=== PATIENT | male | born 1985 | race African-American/Black ===

== ENCOUNTER 2022-09-15 06:14 | Emergency (ER) | payer OTHER ==
--- NOTE | 2022-09-15 06:41 | EDPHYS ---
Physician Documentation [facility] Name: Clayton Shetty JR. Age: 37 yrs Sex: Male : 1985 Arrival Date: 09/15/2022 Time: 06:16 Bed 15 Private MD: ED Physician Joe Angulo HPI: 09/15 06:33 This 37 yrs old Black Male presents to ER via Ambulatory with complaints of Congestion. rn 06:33 The patient or guardian reports nasal congestion. Onset: The symptoms/episode rn began/occurred 2 week(s) ago. Severity of symptoms: At their worst the symptoms were mild, in the emergency department the symptoms are unchanged. Modifying factors: The symptoms are alleviated by nothing, the symptoms are aggravated by nothing. Associated signs and symptoms: Pertinent positives: rhinorrhea, Pertinent negatives: fever, sore throat, vomiting. The patient has experienced similar episodes in the past. The patient has been recently seen by a physician:. Pt reports nasal congestion, for 2 weeks, seen here for this and given abx, slightly improved but not gone. Has also been using multiple over the counter meds in addition to sinus rinses and humidifiers. . Historical: - Allergies: 06:24 No Known Allergies; kl - Home Meds: 06:24 losartan 100 mg Oral tab 1 tab once daily [Active]; kl - PMHx: 06:24 Hypertensive disorder; kl - PSHx: 06:24 Testicle removed; kl - Immunization history:: Adult Immunizations up to date. - Social history:: Smoking status: Patient denies any tobacco usage or history of. - Family history:: not pertinent. - Hospitalizations: : No recent hospitalization is reported. ROS: 06:33 Constitutional: Negative for fever, chills, and weight loss, Eyes: Negative for injury, rn pain, redness, and discharge, ENT: + nasal congestion Cardiovascular: Negative for chest pain, palpitations, and edema, Respiratory: Negative for shortness of breath, cough, wheezing, and pleuritic chest pain. Exam: 06:33 Constitutional: This is a well developed, well nourished patient who is awake, alert, rn and in no acute distress. Head/Face: Normocephalic, atraumatic. Eyes: Periorbital areas with no swelling, redness, or edema. ENT: Inflamed nasal turbinates, no stridor, MMM Vital Signs: 06:23 BP 160 / 92; Pulse 98; Resp 16; Pulse Ox 99% ; Pain 0/10; kl 06:34 Temp 97.9(O); Weight 86.18 kg (R); Height 5 ft. 9 in. (175.26 cm) (R); aa9 06:35 BP 147 / 96; Pulse 86; Resp 17 S; Pulse Ox 99% on R/A; aa9 06:45 BP 147 / 96; Pulse 78; Resp 18 S; Pulse Ox 98% on R/A; aa9 06:34 Body Mass Index 28.06 (86.18 kg, 175.26 cm) aa9 MDM: 06:17 Patient medically screened. rn 06:33 Differential Diagnosis: Upper Respiratory Infection Allergic Rhinitis Other viral rn syndrome. Data reviewed: vital signs, nurses notes, and as a result, I will discharge patient. Counseling: I had a detailed discussion with the patient and/or guardian regarding: the historical points, exam findings, and any diagnostic results supporting the discharge/admit diagnosis, the need for outpatient follow up, to return to the emergency department if symptoms worsen or persist or if there are any questions or concerns that arise at home. Special discussion: I discussed with the patient/guardian in detail that at this point there is no indication for admission to the hospital. It is understood, however, that if the symptoms persist or worsen the patient needs to return immediately for re-evaluation. Based on the history and exam findings, there is no indication for further emergent testing or inpatient evaluation. I discussed with the patient/guardian the need to see the primary care provider for further evaluation of the symptoms. ED course: Pt has pcp appt tomorrow, do not recommend another round of abx. Afebrile, no oxygen requirement. Recommend time and pcp f/u. . Administered Medications: No medications were administered Disposition Summary: 09/15/22 06:41 Discharge Ordered Location: Home rn Problem: an ongoing problem rn Symptoms: have improved rn Condition: Stable rn Diagnosis - Nasal congestion rn Followup: rn - With: Private Physician - When: As needed - Reason: Recheck today's complaints, Re-evaluation by your physician Discharge Instructions: - Discharge Summary Sheet rn - Upper Respiratory Infection, Adult rn Forms: - Medication Reconciliation Form rn - Thank You Letter rn - Antibiotic fashion intern - Prescription Opioid Use rn Signatures: Alma Fernandez RN RN Joe Brownlee MD MD rn
--- NOTE | 2022-09-15 06:41 | ER ---
Nurse's Notes [facility] Name: Clayton Shetty JR. Age: 37 yrs Sex: Male : 1985 Arrival Date: 09/15/2022 Time: 06:16 Bed 15 Private MD: Diagnosis: Nasal congestion Presentation: 09/15 06:23 Chief complaint: Patient states: persistent congestion after 4 days of antibiotics seen here recently for similar complaints. Coronavirus screen: Vaccine status: Patient reports receiving the 2nd dose of the covid vaccine. Ebola Screen: Patient negative for fever greater than or equal to 101.5 degrees Fahrenheit, and additional compatible Ebola Virus Disease symptoms. Initial Sepsis Screen: Does the patient meet any 2 criteria? No. Patient's initial sepsis screen is negative. Does the patient have a suspected source of infection? No. Patient's initial sepsis screen is negative. Risk Assessment: Do you want to hurt yourself or someone else? Patient reports no desire to harm self or others. 06:23 Method Of Arrival: Ambulatory 06:23 Acuity: CEM 4 06:35 Onset of symptoms was September 15, 2022. aa9 Triage Assessment: 06:25 General: Appears in no apparent distress. comfortable, Behavior is calm, cooperative. Pain: Denies pain. Respiratory: No deficits noted. Airway is patent Trachea midline Respiratory effort is even, unlabored, Respiratory pattern is regular, symmetrical. GI: Reports change in bowel habits/size of stool. : No deficits noted. Historical: - Allergies: 06:24 No Known Allergies; - Home Meds: 06:24 losartan 100 mg Oral tab 1 tab once daily [Active]; - PMHx: 06:24 Hypertensive disorder; - PSHx: 06:24 Testicle removed; - Immunization history:: Adult Immunizations up to date. - Social history:: Smoking status: Patient denies any tobacco usage or history of. - Family history:: not pertinent. - Hospitalizations: : No recent hospitalization is reported. Screenin:34 Abuse screen: Denies threats or abuse. Denies injuries from another. Nutritional aa9 screening: No deficits noted. Tuberculosis screening: No symptoms or risk factors identified. Fall Risk None identified. Assessment: 06:36 General: Appears comfortable, well groomed, Behavior is calm, cooperative. Neuro: Level aa9 of Consciousness is awake, alert, obeys commands, Oriented to person, place, time, situation. Cardiovascular: Patient's skin is warm and dry. Respiratory: Airway is patent Respiratory effort is even, labored. Vital Signs: 06:23 BP 160 / 92; Pulse 98; Resp 16; Pulse Ox 99% ; Pain 0/10; kl 06:34 Temp 97.9(O); Weight 86.18 kg (R); Height 5 ft. 9 in. (175.26 cm) (R); aa9 06:35 BP 147 / 96; Pulse 86; Resp 17 S; Pulse Ox 99% on R/A; aa9 06:45 BP 147 / 96; Pulse 78; Resp 18 S; Pulse Ox 98% on R/A; aa9 06:34 Body Mass Index 28.06 (86.18 kg, 175.26 cm) aa9 ED Course: 06:16 Patient arrived in ED. bp1 06:16 Joe Angulo MD is Attending Physician. rn 06:18 Sarah Devlin RN is Primary Nurse. aa9 06:24 Triage completed. kl 06:34 Arm band placed on right wrist. aa9 06:35 Patient has correct armband on for positive identification. Bed in low position. Call aa9 light in reach. 06:35 Door closed. Lights dimmed. aa9 06:45 No provider procedures requiring assistance completed. Patient did not have IV access aa9 during this emergency room visit. Administered Medications: No medications were administered Medication: 06:34 VIS not applicable for this client. aa9 Outcome: 06:41 Discharge ordered by . rn 06:46 Discharged to home ambulatory. aa9 06:46 Condition: stable 06:46 Discharge instructions given to patient, Instructed on discharge instructions, follow up and referral plans. Demonstrated understanding of instructions, follow-up care. 06:46 Patient left the ED. aa9 Signatures: Alma Fernandez RN RN kl Nieto, Roman, MD MD rn Paniauga, Brittany bp1 Avalos, Aylin, RN RN aa9
[2022-09-15 06:51] VITALS: TEMP 97.9
[2022-09-15 06:53] VITALS: BP 147/96
[2022-09-15 06:54] VITALS: O2SAT 98
== END 2022-09-15 06:46 | disposition home or self-care (01) ==
LOC: ER 06:14
DX: R09.81 Nasal congestion (principal); I10 Essential (primary) hypertension
CPT/HCPCS: 99281

== ENCOUNTER 2022-09-18 17:02 | Emergency (ER) | payer OTHER ==
--- OUTSIDE RECORDS SUMMARY | 2022-09-18 17:05 | XMS REPORT | Continuity of Care Document ---
:1985 Author Organization [facility] t Address [address] [place] [address] Care Team Providers Name Role Phone SHIVA BROOKS Primary Care Physician Unavailable MARLYN MAHER Attending Clinician Unavailable Nika ARTIFICIAL LIMB FITTERMarlyn Blanton Attending Clinician MARLYN MAHER Admitting Clinician Unavailable Problems This patient has no known problems. Allergies, Adverse Reactions, Alerts Allergy Allergy Status Severity Reaction(s) Onset Inactive Treating Comm ents Source Name Type Date Date Clinician NO KNOWN Drug Active [facility] ALLERGIE Class ity of [facility] Social History Social Habit Start Date Stop Date Quantity Comments Source Exposure to 2022-04-02 2022-04-12 Not sure [facility] SARS-CoV-2 (event) 00:00:00 19:31:00 Medica l Branch Sex Assigned At [birth year] [facility] 00:00:00 00:00:00 [facility] Smoking Status Start Date Stop Date Source Unknown if ever smoked [facility] Medications Ordered Filled Start Stop Current Ordering Indication Dosage Frequency Signature Comments Components Source Medication Medication Date Date Medication? Clinician (SIG) Name Name ketorolac 2021- No 30mg 30 mg, Unive rs (TORADOL) 04-13 Slow IV ity of injection 02:45: 01:43 Push, [place] 30 mg 00 :00 ONCE, 1 Medical dose, On Branch 04/12/22 at 2145, SEGUNDO ibuprofen Yes [id number] 800mg Take 1 [facility] 800 mg 5-16 tablet by ity of tablet 00:00: mouth [place] 00 every 8 Medical (eight) Branch hours as needed for Pain (scale 4-6). methocarbam Yes [id number] 750mg Take 1 Univers oL 750 mg 5-16 tablet by ity o f tablet 00:00: mouth 4 [place] 00 (four) Medical times Branch daily as needed for Pain (scale 7-10). Vital Signs Vital Name Observation Time Observation Value Comments Source Systolic blood 2022-04-13 02:08:00 147 [facility]Hg[facility] Diastolic blood 2022-04-13 02:08:00 96 mm[Hg] [facility] Heart rate 2022-04-13 02:08:00 62 /min [facility] Respiratory rate 2022-04-13 02:08:00 16 /min [facility] Oxygen saturation in 2022-04-13 02:08:00 100 /min [facility] Arterial blood by [facility] Pulse oximetry [place] Body temperature 2022-04-13 00:35:00 36.78 Jessica [facility] Body height 2022-04-13 00:35:00 172.7 cm [facility] Body weight 2022-04-13 00:35:00 83.915 kg [facility] BMI 2022-04-13 00:35:00 28.13 kg/m2 [facility] Procedures Procedure Date / Time Performing Clinician Source Performed XR CHEST 1 VW 2022-04-13 01:02:00 Marlyn Maher [facility] TROPONIN I 2022-04-13 00:53:00 [facility] COMP. METABOLIC PANEL 2022-04-13 00:53:00 Marlyn Maher [facility] ([id number]) [facility] CBC WITH DIFF 2022-04-13 00:53:00 Marlyn Maher [facility] PROTHROMBIN TIME / INR 2022-04-13 00:53:00 Marlyn Maher [facility] URINALYSIS 2022-04-13 00:53:00 Marlyn Maher [facility] N-TERMINAL PRO-BNP 2022-04-13 00:53:00 [facility] En[facility] Start End Encounter Admission Attending Care Care Encounter Source Date/Time Date/Time Type Type Clinicians Facility Department ID 2022-04-12 2022-04-12 Emergency X NIKA [email or web address] ERT [id number] [facility] 19:25:00 21:10:00 MARLYN prietojeff [facility] 2022-04-12 2022-04-12 [facility] [id number] [facility] 19:25:00 21:10:00 Marlyn HANSON [id number] i ty [facility] [id number] [facility] [id number] [place] [id number] [place] Results Test Description Test Time Test Comments Results Result Comments Source TROPONIN I 2022-04-13 01:26:29 Test Item Value Reference Range Interpretation Comme nts TROPONIN I (test code = 0.008 ng/mL See_Comment [Au tomated message] The [id number]) system which ge nerated this result tra nsmitted reference range : <=0.034. The reference r jordi was not used to int erpret this result as normal/abnormal . OZZY (test code = OZZY) Reference (Normal) Range (defined by the 99th percentile reference limit): <= 0.034 ng/mL Note: Cardiac troponin begins to rise 3-4 hours after the onset of ischemia. Repeat in 4-6 hours if the sample was drawn within 3-4 hours of the onset of the symptom and found normal. Diagnosis of myocardial injury is made with acute changes in cTn concentrations with at least one serial sample above the 99th percentile upper reference limit (URL), taken together with the patient's clinical presentation. Biotin has been reported to cause a negative bias, interpret results relative to patient's use of biotin. Lab Interpretation Normal (test code = 43754-5) [facility] [id number] 01:23:27 Test Item Value Reference Range Interpretation Comments NT-proBNP (test code 64 pg/mL See_Comment [Autom ated = [id number]) message] The system which generated this result transmitted reference range : <=125. The reference range was not used to interpret this result as normal/abnormal . OZZY (test code = OZZY) Biotin has been reported to cause a negative bias, interpret results relative to patient's use of biotin. Lab Interpretation Normal (test code = 00855-3) [facility] [place] [facility]. METABOLIC PANEL ([id number])2022-04-13 01:14:46 Test Item Value Reference Range Interpretation Comments NA (test code = 136 mmol/L 135-145 6737164951) K (test code = 4.1 mmol/L 3.5-5.0 8410755474) CL (test code = 105 mmol/L 98-108 7731936780) CO2 TOTAL (test code 23 mmol/L 23-31 = 3075356216) AGAP (test code = 2-16 7752590800) BUN (test code = 18 mg/dL 7-23 4049439951) GLUCOSE (test code = 98 mg/dL 70-110 5450953602) CREATININE (test code 1.20 mg/dL 0.60-1.25 = 2624421739) TOTAL BILI (test code 0.6 mg/dL 0.1-1.1 = 1202541211) CALCIUM (test code = 9.3 mg/dL 8.6-10.6 3693822222) T PROTEIN (test code 7.3 g/dL 6.3-8.2 = 3313781294) ALBUMIN (test code = 4.7 g/dL 3.5-5.0 6650782060) ALK PHOS (test code = 46 U/L 34-122 9577542978) ALTv (test code = 19 U/L 5-50 1742-6) AST(SGOT) (test code 26 U/L 13-40 = 0695185190) eGFR (test code = mL/min/1.73m2 9342607809) OZZY (test code = OZZY) Association of Glomerular Filtration Rate (GFR) and Staging of Kidney Disease* + + +- +| GFR (mL/min/1.73 m2) ?| With Kidney Damage ?| ?Without Kidney Damage+ ------+ ----+ ------+| ?>90 ?| ?Stage one ?| ? Normal ?+ -+ + -+| ?60-89 ?| ?Stage two ?| ? Decreased GFR ? + + +- +| ?30-59 ?| ?Stage three ?| ? Stage three ? + + +- +| ?15-29 ?| ?Stage four ? | ? Stage four ?+ -+ + -+| ?<15 (or dialysis) ? ?| ?Stage five ? | ? Stage five ?+ -+ + -+ *Each stage assumes the associated GFR level has been in effect for at least three months. ?Stages 1 to 5, with or without kidney disease, indicate chronic kidney disease. Notes: Determination of stages one and two (with eGFR >59mL/min/1.73 m2) requires estimation of kidney damage for at least three months as defined by structural or functional abnormalities of the kidney, manifested by either:Pathological abnormalities or Markers of kidney damage (including abnormalities in the composition of the blood or urine or abnormalities in imaging tests). [facility] / [id number] 01:13:46 Test Item Value Reference Range Interpretation Comments PROTIME PATIENT (test See_Comment [Auto mated message] code = 5964-2) The system wh ich generated this result transmitted ref erence range: 12.0 - 1 4.7 Seconds. The re ference range was not u sed to interpret this result as normal/abnor mal. INR (test code = 6301-6) Nor mal INR <1.1; Warfarin Therap eutic range 2.0 to 3. 0 or 2.5 to 3.5, dep ending upon the indica tions. Lab Interpretation (test Normal code = 67327-3) [facility] WITH [id number] 01:02:25 Test Item Value Reference Range Interpretation Comments WBC (test code = See_Comment L [Automated 4490-2) message] The sy stem which generated this result transmitted reference range : 4.20 - 10.70 10*3/?L. The reference range was not used to interpret this result as normal/abnormal . RBC (test code = See_Comment [Automated 369-8) message] The sy stem which generated this result transmitted reference range : 4.26 - 5.52 10*6/?L. The reference range was not used to interpret this result as normal/abnormal . HGB (test code = 13.9 g/dL 12.2-16.4 718-7) HCT (test code = 41.5 % 38.4-49.3 4544-3) MCV (test code = 86.5 fL 81.7-95.6 787-2) MCH (test code = 29.0 pg 26.1-32.7 785-6) MCHC (test code = 33.5 g/dL 31.2-35.0 786-4) RDW-SD (test code = 41.2 fL 38.5-51.6 46716-6) RDW-CV (test code = 13.1 % 12.1-15.4 788-0) PLT (test code = See_Comment [Automated 777-3) message] The sy stem which generated this result transmitted reference range : 150 - 328 10*3/ ?L. The reference r jordi was not used to interpret this result as normal/abnormal . MPV (test code = 10.2 fL 9.8-13.0 26089-0) NRBC/100 WBC (test See_Comment [Automat ed code = 8602612553) message] The system which generated this result transmitted reference range : 0.0 - 10.0 /100 WBCs. The refer ence range was not u sed to interpret th is result as normal/abnormal . NRBC x10^3 (test code <0.01 See_Comment [Auto mated = 2685871870) message] The s ystem which generated this result transmitted reference range : 10*3/?L. The reference range was not used to interpret this result as normal/abnormal . GRAN MAT (NEUT) % 53.9 % (test code = 770-8) IMM GRAN % (test code 0.30 % = 9107752555) LYMPH % (test code = 29.5 % 736-9) MONO % (test code = 13.4 % 5905-5) EOS % (test code = 2.4 % 713-8) BASO % (test code = 0.5 % 706-2) GRAN MAT x10^3(ANC) 2.01 10*3/uL 1.99-6.95 (test code = 2145077316) IMM GRAN x10^3 (test <0.03 0.00-0.06 code = 2558239549) LYMPH x10^3 (test code 1.10 10*3/uL 1.09-3.23 = 731-0) MONO x10^3 (test code 0.50 10*3/uL 0.36-1.02 = 742-7) EOS x10^3 (test code = 0.09 10*3/uL 0.06-0.53 711-2) BASO x10^3 (test code <0.03 0.01-0.09 = 704-7) Lab Interpretation Abnormal (test code = 46142-5) [facility]"
[2022-09-18] MEDS ORDERED: KETOROLAC 30 MG/ML INJ ONE (18:07)
[2022-09-18 18:08] LABS: Absolute Lymphocytes (CBC) 0.6 K/uL (0.7-4.9); Hematocrit 40.5 % (39.6-49.0); Lymphocytes % 11.3 % (15.3-44.8); MCV 85.4 fL (80-100); MPV 8.4 fL (7.6-11.3); RBC Red Blood Cell Count 4.74 M/uL (4.33-5.43)
[2022-09-18 18:23] LABS: Protime INR 1.19
[2022-09-18 18:27] LABS: Magnesium 2.2 mg/dL (1.8-2.4); Potassium 3.9 mmol/L (3.5-5.1); Troponin High Sensitivity 8.1 pg/mL (<58.9)
[2022-09-18 18:40] LABS: Urine Blood Negative (Negative); Urine Glucose Negative (Negative); Urine Protein Negative (Negative); Urine Specific Gravity 1.015 (1.005-1.030); Urine pH 8.5 (5.0-7.0)
--- NOTE | 2022-09-18 18:45 | RAD REPORT ---
EXAM DESCRIPTION: Jane Single View09/18/2022 6:05 pm CLINICAL HISTORY: Chest pain COMPARISON: none FINDINGS: The lungs appear clear of acute infiltrate. The heart is normal size IMPRESSION: No acute abnormalities displayed
[2022-09-18 19:10] LABS: Urine RBC <5 /HPF (None Seen)
[2022-09-18 19:13] LABS: Barbiturates NEGATIVE (NEGATIVE); Benzodiazepines NEGATIVE (NEGATIVE); Cocaine NEGATIVE (NEGATIVE); METHAMPHETAM NEGATIVE (NEGATIVE); Methadone NEGATIVE (NEGATIVE); Opiates NEGATIVE (NEGATIVE); Phencyclidine NEGATIVE (NEGATIVE); THC Cannibis NEGATIVE (NEGATIVE)
--- NOTE | 2022-09-18 20:20 | EDPHYS ---
Physician Documentation [facility] Name: Clayton Shetty Jr Age: 37 yrs Sex: Male : 1985 Arrival Date: 09/18/2022 Time: 17:04 Bed 5 Private MD: Elvis Mendez R ED Physician Joe Angulo HPI: 09/18 17:27 This 37 yrs old Black Male presents to ER via Ambulatory with complaints of Chest cp Tightness. 17:27 The patient or guardian reports chest pain that is located primarily in the anterior cp chest wall, left. 17:27 The pain does not radiate. Associated signs and symptoms: Pertinent positives: cough cp and nasal congestion times 2 weeks. The chest pain is described as tightness. Duration: The patient or guardian reports a single episode, that is still ongoing, and unchanged, started today. 17:27 Severity of pain: in the emergency department the pain is unchanged despite home cp interventions. Historical: - Allergies: 17:12 No Known Allergies; hb - Home Meds: 17:12 losartan 100 mg Oral tab 1 tab once daily [Active]; hb - PMHx: 17:12 Hypertensive disorder; hb - PSHx: 17:12 Testicle removed; hb - Immunization history:: Adult Immunizations unknown. - Social history:: Smoking status: unknown. ROS: 17:30 Constitutional: Negative for fever. cp 17:30 Cardiovascular: Positive for chest pain, Negative for edema, palpitations. cp 17:30 Eyes: Negative for injury, pain, redness, and discharge. cp 17:30 ENT: Negative for drainage from ear(s), ear pain, sore throat, difficulty swallowing, difficulty handling secretions. 17:30 Respiratory: Negative for cough, shortness of breath, wheezing. 17:30 Abdomen/GI: Negative for abdominal pain, nausea, vomiting, and diarrhea. 17:30 Back: Negative for pain at rest, pain with movement. 17:30 : Negative for urinary symptoms. Exam: 17:35 Constitutional: The patient appears in no acute distress, alert, awake, cp non-diaphoretic, non-toxic, well developed, well nourished. 17:35 Head/Face: Normocephalic, atraumatic. cp 17:35 Eyes: Periorbital structures: appear normal, Conjunctiva: normal, no exudate, no injection, Sclera: no appreciated abnormality, Lids and lashes: appear normal, bilaterally. 17:35 ENT: External ear(s): are unremarkable, Ear canal(s): are normal, clear, TM's: dullness, bilaterally, Nose: is normal, Mouth: Lips: moist, Oral mucosa: pink and intact, moist, Posterior pharynx: Airway: no evidence of obstruction, patent, Tonsils: are normal in appearance, erythema, is not appreciated, exudate, is not appreciated. 17:35 Neck: ROM/movement: is normal, is supple, without pain, no range of motions limitations. 17:35 Chest/axilla: Inspection: normal, Palpation: is normal, no crepitus, no tenderness. 17:35 Cardiovascular: Rate: tachycardic, Rhythm: regular, Heart sounds: murmur, not appreciated, Edema: is not appreciated, JVD: is not appreciated. 17:35 Respiratory: the patient does not display signs of respiratory distress, Respirations: normal, no use of accessory muscles, no retractions, labored breathing, is not present, Breath sounds: are clear throughout, no decreased breath sounds, no stridor, no wheezing. 17:35 Abdomen/GI: Inspection: abdomen appears normal, Palpation: abdomen is soft and non-tender, in all quadrants. 17:35 Back: pain, is absent, ROM is normal. 17:35 Skin: cellulitis, is not appreciated, no rash present. 17:35 Neuro: Orientation: to person, place \T\ time. Mentation: is normal, Motor: moves all fours, strength is normal, Sensation: is normal. 17:37 ECG was reviewed by the Attending Physician. cp Vital Signs: 17:11 BP 176 / 108; Pulse 110; Resp 18; Temp 97.4; Pulse Ox 98% on R/A; Weight 83.01 kg; hb Height 5 ft. 9 in. (175.26 cm); Pain 5/10; 18:19 BP 152 / 96; Pulse 86; Resp 16; Pulse Ox 100% on R/A; jd3 19:52 BP 162 / 102; Pulse 107; Resp 16; Pulse Ox 100% on R/A; jb4 17:11 Body Mass Index 27.02 (83.01 kg, 175.26 cm) hb MDM: 17:14 Patient medically screened. cp 18:00 Differential diagnosis: abnormal EKG, acute myocardial infarction, acute pericarditis, cp chest wall pain, pericarditis, pleurisy, pneumonia, pneumothorax, pulmonary embolus. 20:19 Data reviewed: vital signs, nurses notes, lab test result(s), EKG, radiologic studies, cp plain films. 20:19 Test interpretation: by ED physician or midlevel provider: ECG, plain radiologic cp studies. Counseling: I had a detailed discussion with the patient and/or guardian regarding: the historical points, exam findings, and any diagnostic results supporting the discharge/admit diagnosis, lab results, radiology results, the need for outpatient follow up, a family practitioner, to return to the emergency department if symptoms worsen or persist or if there are any questions or concerns that arise at home. Response to treatment: the patient's symptoms have markedly improved after treatment. Special discussion: Based on the patient's history, exam, and Dx evaluation, there is no indication for emergent intervention or inpatient Tx. It is understood by the patient/guardian that if the Sx's persist or worsen they need to return immediately for re-evaluation. 20:19 ED course: VS noted. EKG and troponin normal. Low suspicion for cardiac cause of pain. cp Pain markedly improved with Toradol. Will discharge to home for continued monitoring. 09/18 17: Order name: Basic Metabolic Panel; Complete Time: 18:35 cp 09/18 18:35 Interpretation: Normal except: GFR 80. cp 09/18 17: Order name: CBC with Diff; Complete Time: 18:35 cp 09/18 18:35 Interpretation: Normal except: HGB 13.4; DANIA% 79.9; LYM% 11.3; LYMA 0.6. cp 09/18 17: Order name: D-Dimer; Complete Time: 18:35 cp 09/18 18:35 Interpretation: D-DIMER 329; Reviewed. cp 09/18 17: Order name: Magnesium; Complete Time: 18:35 cp 09/18 17: Order name: NT PRO-BNP; Complete Time: 18:35 cp 09/18 17: Order name: PT-INR; Complete Time: 18:35 cp 09/18 17: Order name: Troponin HS; Complete Time: 18:35 cp 09/18 20:21 Interpretation: Reviewed. cp 09/18 17:27 Order name: XRAY Chest (1 view); Complete Time: 18:56 cp 09/18 17:27 Order name: EKG; Complete Time: 17:28 cp 09/18 17:27 Order name: Cardiac monitoring; Complete Time: 17:44 cp 09/18 17:27 Order name: Urine Microscopic Only; Complete Time: 19:19 cp 09/18 17:27 Order name: Urine Drug Screen; Complete Time: 19:19 cp 09/18 19:19 Interpretation: Reviewed. cp 09/18 18:40 Order name: Urine Dipstick-Ancillary; Complete Time: 18:56 EDMS 09/18 18:57 Interpretation: Normal except: UPH 8.5. cp 09/18 17:27 Order name: EKG - Nurse/Tech; Complete Time: 17:44 cp 09/18 17:27 Order name: IV Saline Lock; Complete Time: 17:57 cp 09/18 17:27 Order name: Labs collected and sent; Complete Time: 17:57 cp 09/18 17:27 Order name: O2 Per Protocol; Complete Time: 17:44 cp 09/18 17:27 Order name: O2 Sat Monitoring; Complete Time: 17:44 cp 09/18 17:27 Order name: Urine Dipstick-Ancillary (obtain specimen); Complete Time: 18:41 cp EC:37 Rate is 107 beats/min. Rhythm is regular. DE interval is normal. QRS interval is cp normal. QT interval is normal. T waves are Inverted in lead aVR. Interpreted by me. Reviewed by me. Administered Medications: 18:10 Drug: Ketorolac 15 mg Route: IVP; Site: right antecubital; jd3 18:41 Follow up: Response: No adverse reaction iw Disposition: 09/19 07:16 Co-signature as Attending Physician, Joe Angulo MD. rn Disposition Summary: 09/18/22 20:19 Discharge Ordered Location: Home cp Problem: new cp Symptoms: have improved cp Condition: Stable cp Diagnosis - Chest pain, unspecified cp - Nasal congestion cp Followup: cp - With: Private Physician - When: 2 - 3 days - Reason: Recheck today's complaints Discharge Instructions: - Discharge Summary Sheet cp - Nonspecific Chest Pain, Adult cp - Aspirin and Your Heart cp Forms: - Medication Reconciliation Form cp - Thank You Letter cp - Antibiotic Education cp - Prescription Opioid Use cp Prescriptions: - Flonase Allergy Relief 50 mcg/actuation Nasal spray,suspension - inhale 1 spray by INTRANASAL route once daily; 1 Device; Refills: 0, Product cp Selection Permitted - Diclofenac Sodium 75 mg Oral Tablet Sustained Release - take 1 tablet by ORAL route 2 times per day; 30 tablet; Refills: 0, Product cp Selection Permitted Signatures: Dispatcher [employer] EDJoe Bahena MD MD rn Page, Corey, PA PA cp Baxter, Heather, RN RN hb Davies, Jonathon, RN RN jd3 Williams, Irene RN iw Corrections: (The following items were deleted from the chart) 17:56 10 17:27 Associated signs and symptoms: Pertinent positives: cough times 2 weeks, cp cp
--- NOTE | 2022-09-18 20:20 | ER ---
Nurse's Notes [facility] Name: Clayton Shetty Jr Age: 37 yrs Sex: Male : 1985 Arrival Date: 09/18/2022 Time: 17:04 Bed 5 Private MD: Elvis Mendez R Diagnosis: Chest pain, unspecified;Nasal congestion Presentation: 09/18 17:11 Chief complaint: Sudden onset left sided chest pain that started while out shopping hb just prior to arrival. Pt also c/o cough and congestion x 2 weeks, received cortisone injection yesterday from Dr. Mendez. Coronavirus screen: Client presents with at least one sign or symptom that may indicate coronavirus-19. Standard/surgical mask placed on the client. Provider contacted for isolation considerations. Ebola Screen: No symptoms or risks identified at this time. Risk Assessment: Do you want to hurt yourself or someone else? Patient reports no desire to harm self or others. Onset of symptoms was September 18, 2022. 17:11 Method Of Arrival: Ambulatory hb 17:11 Acuity: CEM 3 hb 18:01 Initial Sepsis Screen: Does the patient meet any 2 criteria? No. Patient's initial jd3 sepsis screen is negative. Does the patient have a suspected source of infection? No. Patient's initial sepsis screen is negative. Historical: - Allergies: 17:12 No Known Allergies; hb - Home Meds: 17:12 losartan 100 mg Oral tab 1 tab once daily [Active]; hb - PMHx: 17:12 Hypertensive disorder; hb - PSHx: 17:12 Testicle removed; hb - Immunization history:: Adult Immunizations unknown. - Social history:: Smoking status: unknown. Screenin:00 Abuse screen: Denies threats or abuse. Nutritional screening: No deficits noted. jd3 Tuberculosis screening: No symptoms or risk factors identified. Fall Risk IV access (20 points). Ambulatory Aid- None/Bed Rest/Nurse Assist (0 pts). Gait- Normal/Bed Rest/Wheelchair (0 pts) Mental Status- Oriented to own ability (0 pts). Total Jones Fall Scale indicates No Risk (0-24 pts). Assessment: 17:58 General: Appears in no apparent distress. comfortable, Behavior is calm, cooperative, jd3 appropriate for age, anxious. Pain: Complains of pain in chest Pain does not radiate. Pain began suddenly, Is continuous. Neuro: Ortiz Agitation-Sedation Scale (RASS): 0 - Alert and Calm Level of Consciousness is awake, alert, obeys commands, Oriented to person, place, time, situation. Cardiovascular: Denies chest pain, Heart tones S1 S2 present Capillary refill < 3 seconds Patient's skin is warm and dry. Rhythm is regular. Respiratory: Airway is patent Respiratory effort is even, unlabored, Respiratory pattern is regular, symmetrical, Breath sounds are clear bilaterally. GI: Abdomen is non-distended, Abd is soft and non tender X 4 quads. Reports cramping. : No signs and/or symptoms were reported regarding the genitourinary system. EENT: No signs and/or symptoms were reported regarding the EENT system. Derm: Skin is intact, Skin is dry, Skin is normal, Skin temperature is warm. Musculoskeletal: Circulation, motion, and sensation intact. Range of motion: intact in all extremities. 18:19 Reassessment: Patient appears in no apparent distress at this time. Patient and/or jd3 family updated on plan of care and expected duration. Pain level reassessed. Patient is alert, oriented x 3, equal unlabored respirations, skin warm/dry/pink. 19:00 Reassessment: Patient appears in no apparent distress at this time. Patient and/or jb4 family updated on plan of care and expected duration. Pain level reassessed. Patient is alert, oriented x 3, equal unlabored respirations, skin warm/dry/pink. 20:00 Reassessment: Patient appears in no apparent distress at this time. Patient and/or jb4 family updated on plan of care and expected duration. Pain level reassessed. Patient is alert, oriented x 3, equal unlabored respirations, skin warm/dry/pink. Vital Signs: 17:11 BP 176 / 108; Pulse 110; Resp 18; Temp 97.4; Pulse Ox 98% on R/A; Weight 83.01 kg; hb Height 5 ft. 9 in. (175.26 cm); Pain 5/10; 18:19 BP 152 / 96; Pulse 86; Resp 16; Pulse Ox 100% on R/A; jd3 19:52 BP 162 / 102; Pulse 107; Resp 16; Pulse Ox 100% on R/A; jb4 17:11 Body Mass Index 27.02 (83.01 kg, 175.26 cm) ED Course: 17:04 Patient arrived in ED. mr 17:05 Elvis Mendez MD is Private Physician. mr 17:06 Noe Chavez PA is PHCP. cp 17:06 Joe Angulo MD is Attending Physician. cp 17:12 Triage completed. 17:18 Giovani Goel, RN is Primary Nurse. jd3 17:58 Arm band placed on. jd3 18:01 Patient has correct armband on for positive identification. Placed in gown. Bed in low jd3 position. Call light in reach. Side rails up X2. Client placed on continuous cardiac and pulse oximetry monitoring. NIBP monitoring applied. global position system technician on. Pulse ox on. NIBP on. Warm blanket given. PO fluids given. 18:01 Inserted saline lock: 20 gauge in right antecubital area, using aseptic technique. jd3 Blood collected. Patient maintains SpO2 saturation greater than 95% on room air. 18:14 XRAY Chest (1 view) In Process Unspecified. EDMS 20:26 No provider procedures requiring assistance completed. IV discontinued, intact, jb4 bleeding controlled, No redness/swelling at site. Pressure dressing applied. Administered Medications: 18:10 Drug: Ketorolac 15 mg Route: IVP; Site: right antecubital; jd3 18:41 Follow up: Response: No adverse reaction iw Medication: 18:01 VIS not applicable for this client. jd3 Outcome: 20:19 Discharge ordered by MD. cp 20:26 Discharged to home ambulatory. jb4 20:26 Condition: stable 20:26 Discharge instructions given to patient, Instructed on discharge instructions, follow up and referral plans. medication usage, Demonstrated understanding of instructions, follow-up care, medications. 20:27 Patient left the ED. jb4 Signatures: Dispatcher [employer] EDNE Ashley Harden Sofie Ramírez, RN RN Noe Chavez PA PA Katiana Andres, AN NOLAN Mark Hackett RN RN jb4 Giovani Goel RN RN jd3
[2022-09-18 20:34] VITALS: TEMP 97.4
[2022-09-18 20:35] VITALS: O2SAT 100
[2022-09-18 20:36] VITALS: BP 162/102
--- NOTE | 2022-09-20 18:42 | EKG ---
Test Date: 2022-09-18 Test Time: 17:33:49 Sugar Grinder: EZIO MEASUREMENT RESULTS: Intervals: Rate: 107 IA: 134 QRSD: 84 QT: 334 QTc: 445 [place]: P: 68 IA: 134 QRS: 61 T: 32 INTERPRETIVE STATEMENTS: Sinus tachycardia Otherwise normal ECG No previous ECG available for comparison Electronically Signed On 09-20-22 18:38:40 CDT by Patrick Gage
== END 2022-09-18 20:27 | disposition home or self-care (01) ==
LOC: ER 17:02
DX: R07.89 Other chest pain (principal); R09.81 Nasal congestion; I10 Essential (primary) hypertension
CPT/HCPCS: 36415; 71045; 80048; 80307; 81003; 81015; 83735; 83880; 84484; 85025; 85379; 85610; 93005; 96374; 99285

== ENCOUNTER 2022-10-02 00:19 | Emergency (ER) | payer OTHER ==
--- OUTSIDE RECORDS SUMMARY | 2022-10-02 00:24 | XMS REPORT | Continuity of Care Document ---
:1985 Author Organization [facility] t Address [address] [place] [address] Care Team Providers Name Role Phone SHIVA BROOKS Primary Care Physician Unavailable MARLYN MAHER Attending Clinician Unavailable Nika [employer] INSPECTORMarlyn Blanton Attending Clinician MARLYN MAHER Admitting Clinician Unavailable Problems This patient has no known problems. Allergies, Adverse Reactions, Alerts Allergy Allergy Status Severity Reaction(s) Onset Inactive Treating Comm ents Source Name Type Date Date Clinician NO KNOWN Drug Active [facility] Social History Social Habit Start Date Stop Date Quantity Comments Source Exposure to 2022-04-02 2022-04-[address] [facility] SARS-CoV-2 (event) 00:00:00 19:31:00 Medica l Branch Sex Assigned At [birth year] [facility] 00:00:00 00:00:00 [facility] Smoking Status Start Date Stop Date Source Unknown if ever smoked [facility] Medications Ordered Filled Start Stop Current Ordering Indication Dosage Frequency Signature Comments Components Source Medication Medication Date Date Medication? Clinician (SIG) Name Name ketorolac No 30mg 30 mg, Unive rs (TORADOL) 04-13 Slow IV ity of injection 02:45: 01:43 [place], [place] 30 mg 00 :00 ONCE, 1 Medical dose, On Branch 04/12/22 at 2145, SEGUNDO ibuprofen Yes [id number] 800mg Take 1 [facility] 800 mg 5-16 tablet by ity of tablet 00:00: mouth [place] 00 every 8 Medical (eight) Branch hours as needed for Pain (scale 4-6). methocarbam Yes [id number] 750mg Take 1 Univers oL 750 mg 5-16 tablet by ity o f tablet 00:00: mouth 4 [place] 00 (four) Medical times Branch daily as needed for Pain (scale 7-10). Vital Signs Vital Name Observation Time Observation Value Comments Source Systolic blood 2022-04-13 02:08:00 147 mm[Hg] [facility] Diastolic blood 2022-04-13 02:08:00 96 mm[Hg] [facility] Heart rate 2022-04-13 02:08:00 62 /min [facility] Respiratory rate 2022-04-13 02:08:00 16 /min [facility] Oxygen saturation in 2022-04-13 02:08:00 100 /min [facility] Arterial blood by [facility] Pulse oximetry [place] Body temperature 2022-04-13 00:35:00 36.78 Jessica [facility] Body height 2022-04-13 00:35:00 172.7 cm [facility] Body weight 2022-04-13 00:35:00 83.915 kg [facility] BMI 2022-04-13 00:35:00 28.13 kg/m2 [facility] Procedures Procedure Date / Time Performing Clinician Source Performed XR CHEST 1 VW 2022-04-13 01:02:00 Marlyn Maher [facility] TROPONIN I 2022-04-13 00:53:[address]. METABOLIC PANEL 2022-04-13 00:53:00 Marlyn Maher [facility] ([id number]) [facility] CBC WITH DIFF 2022-04-13 00:53:00 Marlyn Maher [facility] PROTHROMBIN TIME / INR 2022-04-13 00:53:00 Marlyn Maher [facility] URINALYSIS 2022-04-13 00:53:00 Marlyn Maher [facility] N-TERMINAL PRO-BNP 2022-04-13 00:53:00 [facility] En[facility] Start End Encounter Admission Attending Care Care Encounter Source Date/Time Date/Time Type Type Clinicians Facility Department ID 2022-04-12 2022-04-12 Emergency X [facility] ERT [id number] [facility] 19:25:00 21:10:00 MARLYN prietojeff [facility] 2022-04-12 2022-04-12 [id number] [facility] 19:25:00 21:10:00 Marlyn OKEANA [id number] i ty [facility] [id number] [facility] [id number] [place] [id number] [place] Results Test Description Test Time Test Comments Results Result Comments Source TROPONIN I 2022-04-13 01:26:29 Test Item Value Reference Range Interpretation Comme nts TROPONIN I (test code = 0.008 ng/mL See_Comment [Au tomated message] The [id number]) system which ge nerated this result tra [...] biotin. Lab Interpretation Normal (test code = 91955-2) [facility] [id number] 01:23:27 Test Item Value Reference Range Interpretation Comments NT-proBNP (test code 64 pg/mL See_Comment [Autom ated = 6260214473) message] The system which generated this result transmitted reference range : <=125. The reference range was not used to interpret this result as normal/abnormal . OZZY (test code = OZZY) Biotin has been reported to cause a negative bias, interpret results relative to patient's use of biotin. Lab Interpretation Normal (test code = 18922-1) [facility]. METABOLIC PANEL ([id number])2022-04-13 01:14:46 Test Item Value Reference Range Interpretation Comments NA (test code = 136 mmol/L 135-145 1902729572) K (test code = 4.1 mmol/L 3.5-5.0 6016199813) CL (test code = 105 mmol/L 98-108 2432005773) CO2 TOTAL (test code 23 mmol/L 23-31 = 5260521128) AGAP (test code = 2-16 9719213870) BUN (test code = 18 mg/dL 7-23 8441354080) GLUCOSE (test code = 98 mg/dL 70-110 4411410758) CREATININE (test code 1.20 mg/dL 0.60-1.25 = 4764628287) TOTAL BILI (test code 0.6 mg/dL 0.1-1.1 = 9547773419) CALCIUM (test code = 9.3 mg/dL 8.6-10.6 5970883810) T PROTEIN (test code 7.3 g/dL 6.3-8.2 = 7711419452) ALBUMIN (test code = 4.7 g/dL 3.5-5.0 7698957390) ALK PHOS (test code = 46 U/L 34-122 1761519735) ALTv (test code = 19 U/L 5-50 1742-6) AST(SGOT) (test code 26 U/L 13-40 = 0324847241) eGFR (test code = mL/min/1.73m2 8629495841) OZZY (test code = OZZY) Association of [...] or urine or abnormalities in imaging tests). [facility] / [id number] 01:13:46 Test Item Value Reference Range Interpretation [...] tions. Lab Interpretation (test Normal code = 60394-0) [facility] WITH [id number] 01:02:25 Test Item Value Reference Range Interpretation Comments WBC (test code = See_Comment L [Automated 6890-2) message] The sy stem which generated this result transmitted reference range : 4.20 - 10.70 10*3/?L. The reference range was not used to interpret this result as normal/abnormal . RBC (test code = See_Comment [Automated 659-8) message] The sy stem which generated this [...] RDW-SD (test code = 41.2 fL 38.5-51.6 11206-2) RDW-CV (test code = 13.1 % 12.1-15.4 788-0) PLT (test code = See_Comment [Automated 777-3) message] The sy stem which generated this result transmitted reference range : 150 - 328 10*3/ ?L. The reference r jordi was not used to interpret this result as normal/abnormal . MPV (test code = 10.2 fL 9.8-13.0 06313-3) NRBC/100 WBC (test See_Comment [Automat ed code = 5244885853) message] The system which generated this result transmitted reference range : 0.0 - 10.0 /100 WBCs. The refer ence range was not u sed to interpret th is result as normal/abnormal . NRBC x10^3 (test code <0.01 See_Comment [Auto mated = 7238931734) message] The s ystem which generated this result transmitted reference range : 10*3/?L. The reference range was not used to interpret this result as normal/abnormal . GRAN MAT (NEUT) % 53.9 % (test code = 770-8) IMM GRAN % (test code 0.30 % = 3512998623) LYMPH % (test code = 29.5 % 736-9) MONO % (test code = 13.4 % 5905-5) EOS % (test code = 2.4 % 713-8) BASO % (test code = 0.5 % 706-2) GRAN MAT x10^3(ANC) 2.01 10*3/uL 1.99-6.95 (test code = 5960360237) IMM GRAN x10^3 (test <0.03 0.00-0.06 code = 7910240921) LYMPH x10^3 (test code 1.10 10*3/uL 1.09-3.23 = 731-0) MONO x10^3 (test code 0.50 10*3/uL 0.36-1.02 = 742-7) EOS x10^3 (test code = 0.09 10*3/uL 0.06-0.53 711-2) BASO x10^3 (test code <0.03 0.01-0.09 = 704-7) Lab Interpretation Abnormal (test code = 27092-8) [facility]"
--- NOTE | 2022-10-02 01:39 | ER ---
Nurse's Notes [facility] Name: Clayton Shetty Jr Age: 37 yrs Sex: Male : 1985 Arrival Date: 10/02/2022 Time: 00:24 Bed 5 Private MD: Diagnosis: Acute bronchitis, unspecified Presentation: 10/02 00:34 Chief complaint: Patient states: he started feeling some "chest tightness" at work bb tonight with congestion and he has had Covid twice the last time the end of July and "my stools are not firming up like I'd like". Coronavirus screen: At this time, the client does not indicate any symptoms associated with coronavirus-19. Ebola Screen: No symptoms or risks identified at this time. Initial Sepsis Screen: Does the patient meet any 2 criteria? No. Patient's initial sepsis screen is negative. Does the patient have a suspected source of infection? No. Patient's initial sepsis screen is negative. Risk Assessment: Do you want to hurt yourself or someone else? Patient reports no desire to harm self or others. Onset of symptoms was October 02, 2022. 00:34 Method Of Arrival: Ambulatory bb 00:34 Acuity: CEM 3 bb Historical: - Allergies: 00:36 No Known Allergies; bb - Home Meds: 00:36 none [Active]; bb - PMHx: 00:36 seasonal allergies; bb - PSHx: 00:36 Testicle removed; bb - Immunization history:: Pfizer x 4. - Social history:: Smoking status: Patient denies any tobacco usage or history of. Patient uses street drugs, marijuana, Patient/guardian denies using alcohol. Screenin:46 Abuse screen: Denies threats or abuse. Denies injuries from another. Nutritional tw5 screening: No deficits noted. Tuberculosis screening: No symptoms or risk factors identified. Fall Risk None identified. Assessment: 01:46 General: Appears in no apparent distress. Behavior is calm. General: Appears. Pain: tw5 Denies pain. Pain: Pain does not radiate. Cardiovascular: No deficits noted. Respiratory: No deficits noted. Vital Signs: 00:34 BP 155 / 87; Pulse 103; Resp 16 S; Temp 98.8(O); Pulse Ox 99% on R/A; Weight 86.18 kg bb (R); Height 5 ft. 9 in. (175.26 cm) (R); Pain 0/10; 01:46 BP 128 / 77; Pulse 99; Resp 18; Pulse Ox 100% on R/A; tw5 00:34 Body Mass Index 28.06 (86.18 kg, 175.26 cm) brando ED Course: 00:24 Patient arrived in ED. ja2 00:28 Nick Reeder MD is Attending Physician. kdr 00:36 Triage completed. bb 00:36 Arm band placed on Patient placed in an exam room, on a stretcher, on pulse oximetry. bb 01:44 Courtney Acevedo is Primary Nurse. tw5 01:46 Patient has correct armband on for positive identification. Pulse ox on. NIBP on. tw5 01:46 No provider procedures requiring assistance completed. Patient did not have IV access tw5 during this emergency room visit. Patient maintains SpO2 saturation greater than 95% on room air. Administered Medications: No medications were administered Medication: 01:46 VIS not applicable for this client. tw5 Outcome: 01:39 Discharge ordered by . kdr 01:46 Discharged to home ambulatory. tw5 01:46 Condition: good 01:46 Discharge instructions given to patient, Instructed on discharge instructions, follow up and referral plans. Demonstrated understanding of instructions, follow-up care, medications, Prescriptions given X 3. 01:48 Instructed on medication usage. tw5 01:48 Patient left the ED. tw5 Signatures: Nick Reeder MD MD kdr Ballard, Brenda, RN RN Gregoria Morales Tiffany tw5 Corrections: (The following items were deleted from the chart) 00:37 00:36 PMHx: Hypertensive disorder; brando michaels
--- NOTE | 2022-10-02 01:40 | EDPHYS ---
Physician Documentation [facility] Name: Clayton Shetty Jr Age: 37 yrs Sex: Male : 1985 Arrival Date: 10/02/2022 Time: 00:24 Bed 5 Private MD: ED Physician Nick Reeder HPI: 10/02 17:42 This 37 yrs old Black Male presents to ER via Ambulatory with complaints of Chest kdr Tightness, Congestion, Abnoraml Stools. 17:42 Patient states he has been feeling some chest tightness at work tonight. He has been kdr congested for the last couple of weeks. He has had COVID twice. Last time was seen in July. Also he has had some loose stools.. Onset: The symptoms/episode began/occurred gradually, 3 day(s) ago. Severity of symptoms: At their worst the symptoms were mild in the emergency department the symptoms are unchanged. The patient has experienced similar episodes in the past, chronically. Overall he has had chest congestion in the same discomfort for about a year and his had several physician visits. Historical: - Allergies: 00:36 No Known Allergies; bb - Home Meds: 00:36 none [Active]; bb - PMHx: 00:36 seasonal allergies; bb - PSHx: 00:36 Testicle removed; bb - Immunization history:: Pfizer x 4. - Social history:: Smoking status: Patient denies any tobacco usage or history of. Patient uses street drugs, marijuana, Patient/guardian denies using alcohol. ROS: 17:42 Constitutional: Negative for fever, chills, and weight loss, Eyes: Negative for injury, kdr pain, redness, and discharge, Neck: Negative for injury, pain, and swelling, Abdomen/GI: Negative for abdominal pain, nausea, vomiting, diarrhea, and constipation, Back: Negative for injury and pain, : Negative for injury, bleeding, discharge, and swelling, MS/Extremity: Negative for injury and deformity, Skin: Negative for injury, rash, and discoloration, Neuro: Negative for headache, weakness, numbness, tingling, and seizure activity. Psych: Negative for depression, anxiety, suicide ideation, homicidal ideation, and hallucinations, Allergy/Immunology: Negative for hives, rash, and allergies, Endocrine: Negative for neck swelling, polydipsia, polyuria, polyphagia, and marked weight changes, Hematologic/Lymphatic: Negative for swollen nodes, abnormal bleeding, and unusual bruising. 17:42 Cardiovascular: Positive for chest pain, Negative for chest pain. 17:42 Respiratory: Positive for cough, with no reported sputum, wheezing, Negative for dyspnea on exertion, hemoptysis, orthopnea, pleurisy. Exam: 17:42 Constitutional: This is a well developed, well nourished patient who is awake, alert, kdr and in no acute distress. Head/Face: Normocephalic, atraumatic. Eyes: Pupils equal round and reactive to light, extra-ocular motions intact. Lids and lashes normal. Conjunctiva and sclera are non-icteric and not injected. Cornea within normal limits. Periorbital areas with no swelling, redness, or edema. Neck: Trachea midline, no thyromegaly or masses palpated, and no cervical lymphadenopathy. Supple, full range of motion without nuchal rigidity, or vertebral point tenderness. No Meningismus. Chest/axilla: Normal chest wall appearance and motion. Nontender with no deformity. No lesions are appreciated. Cardiovascular: Regular rate and rhythm with a normal S1 and S2. No gallops, murmurs, or rubs. Normal PMI, no JVD. No pulse deficits. Respiratory: Lungs have equal breath sounds bilaterally, clear to auscultation and percussion. No rales, rhonchi or wheezes noted. No increased work of breathing, no retractions or nasal flaring. Abdomen/GI: Soft, non-tender, with normal bowel sounds. No distension or tympany. No guarding or rebound. No evidence of tenderness throughout. Back: No spinal tenderness. No costovertebral tenderness. Full range of motion. Skin: Warm, dry with normal turgor. Normal color with no rashes, no lesions, and no evidence of cellulitis. MS/ Extremity: Pulses equal, no cyanosis. Neurovascular intact. Full, normal range of motion. Neuro: Awake and alert, GCS 15, oriented to person, place, time, and situation. Cranial nerves II-XII grossly intact. Motor strength 5/5 in all extremities. Sensory grossly intact. Cerebellar exam normal. Normal gait. Psych: Awake, alert, with orientation to person, place and time. Behavior, mood, and affect are within normal limits. Vital Signs: 00:34 BP 155 / 87; Pulse 103; Resp 16 S; Temp 98.8(O); Pulse Ox 99% on R/A; Weight 86.18 kg bb (R); Height 5 ft. 9 in. (175.26 cm) (R); Pain 0/10; 01:46 BP 128 / 77; Pulse 99; Resp 18; Pulse Ox 100% on R/A; tw5 00:34 Body Mass Index 28.06 (86.18 kg, 175.26 cm) bb MDM: 01:39 Patient medically screened. kdr 17:42 Differential Diagnosis flu, Bronchitis, pneumonia, coronary artery disease. Data kdr reviewed: vital signs, nurses notes. Counseling: I had a detailed discussion with the patient and/or guardian regarding: the historical points, exam findings, and any diagnostic results supporting the discharge/admit diagnosis, lab results, radiology results. Administered Medications: No medications were administered Disposition Summary: 10/02/22 01:39 Discharge Ordered Location: Home kdr Problem: an ongoing problem kdr Symptoms: are unchanged kdr Condition: Stable kdr Diagnosis - Acute bronchitis, unspecified kdr Followup: kdr - With: Private Physician - When: 2 - 3 days - Reason: If symptoms return, Further diagnostic work-up, Recheck today's complaints, Continuance of care, Re-evaluation by your physician Discharge Instructions: - Discharge Summary Sheet kdr - Acute Bronchitis, Adult kdr Forms: - Medication Reconciliation Form kdr - Thank You Letter kdr Prescriptions: - Sudafed 12 Hour 120 mg Oral tablet extended release - take 1 tablet by ORAL route every 12 hours As needed; 20 tablet; Refills: 0, kdr Product Selection Permitted - Zyrtec 10 mg Oral Tablet - take 1 tablet by ORAL route once daily As needed; 20 tablet; Refills: 0, kdr Product Selection Permitted - Medrol (Lorenzo) 4 mg Oral Tablets, Dose Pack - take 1 tablet by ORAL route as directed - follow package instructions; 1 kdr packet; Refills: 0, Product Selection Permitted Signatures: Nick Reeder MD MD kdr Joanne Cortes RN RN bb Corrections: (The following items were deleted from the chart) 00:37 00:36 PMHx: Hypertensive disorder; bb bb
[2022-10-02 01:54] VITALS: TEMP 98.8
[2022-10-02 01:55] VITALS: BP 128/77; O2SAT 100
== END 2022-10-02 01:48 | disposition home or self-care (01) ==
LOC: ER 00:19
DX: J20.9 Acute bronchitis, unspecified (principal)
CPT/HCPCS: 99284

== ENCOUNTER 2022-10-31 12:32 | Emergency (ER) | payer OTHER ==
--- OUTSIDE RECORDS SUMMARY | 2022-10-31 12:35 | XMS REPORT | Continuity of Care Document ---
:1985 Author Organization [facility] t Address [address] [place] [address] Care Team Providers Name Role Phone SHIVA BROOKS Primary Care Physician Unavailable MARLYN MAHER Attending Clinician Unavailable Nika [employer] AGENTMarlyn Blanton Attending Clinician MARLYN MAHER Admitting Clinician Unavailable Problems This patient has no known problems. Allergies, Adverse Reactions, Alerts Allergy Allergy Status Severity Reaction(s) Onset Inactive Treating Comm ents Source Name Type Date Date Clinician NO KNOWN Drug Active Univers ALLERGIE Class ity of S [facility] Social History Social Habit Start Date Stop Date Quantity Comments Source Exposure to 2022-04-02 2022-04-12 Not sure [facility] SARS-CoV-2 (event) 00:00:00 19:31:00 Medica l Branch Sex Assigned At [birth year] [facility] 00:00:00 00:00:00 [facility] Smoking Status Start Date Stop Date Source Unknown if ever smoked [facility] Medications Ordered Filled Start Stop Current Ordering Indication Dosage Frequency Signature Comments Components Source Medication Medication Date Date Medication? Clinician (SIG) Name Name ketorolac 2021- No 30mg 30 mg, Unive rs (TORADOL) 04-13 Slow IV ity of injection 02:45: 01:43 Push, [place] 30 mg 00 :00 ONCE, 1 Medical dose, On Branch 04/12/22 at 2145, SEGUNDO ibuprofen Yes [id number] 800mg Take 1 Univers 800 mg 5-16 tablet by ity of tablet 00:00: mouth [place] 00 every 8 Medical (eight) Branch hours as needed for Pain (scale 4-6). methocarbam Yes [id number] 750mg Take 1 Univers oL 750 mg 5-16 tablet by ity o f tablet 00:00: mouth 4 [place] 00 (four) Medical times Branch daily as needed for Pain (scale 7-10). Vital Signs Vital Name Observation Time Observation Value Comments Source Systolic blood 2022-04-13 02:08:00 147 mm[Hg] [facility] Diastolic blood 2022-04-13 02:08:00 96 mm[Hg] [facility] Heart rate 2022-04-13 02:08:00 62 /min [facility] Respiratory rate 2022-04-13 02:08:00 16 /min [facility] Oxygen saturation in 2022-04-13 02:08:00 100 /min [facility] Arterial blood by [facility] Pulse oximetry [place] Body temperature 2022-04-13 00:35:00 36.78 Jessica [facility] Body height 2022-04-13 00:35:00 172.7 cm [facility] Body weight 2022-04-13 00:35:00 83.915 kg [facility] BMI 2022-04-13 00:35:00 28.13 kg/m2 [facility] Procedures Procedure Date / Time Performing Clinician Source Performed XR CHEST 1 VW 2022-04-13 01:02:00 Marlyn Maher [facility] TROPONIN I 2022-04-13 00:53:[facility] METABOLIC PANEL 2022-04-13 00:53:00 Marlyn Maher [facility] ([id number]) [facility] CBC WITH DIFF 2022-04-13 00:53:00 Marlyn Maher [facility] PROTHROMBIN TIME / INR 2022-04-13 00:53:00 Marlyn Maher [facility] URINALYSIS 2022-04-13 00:53:00 Marlyn Maher [facility] N-TERMINAL PRO-BNP 2022-04-13 00:53:00 [facility] Start End Encounter Admission Attending Care Care Encounter Source Date/Time Date/Time Type Type Clinicians Facility Department ID 2022-04-12 2022-04-12 Emergency X NIKA [facility] ERT [id number] Univers 19:25:00 21:10:00 MARLYN prietojeff [facility] 2022-04-12 2022-04-12 [facility] [id number] Univers 19:25:00 21:10:00 Marlyn MADISON [id number] i ty [facility] [id number] [facility] [id number] [place] [id number] [place] Results Test Description Test Time Test Comments Results Result Comments Source TROPONIN I 2022-04-13 01:26:29 Test Item Value Reference Range Interpretation Comme nts TROPONIN I (test code = 0.008 ng/mL See_Comment [Au tomated message] The [id number]) system which ge nerated this result tra [...] biotin. Lab Interpretation Normal (test code = 82329-8) [id number] 01:23:27 Test Item Value Reference Range Interpretation Comments NT-proBNP (test code 64 pg/mL See_Comment [Autom ated = [id number]) message] The system which generated this result transmitted reference range : <=125. The reference range was not used to interpret this result as normal/abnormal . OZZY (test code = OZZY) Biotin has been reported to cause a negative bias, interpret results relative to patient's use of biotin. Lab Interpretation Normal (test code = 69965-2) [facility]. METABOLIC PANEL ([id number])2022-04-13 01:14:46 Test Item Value Reference Range Interpretation Comments NA (test code = 136 mmol/L 135-145 7483139861) K (test code = 4.1 mmol/L 3.5-5.0 1697407275) CL (test code = 105 mmol/L 98-108 5971323115) CO2 TOTAL (test code 23 mmol/L 23-31 = 8485831246) AGAP (test code = 2-16 9288469321) BUN (test code = 18 mg/dL 7-23 0346000246) GLUCOSE (test code = 98 mg/dL 70-110 0503148627) CREATININE (test code 1.20 mg/dL 0.60-1.25 = 2086972601) TOTAL BILI (test code 0.6 mg/dL 0.1-1.1 = 3945483156) CALCIUM (test code = 9.3 mg/dL 8.6-10.6 6138468342) T PROTEIN (test code 7.3 g/dL 6.3-8.2 = 8589348437) ALBUMIN (test code = 4.7 g/dL 3.5-5.0 5026190978) ALK PHOS (test code = 46 U/L 34-122 0298476419) ALTv (test code = 19 U/L 5-50 1742-6) AST(SGOT) (test code 26 U/L 13-40 = 1471119685) eGFR (test code = mL/min/1.73m2 4725254517) OZZY (test code = OZZY) Association of [...] or urine or abnormalities in imaging tests). [facility] / [id number] 01:13:46 Test Item Value Reference Range Interpretation [...] tions. Lab Interpretation (test Normal code = 30873-3) [facility] [id number] 01:02:25 Test Item Value Reference Range Interpretation Comments WBC (test code = See_Comment L [Automated 2090-2) message] The sy stem which generated this result transmitted reference range : 4.20 - 10.70 10*3/?L. The reference range was not used to interpret this result as normal/abnormal . RBC (test code = See_Comment [Automated 669-8) message] The sy stem which generated this [...] RDW-SD (test code = 41.2 fL 38.5-51.6 60376-4) RDW-CV (test code = 13.1 % 12.1-15.4 788-0) PLT (test code = See_Comment [Automated 777-3) message] The sy stem which generated this result transmitted reference range : 150 - 328 10*3/ ?L. The reference r jordi was not used to interpret this result as normal/abnormal . MPV (test code = 10.2 fL 9.8-13.0 74070-8) NRBC/100 WBC (test See_Comment [Automat ed code = 9287012604) message] The system which generated this result transmitted reference range : 0.0 - 10.0 /100 WBCs. The refer ence range was not u sed to interpret th is result as normal/abnormal . NRBC x10^3 (test code <0.01 See_Comment [Auto mated = 6610575075) message] The s ystem which generated this result transmitted reference range : 10*3/?L. The reference range was not used to interpret this result as normal/abnormal . GRAN MAT (NEUT) % 53.9 % (test code = 770-8) IMM GRAN % (test code 0.30 % = 0410738725) LYMPH % (test code = 29.5 % 736-9) MONO % (test code = 13.4 % 5905-5) EOS % (test code = 2.4 % 713-8) BASO % (test code = 0.5 % 706-2) GRAN MAT x10^3(ANC) 2.01 10*3/uL 1.99-6.95 (test code = 3031494991) IMM GRAN x10^3 (test <0.03 0.00-0.06 code = 1897917601) LYMPH x10^3 (test code 1.10 10*3/uL 1.09-3.23 = 731-0) MONO x10^3 (test code 0.50 10*3/uL 0.36-1.02 = 742-7) EOS x10^3 (test code = 0.09 10*3/uL 0.06-0.53 711-2) BASO x10^3 (test code <0.03 0.01-0.09 = 704-7) Lab Interpretation Abnormal (test code = 64796-4) [facility]"
--- NOTE | 2022-10-31 14:16 | ER ---
Nurse's Notes [facility] Name: Clayton Shetty Jr Age: 37 yrs Sex: Male : 1985 Arrival Date: 10/31/2022 Time: 12:34 Bed DIS3 Private MD: Diagnosis: Cough;Viral infection, unspecified Presentation: 10/31 12:48 Chief complaint: Patient states: Pt states hacking cough since last night. Coronavirus kb3 screen: Vaccine status: Patient reports receiving the 2nd dose of the covid vaccine. Client denies travel out of the [place] in the last 14 days. Ebola Screen: Patient negative for fever greater than or equal to 101.5 degrees Fahrenheit, and additional compatible Ebola Virus Disease symptoms Patient denies exposure to infectious person. Patient denies travel to an Ebola-affected area in the 21 days before illness onset. Initial Sepsis Screen: Does the patient meet any 2 criteria? No. Patient's initial sepsis screen is negative. Does the patient have a suspected source of infection? No. Patient's initial sepsis screen is negative. Risk Assessment: Do you want to hurt yourself or someone else?. Onset of symptoms was October 30, 2022 at 19:00. 12:48 Method Of Arrival: Ambulatory kb3 12:48 Acuity: CEM 4 kb3 Triage Assessment: 12:50 General: Appears in no apparent distress. Behavior is calm, cooperative. Pain: Denies kb3 pain. Historical: - Allergies: 12:50 No Known Allergies; kb3 - Home Meds: 12:50 None [Active]; kb3 - PMHx: 12:50 seasonal allergies; kb3 - PSHx: 12:50 Testicle removed; kb3 - Immunization history:: Adult Immunizations up to date, Client reports receiving the 2nd dose of the Covid vaccine, Last tetanus immunization: up to date. - Social history:: Smoking status: Patient denies any tobacco usage or history of. Patient uses street drugs, marijuana. Screenin:52 Abuse screen: Denies threats or abuse. Denies injuries from another. Nutritional kb3 screening: No deficits noted. Tuberculosis screening: No symptoms or risk factors identified. Fall Risk None identified. Assessment: 12:52 General: see triage note. kb3 Vital Signs: 12:48 BP 151 / 89; Pulse 93; Resp 20; Temp 98.1; Pulse Ox 97% ; Weight 81.65 kg; Height 5 ft. kb3 9 in. (175.26 cm); Pain 0/10; 12:48 Body Mass Index 26.58 (81.65 kg, 175.26 cm) kb3 ED Course: 12:34 Patient arrived in ED. rg4 12:36 Rolan Phillips PA is PHCP. jmm 12:36 Noe Scales MD is Attending Physician. jmm 12:50 Triage completed. kb3 12:50 Arm band placed on right wrist. kb3 12:52 Patient has correct armband on for positive identification. kb3 12:52 No provider procedures requiring assistance completed. Patient did not have IV access kb3 during this emergency room visit. 13:15 Flu Sent. ld1 14:33 Sofie Ramírez, RN is Primary Nurse. iw Administered Medications: No medications were administered Medication: 12:52 VIS not applicable for this client. kb3 Outcome: 14:15 Discharge ordered by . roland 14:33 Patient left the ED. iw Signatures: Rolan Phillips PA PA Sofie Jesus, RN RN Irina Ludwig rg4 Brenda Carson RN RN ld1 Mago Mendez, RN RN kb3
--- NOTE | 2022-10-31 14:16 | EDPHYS ---
Physician Documentation [facility] Name: Clayton Shetty Jr Age: 37 yrs Sex: Male : 1985 Arrival Date: 10/31/2022 Time: 12:34 Bed DIS3 Private MD: MARLEY Physician Noe Sclaes HPI: 10/31 12:51 This 37 yrs old Black Male presents to ER via Ambulatory with complaints of Cough. m 12:51 The patient or guardian reports cough. Onset: The symptoms/episode began/occurred jmm gradually, 1 day(s) ago. Modifying factors: The symptoms are alleviated by nothing, the symptoms are aggravated by nothing. Associated signs and symptoms: Pertinent negatives: fever. It is unknown whether or not the patient has had similar symptoms in the past. Denies sore throat. Historical: - Allergies: 12:50 No Known Allergies; kb3 - Home Meds: 12:50 None [Active]; kb3 - PMHx: 12:50 seasonal allergies; kb3 - PSHx: 12:50 Testicle removed; kb3 - Immunization history:: Adult Immunizations up to date, Client reports receiving the 2nd dose of the Covid vaccine, Last tetanus immunization: up to date. - Social history:: Smoking status: Patient denies any tobacco usage or history of. Patient uses street drugs, marijuana. ROS: 12:51 Constitutional: Negative for fever, chills, and weight loss. jmm 12:51 ENT: Negative for sore throat. 12:51 Respiratory: Positive for cough. 12:51 All other systems are negative. Exam: 12:51 Constitutional: This is a well developed, well nourished patient who is awake, alert, jmm and in no acute distress. Head/Face: atraumatic. Eyes: EOMI, no conjunctival erythema appreciated ENT: Moist Mucus Membranes Neck: Trachea midline, Supple Chest/axilla: Normal chest wall appearance and motion. Cardiovascular: Regular rate and rhythm. No edema appreciated Respiratory: Normal respirations, no respiratory distress appreciated Abdomen/GI: Non distended Back: Normal ROM Skin: General appearance color normal MS/ Extremity: Moves all extremities, no obvious deformities appreciated, no edema noted to the lower extremities Neuro: Awake and alert Psych: Behavior is normal, Mood is normal, Patient is cooperative and pleasant Vital Signs: 12:48 BP 151 / 89; Pulse 93; Resp 20; Temp 98.1; Pulse Ox 97% ; Weight 81.65 kg; Height 5 ft. kb3 9 in. (175.26 cm); Pain 0/10; 12:48 Body Mass Index 26.58 (81.65 kg, 175.26 cm) kb3 MDM: 12:53 Patient medically screened. [facility] 14:15 Data reviewed: vital signs, nurses notes. Counseling: I had a detailed discussion with beata the patient and/or guardian regarding: the historical points, exam findings, and any diagnostic results supporting the discharge/admit diagnosis, the need for outpatient follow up, to return to the emergency department if symptoms worsen or persist or if there are any questions or concerns that arise at home. 10/31 12:47 Order name: Flu; Complete Time: 14:14 jm Administered Medications: No medications were administered Disposition Summary: 10/31/22 14:15 Discharge Ordered Location: Home [facility] Condition: Stable [facility] Diagnosis - Cough [facility] - Viral infection, unspecified [facility] Followup: [facility] - With: Private Physician - When: 2 - 3 days - Reason: Recheck today's complaints, Continuance of care, Re-evaluation by your physician Discharge Instructions: - Discharge Summary Sheet [facility] - Cough, Adult [facility] Forms: - Medication Reconciliation Form [facility] - Work release form [facility] - Thank You Letter [facility] - Antibiotic Education [facility] - Prescription Opioid Use [facility] Prescriptions: - albuterol sulfate 90 mcg/actuation Inhalation HFA aerosol inhaler - inhale 2 puff by INHALATION route every 4 hours; 1 Pump; Refills: 0, Product [facility] Selection Permitted - Bromfed DM 2-30-10 mg/5 mL Oral syrup - take 10 milliliter by ORAL route every 4 hours; 200 milliliter; Refills: 0, [facility] Product Selection Permitted Signatures: Dispatcher [employer] Rolan Glez PA PA jmm Bradberry, Kelly, RN RN kb3
[2022-10-31 14:42] VITALS: BP 151/89; TEMP 98.1; O2SAT 97
== END 2022-10-31 14:33 | disposition home or self-care (01) ==
LOC: ER 12:32
DX: B34.9 Viral infection, unspecified (principal)
CPT/HCPCS: 87804; 99282

== ENCOUNTER 2022-11-01 21:40 | Emergency (ER) | payer OTHER ==
--- OUTSIDE RECORDS SUMMARY | 2022-11-01 21:44 | XMS REPORT | Continuity of Care Document ---
:1985 Author Organization [facility] t Address [address] [place] [address] Care Team Providers Name Role Phone SHIVA BROOKS Primary Care Physician Unavailable MARLYN MAHER Attending Clinician Unavailable Nika SYSTEM[employer] TECHNICIANMarlyn Blanton Attending Clinician MARLYN MAHER Admitting Clinician Unavailable Problems This patient has no known problems. Allergies, Adverse Reactions, Alerts Allergy Allergy Status Severity Reaction(s) Onset Inactive Treating Comm ents Source Name Type Date Date Clinician NO KNOWN Drug Active [facility] ALLERGIE Class ity of [facility] Social History Social Habit Start Date Stop Date Quantity Comments Source Exposure to 2022-04-02 2022-04-12 Not sure [facility] SARS-CoV-2 (event) 00:00:00 19:31:00 Medica l Branch Sex Assigned At [birth year] [facility] 00:00:00 00:00:00 [facility] Smoking Status Start Date Stop Date Source Unknown if ever smoked [facility] Medications Ordered Filled Start Stop Current Ordering Indication Dosage Frequency Signature Comments Components Source Medication Medication Date Date Medication? Clinician (SIG) Name Name ketorolac No 30mg 30 mg, Unive rs (TORADOL) 04-13 Slow IV ity of injection 02:45: 01:43 Push, [place] 30 mg 00 :00 ONCE, 1 Medical dose, On Branch 04/12/22 at 2145, SEGUNDO ibuprofen Yes [id number] 800mg Take 1 Univers 800 mg 5-16 tablet by ity of tablet 00:00: mouth [place] 00 every 8 Medical (eight) Branch hours as needed for Pain (scale 4-6). methocarbam Yes [id number] 750mg Take 1 Univers oL 750 mg 5-16 tablet by ity o f tablet 00:00: mouth 4 [place] 00 (four) Medical times Branch daily as needed for Pain (scale 7-10). Vital Signs Vital Name Observation Time Observation Value Comments Source Systolic blood 2022-04-13 02:08:00 147 mm[Hg] [facility] Diastolic blood 2022-04-13 02:08:00 96 mm[Hg] [facility] Heart rate 2022-04-13 02:08:00 62 /min [facility] Respiratory rate 2022-04-13 02:08:00 16 /min [facility] Oxygen saturation in 2022-04-13 02:08:00 100 /min [facility] Arterial blood by [facility] Pulse oximetry [place] Body temperature 2022-04-13 00:35:00 36.78 Jessica [facility] Body height 2022-04-13 00:35:00 172.7 cm [facility] Body weight 2022-04-13 00:35:00 83.915 kg [facility] BMI 2022-04-13 00:35:00 28.13 kg/m2 [facility] Procedures Procedure Date / Time Performing Clinician Source Performed XR CHEST 1 VW 2022-04-13 01:02:00 Marlyn Maher [facility] TROPONIN I 2022-04-13 00:53[facility]OLIC PANEL 2022-04-13 00:53:00 Marlyn Maher [facility] ([id number]) [facility] CBC WITH DIFF 2022-04-13 00:53:00 Marlyn Maher [facility] PROTHROMBIN TIME / INR 2022-04-13 00:53:00 Marlyn Maher [facility] URINALYSIS 2022-04-13 00:53:00 Marlyn Maher [facility] N-TERMINAL PRO-BNP 2022-04-13 00:53:00 [facility] Start End Encounter Admission Attending Care Care Encounter Source Date/Time Date/Time Type Type Clinicians Facility Department ID 2022-04-12 2022-04-12 Emergency X [facility]IK[facility] ERT [id number] [facility] 19:25:00 21:10:00 MARLYN [facility]etoje[facility] 2022-04-12 2022-04-12 [facility] [id number] Univers 19:25:00 21:10:00 Marlyn HARDESTY [id number] i ty [facility] [id number] [facility] [id number] [place] [id number] [place] Results Test Description Test Time Test Comments Results Result Comments Source TROPONIN I 2022-04-13 01:26:29 Test Item Value Reference Range Interpretation Comme nts TROPONIN I (test code = 0.008 ng/mL See_Comment [Au tomated message] The [id number]) system which ge nerated this result tra [...] biotin. Lab Interpretation Normal (test code = 71152-5) [id number] 01:23:27 Test Item Value Reference Range Interpretation Comments NT-proBNP (test code 64 pg/mL See_Comment [Autom ated = [id number]) message] The system which generated this result transmitted reference range : <=125. The reference range was not used to interpret this result as normal/abnormal . OZZY (test code = OZZY) Biotin has been reported to cause a negative bias, interpret results relative to patient's use of biotin. Lab Interpretation Normal (test code = 48248-8) [facility] METABOLIC PANEL ([id number])2022-04-13 01:14:46 Test Item Value Reference Range Interpretation Comments NA (test code = 136 mmol/L 135-145 3215196360) K (test code = 4.1 mmol/L 3.5-5.0 4746961520) CL (test code = 105 mmol/L 98-108 1690918332) CO2 TOTAL (test code 23 mmol/L 23-31 = 8901769586) AGAP (test code = 2-16 2001048553) BUN (test code = 18 mg/dL 7-23 8940265604) GLUCOSE (test code = 98 mg/dL 70-110 4060002298) CREATININE (test code 1.20 mg/dL 0.60-1.25 = 6831274553) TOTAL BILI (test code 0.6 mg/dL 0.1-1.1 = 9983785202) CALCIUM (test code = 9.3 mg/dL 8.6-10.6 0760510306) T PROTEIN (test code 7.3 g/dL 6.3-8.2 = 8780495236) ALBUMIN (test code = 4.7 g/dL 3.5-5.0 9716290046) ALK PHOS (test code = 46 U/L 34-122 4472017919) ALTv (test code = 19 U/L 5-50 1742-6) AST(SGOT) (test code 26 U/L 13-40 = 8471018162) eGFR (test code = mL/min/1.73m2 5437453284) OZZY (test code = OZZY) Association of [...] or urine or abnormalities in imaging tests). [facility] [id number] 01:13:46 Test Item Value Reference Range Interpretation [...] tions. Lab Interpretation (test Normal code = 78327-1) [facility] [id number] 01:02:25 Test Item Value Reference Range Interpretation Comments WBC (test code = See_Comment L [Automated 5490-2) message] The sy stem which generated this result transmitted reference range : 4.20 - 10.70 10*3/?L. The reference range was not used to interpret this result as normal/abnormal . RBC (test code = See_Comment [Automated 449-8) message] The sy stem which generated this [...] RDW-SD (test code = 41.2 fL 38.5-51.6 25620-1) RDW-CV (test code = 13.1 % 12.1-15.4 788-0) PLT (test code = See_Comment [Automated 777-3) message] The sy stem which generated this result transmitted reference range : 150 - 328 10*3/ ?L. The reference r jordi was not used to interpret this result as normal/abnormal . MPV (test code = 10.2 fL 9.8-13.0 26299-0) NRBC/100 WBC (test See_Comment [Automat ed code = 7709280582) message] The system which generated this result transmitted reference range : 0.0 - 10.0 /100 WBCs. The refer ence range was not u sed to interpret th is result as normal/abnormal . NRBC x10^3 (test code <0.01 See_Comment [Auto mated = 9357039113) message] The s ystem which generated this result transmitted reference range : 10*3/?L. The reference range was not used to interpret this result as normal/abnormal . GRAN MAT (NEUT) % 53.9 % (test code = 770-8) IMM GRAN % (test code 0.30 % = 8915915139) LYMPH % (test code = 29.5 % 736-9) MONO % (test code = 13.4 % 5905-5) EOS % (test code = 2.4 % 713-8) BASO % (test code = 0.5 % 706-2) GRAN MAT x10^3(ANC) 2.01 10*3/uL 1.99-6.95 (test code = 4405326944) IMM GRAN x10^3 (test <0.03 0.00-0.06 code = 8252358430) LYMPH x10^3 (test code 1.10 10*3/uL 1.09-3.23 = 731-0) MONO x10^3 (test code 0.50 10*3/uL 0.36-1.02 = 742-7) EOS x10^3 (test code = 0.09 10*3/uL 0.06-0.53 711-2) BASO x10^3 (test code <0.03 0.01-0.09 = 704-7) Lab Interpretation Abnormal (test code = 94402-9) [facility]"
[2022-11-01 23:46] LABS: Absolute Lymphocytes (CBC) 0.9 K/uL (0.7-4.9); Hematocrit 38.6 % (39.6-49.0); Lymphocytes % 17.1 % (15.3-44.8); MCV 86.5 fL (80-100); MPV 7.6 fL (7.6-11.3); RBC Red Blood Cell Count 4.46 M/uL (4.33-5.43)
[2022-11-01 23:48] LABS: Protime INR 1.1
[2022-11-02 00:03] LABS: Magnesium 2.1 mg/dL (1.8-2.4); Potassium 3.8 mmol/L (3.5-5.1); Troponin High Sensitivity 7.5 pg/mL (<58.9)
--- NOTE | 2022-11-02 02:03 | EDPHYS ---
Physician Documentation [facility] Name: Clayton Shetty Jr Age: 37 yrs Sex: Male : 1985 Arrival Date: 11/01/2022 Time: 22:07 Bed 25 Private MD: ED Physician Zane Goff HPI: 11/01 23:30 This 37 yrs old Black Male presents to ER via Ambulatory with complaints of Shortness cp Of Breath. 23:30 The patient has shortness of breath while working out. Onset: The symptoms/episode cp began/occurred today. Duration: The symptoms are continuous, but are markedly better than the original presentation. Associated signs and symptoms: Pertinent positives: non-productive cough, Pertinent negatives: chest pain, productive cough, diaphoresis, fever, numbness in extremities, visual changes. Severity of symptoms: in the emergency department the symptoms have improved moderately. 23:30 Patient reports non-productive cough times 2 days. Checked pulse ox at home and it cp measured oxygen sats in the 80's. Historical: - Allergies: 22:25 No Known Allergies; kd3 - Home Meds: 22:25 Albuterol Inhl [Active]; kd3 - PMHx: 22:25 seasonal allergies; Hypertensive disorder; kd3 - PSHx: 22:25 Testicle removed; kd3 - Immunization history:: Adult Immunizations up to date. - Social history:: Smoking status: Patient denies any tobacco usage or history of. ROS: 23:35 Constitutional: Negative for body aches, chills, fever, poor PO intake. cp 23:35 Eyes: Negative for injury, pain, redness, and discharge. cp 23:35 ENT: Negative for drainage from ear(s), ear pain, sore throat, difficulty swallowing, difficulty handling secretions. 23:35 Cardiovascular: Negative for chest pain, edema, palpitations. 23:35 Respiratory: Positive for cough, with no reported sputum, shortness of breath, Negative for wheezing. 23:35 Abdomen/GI: Negative for abdominal pain, nausea, vomiting, and diarrhea. 23:35 Neuro: Negative for altered mental status, dizziness, headache, syncope, near syncope, weakness. 23:35 All other systems are negative. Exam: 23:40 Constitutional: The patient appears in no acute distress, alert, awake, comfortable, cp non-diaphoretic, non-toxic, well developed, well nourished. 23:40 Head/Face: Normocephalic, atraumatic. cp 23:40 Eyes: Periorbital structures: appear normal, Conjunctiva: normal, no exudate, no injection, Sclera: no appreciated abnormality, Lids and lashes: appear normal, bilaterally. 23:40 ENT: External ear(s): are unremarkable, Nose: is normal, Mouth: Lips: moist, Oral mucosa: pink and intact, moist, Posterior pharynx: Airway: no evidence of obstruction, patent, erythema, is not appreciated, exudate, is not appreciated. 23:40 Chest/axilla: Inspection: normal, Palpation: is normal, no crepitus, no tenderness. 23:40 Cardiovascular: Rate: tachycardic, Rhythm: regular, Edema: is not appreciated, JVD: is not appreciated. 23:40 Respiratory: the patient does not display signs of respiratory distress, Respirations: normal, no use of accessory muscles, no retractions, labored breathing, is not present, Breath sounds: are clear throughout, no decreased breath sounds, no stridor, no wheezing. 23:40 Abdomen/GI: Exam negative for discomfort, distension, guarding, Inspection: abdomen appears normal. 23:40 Back: pain, is absent, ROM is normal. cp 23:40 Neuro: Orientation: to person, place \T\ time. Mentation: is normal, Motor: moves all fours, strength is normal, Sensation: is normal. 23:42 ECG was reviewed by the Attending Physician. cp Vital Signs: 22:22 BP 160 / 95; Pulse 108; Resp 19; Temp 98.5(O); Pulse Ox 100% on R/A; Weight 81.65 kg; kd3 Height 5 ft. 9 in. (175.26 cm); 11/02 00:47 BP 143 / 93; Pulse 87; Resp 16 S; Pulse Ox 100% on R/A; bb 02:24 BP 159 / 97; Pulse 96; Resp 16 S; Temp 98.4(O); Pulse Ox 100% on R/A; bb 11/01 22:22 Body Mass Index 26.58 (81.65 kg, 175.26 cm) kd3 MDM: 11/01 23:13 Patient medically screened. cp 23:45 Differential diagnosis: Anemia Anxiety Reaction asthma, CHF exacerbation, Chronic cp Obstructive Pulmonary Disease pneumonia, Pneumothorax pulmonary edema, Pulmonary Embolism reactive airway disease, Unstable Angina. 11/02 02:02 Data reviewed: vital signs, nurses notes, lab test result(s), EKG, radiologic studies, cp plain films. 02:02 Test interpretation: by ED physician or midlevel provider: ECG, plain radiologic cp studies. Counseling: I had a detailed discussion with the patient and/or guardian regarding: the historical points, exam findings, and any diagnostic results supporting the discharge/admit diagnosis, the presence of at least one elevated blood pressure reading (>120/80) during this emergency department visit, lab results, radiology results, the need for outpatient follow up, a family practitioner, to return to the emergency department if symptoms worsen or persist or if there are any questions or concerns that arise at home. 11/01 23:13 Order name: Basic Metabolic Panel; Complete Time: 00:34 11/02 00:35 Interpretation: Normal except: GFR 74. 11/01 23:13 Order name: CBC with Diff; Complete Time: 00:34 11/02 00:35 Interpretation: Normal except: HGB 12.9; HCT 38.6; MN% 12.8. 11/01 23:13 Order name: D-Dimer; Complete Time: 00:34 11/01 23:13 Order name: Magnesium; Complete Time: 00:34 11/01 23:13 Order name: NT PRO-BNP; Complete Time: 00:34 11/01 23:13 Order name: PT-INR; Complete Time: 00:34 11/01 23:13 Order name: Troponin HS; Complete Time: 00:34 11/01 23:13 Order name: XRAY Chest (1 view) 11/01 23:13 Order name: EKG; Complete Time: 23:14 11/01 23:13 Order name: Cardiac monitoring; Complete Time: 00:14 11/01 23:13 Order name: EKG - Nurse/Tech; Complete Time: 00:14 11/01 23:13 Order name: IV Saline Lock; Complete Time: 00:14 11/01 23:13 Order name: Labs collected and sent; Complete Time: 00:15 11/02 00:42 Order name: COVID-19 SARS RT PCR; Complete Time: 02:01 cp 11/01 23:13 Order name: O2 Per Protocol; Complete Time: 00:15 cp 11/01 23:13 Order name: O2 Sat Monitoring; Complete Time: 00:15 cp 11/02 00:40 Order name: Vital Signs; Complete Time: 00:54 cp EC/05 23:42 Rate is 83 beats/min. Rhythm is regular. VA interval is normal. QRS interval is normal. cp QT interval is normal. T waves are Inverted in leads III, aVR. Interpreted by me. Reviewed by me. Administered Medications: No medications were administered Disposition: 11/02 07:03 Co-signature as Attending Physician, Zane Goff MD I agree with the assessment and rt plan of care. Disposition Summary: 11/02/22 02:02 Discharge Ordered Location: Home cp Problem: new cp Symptoms: have improved cp Condition: Stable cp Diagnosis - Shortness of breath cp - Hypertensive heart disease without heart failure cp Followup: cp - With: Private Physician - When: 2 - 3 days - Reason: Recheck today's complaints Discharge Instructions: - Discharge Summary Sheet cp - Hypertension, Adult cp - Shortness of Breath, Adult cp - Aspirin and Your Heart cp - Form - Blood Pressure Record Sheet cp - How to Take Your Blood Pressure cp Forms: - Medication Reconciliation Form cp - Thank You Letter cp - Antibiotic Education cp - Prescription Opioid Use cp Prescriptions: - albuterol sulfate 90 mcg/actuation Inhalation HFA aerosol inhaler - inhale 1 puff by INHALATION route every 4-6 hours; 1 Inhaler; Refills: 0, cp Product Selection Permitted Signatures: Dispatcher [employer] EDNoe Carlos PA PA cp Meghana Medeiros, AN RN kd3 Zane Goff MD MD rt
--- NOTE | 2022-11-02 02:03 | ER ---
Nurse's Notes [facility] Name: Clayton Shetty Jr Age: 37 yrs Sex: Male : 1985 Arrival Date: 11/01/2022 Time: 22:07 Bed 25 Private MD: Diagnosis: Shortness of breath;Hypertensive heart disease without heart failure Presentation: 11/01 22:22 Chief complaint: Patient states: I got out of the shower and i tried to work out but i kd3 stopped because i felt like it was hard to breath. I checked my O2 was like 95 and came back up to 97. Coronavirus screen: Vaccine status: Patient reports receiving the 2nd dose of the covid vaccine. Ebola Screen: No symptoms or risks identified at this time. Initial Sepsis Screen: Does the patient meet any 2 criteria? No. Patient's initial sepsis screen is negative. Does the patient have a suspected source of infection? No. Patient's initial sepsis screen is negative. Risk Assessment: Do you want to hurt yourself or someone else? Patient reports no desire to harm self or others. Onset of symptoms was November 01, 2022. 22:22 Method Of Arrival: Ambulatory kd3 22:22 Acuity: CEM 3 kd3 Triage Assessment: 22:25 General: Appears in no apparent distress. Behavior is calm, cooperative. Pain: Denies kd3 pain. Neuro: Level of Consciousness is awake, alert, obeys commands, Oriented to person, place, time, situation. Respiratory: Reports shortness of breath on exertion Airway is patent Trachea midline Respiratory effort is even, unlabored, Respiratory pattern is regular, symmetrical, Onset: The symptoms/episode began/occurred gradually, the patient has moderate shortness of breath. Historical: - Allergies: 22:25 No Known Allergies; kd3 - Home Meds: 22:25 Albuterol Inhl [Active]; kd3 - PMHx: 22:25 seasonal allergies; Hypertensive disorder; kd3 - PSHx: 22:25 Testicle removed; kd3 - Immunization history:: Adult Immunizations up to date. - Social history:: Smoking status: Patient denies any tobacco usage or history of. Screenin:27 Abuse screen: Denies threats or abuse. Denies injuries from another. Nutritional kd3 screening: No deficits noted. Tuberculosis screening: No symptoms or risk factors identified. Fall Risk None identified. Assessment: 11/02 00:12 General: Appears in no apparent distress. Behavior is calm, cooperative. Neuro: Level bb of Consciousness is awake, alert, obeys commands, Oriented to person, place, time, situation. Cardiovascular: Capillary refill < 3 seconds Patient's skin is warm and dry. Rhythm is sinus rhythm. Respiratory: Respiratory effort is even, unlabored, Breath sounds are clear bilaterally. GI: No signs and/or symptoms were reported involving the gastrointestinal system. Derm: Skin is dry, Skin is normal, Skin temperature is warm. Musculoskeletal: Circulation, motion, and sensation intact. 00:46 Reassessment: Patient is alert, oriented x 3, equal unlabored respirations, skin bb warm/dry/pink. awaiting diagnostic results. 02:24 Reassessment: Patient is alert, oriented x 3, equal unlabored respirations, skin bb warm/dry/pink. pt verbalized understanding of and agrees to plan of care discharge instructions given pt ambulated with steady gait to exit. Vital Signs: 11/01 22:22 BP 160 / 95; Pulse 108; Resp 19; Temp 98.5(O); Pulse Ox 100% on R/A; Weight 81.65 kg; kd3 Height 5 ft. 9 in. (175.26 cm); 1206 00:47 BP 143 / 93; Pulse 87; Resp 16 S; Pulse Ox 100% on R/A; bb 02:24 BP 159 / 97; Pulse 96; Resp 16 S; Temp 98.4(O); Pulse Ox 100% on R/A; bb 11/01 22:22 Body Mass Index 26.58 (81.65 kg, 175.26 cm) kd3 ED Course: 11/01 22:07 Patient arrived in ED. jj6 22:25 Triage completed. kd3 22:25 Arm band placed on right wrist. kd3 22:27 Patient has correct armband on for positive identification. kd3 22:27 No provider procedures requiring assistance completed. kd3 23:12 Noe Chavez PA is PHCP. cp 23:12 Zane Goff MD is Attending Physician. cp 23:30 Inserted saline lock: 20 gauge in right antecubital area, using aseptic technique. jb5 Blood collected. 23:34 XRAY Chest (1 view) In Process Unspecified. EDMS 11/02 00:12 Joanne Cortes, RN is Primary Nurse. bb 02:25 IV discontinued, intact, bleeding controlled, No redness/swelling at site. Pressure bb dressing applied. Administered Medications: No medications were administered Medication: 00:12 VIS not applicable for this client. bb Outcome: 02:02 Discharge ordered by . cp 02:25 Discharged to home ambulatory. bb 02:25 Condition: stable 02:25 Discharge instructions given to patient, Instructed on discharge instructions, follow up and referral plans. medication usage, Demonstrated understanding of instructions, follow-up care, medications, Prescriptions given X 1. 02:25 Patient left the ED. bb Signatures: Dispatcher [employer] [facility] Joanne Cortes, RN RN Noe Rader PA PA cp Broussard, Jennifer jb5 Iveth Newton [email or web address] Meghana Medeiros RN RN kd3
[2022-11-02 06:58] VITALS: O2SAT 100
[2022-11-02 07:00] VITALS: BP 159/97; TEMP 98.4
--- NOTE | 2022-11-02 08:35 | EKG ---
Test Date: 2022-11-01 Test Time: 23:36:31 Weights And Measures Inspector: FRANCES MEASUREMENT RESULTS: Intervals: Rate: 83 TX: 142 QRSD: 90 QT: 368 QTc: 432 Ashby: P: 67 TX: 142 QRS: 0 T: 16 INTERPRETIVE STATEMENTS: Normal sinus rhythm Moderate voltage criteria for LVH, may be normal variant Borderline ECG Compared to ECG 09/18/2022 17:33:49 Left ventricular hypertrophy now present Sinus tachycardia no longer present Electronically Signed On 11-02-22 08:34:27 SE[employer] P[employer]ER by Delio Vallejo
--- NOTE | 2022-11-02 17:58 | RAD REPORT ---
EXAM DESCRIPTION: Chest Single View CLINICAL HISTORY: 37 years Male SOB TECHNIQUE: One view of the chest. COMPARISON: No prior exams provided for comparison. FINDINGS: The lungs are clear without focal consolidation, effusion, or pneumothorax. The cardiomedi astinal silhouette and central pulmonary vasculature are normal. No acute osseous abnormalities. IMPRESSION: No acute cardiopulmonary abnormalities. Electronically signed by: Pauly Childs MD 11/02/2022 12:11 AM FURNITURE SALES ASSOCIATE Due to temporary technical issues with the PACS/Fluency reporting system, reports are being signed by the in house radiologists without review as a courtesy to insure prompt reporting. The interpreting radiologist is fully responsible for the content of the report.
== END 2022-11-02 02:25 | disposition home or self-care (01) ==
LOC: ER 21:40
DX: I11.9 Hypertensive heart disease without heart failure (principal); I10 Essential (primary) hypertension; Z20.822 Contact with and (suspected) exposure to COVID-19
CPT/HCPCS: 93005; 85025; 80048; 36415; 83735; 85610; 85379; 84484; 83880; 71045; 99284; U0003

== ENCOUNTER 2022-11-29 22:21 | Emergency (ER) | payer OTHER ==
[2022-11-30 01:21] LABS: Urine Blood Negative (Negative); Urine Glucose Negative (Negative); Urine Protein Negative (Negative); Urine Specific Gravity 1.025 (1.005-1.030); Urine pH 6.5 (5.0-7.0)
[2022-11-30 01:47] LABS: Urine Bacteria None Seen /HPF (<20); Urine Mucus Slight /HPF (None Seen); Urine RBC <5 /HPF (None Seen)
[2022-11-30 02:05] LABS: Absolute Lymphocytes (CBC) 1.1 K/uL (0.7-4.9); Hematocrit 37.1 % (39.6-49.0); Lymphocytes % 23.3 % (15.3-44.8); MPV 7.9 fL (7.6-11.3); RBC Red Blood Cell Count 4.32 M/uL (4.33-5.43)
[2022-11-30 02:30] LABS: Albumin 3.7 g/dL (3.4-5.0); Bilirubin Total 0.3 mg/dL (0.2-1.0); Potassium 3.7 mmol/L (3.5-5.1); Protein, Total 7.4 g/dL (6.4-8.2)
[2022-11-30] MEDS ORDERED: KETOROLAC 30 MG/ML INJ ONE (02:38)
--- NOTE | 2022-11-30 02:45 | ER ---
Nurse's Notes [facility] Name: Clayton Shetty Jr Age: 37 yrs Sex: Male : 1985 Arrival Date: 11/29/2022 Time: 22:25 Bed 24 Private MD: Diagnosis: Dorsalgia, unspecified Presentation: 11/29 22:31 Chief complaint: Patient states: "I noticed some pain in my upper left hand side vc1 towards the back and haven't been able to pass a stool in a week. I took some benefiber and went a little bit but then I had watery stools and now I'm not going again.". Coronavirus screen: Vaccine status: Patient reports receiving the 2nd dose of the covid vaccine. times 2 booster; Flexuspine At this time, the client does not indicate any symptoms associated with coronavirus-19. Ebola Screen: No symptoms or risks identified at this time. Risk Assessment: Do you want to hurt yourself or someone else? Patient reports no desire to harm self or others. Onset of symptoms is unknown. 22:31 Method Of Arrival: Ambulatory vc1 22:31 Acuity: CEM 3 vc1 Triage Assessment: 22:35 General: Appears in no apparent distress. comfortable, Behavior is calm, cooperative, vc1 appropriate for age. Pain: Complains of pain in posterior aspect of left lateral abdomen Pain does not radiate. Pain currently is 7 out of 10 on a pain scale. EENT: No deficits noted. No signs and/or symptoms were reported regarding the EENT system. Neuro: Level of Consciousness is awake, alert, obeys commands, Oriented to person, place, time, situation, Appropriate for age. Cardiovascular: No deficits noted. Respiratory: Airway is patent Respiratory effort is even, unlabored, Respiratory pattern is regular, symmetrical. GI: Reports constipation, diarrhea. : No deficits noted. No signs and/or symptoms were reported regarding the genitourinary system. Derm: No deficits noted. No signs and/or symptoms reported regarding the dermatologic system. Musculoskeletal: No deficits noted. No signs and/or symptoms reported regarding the musculoskeletal system. Historical: - Allergies: 22:33 No Known Allergies; vc1 - Home Meds: 22:33 olmesartan 5 mg oral tab [Active]; hydralazine 10 mg Oral tab [Active]; vc1 - PMHx: 22:33 Hypertensive disorder; seasonal allergies; vc1 - PSHx: 22:33 Testicle removed; vc1 - Immunization history:: Adult Immunizations up to date. - Social history:: Smoking status: unknown. Screenin:35 [facility] ED Fall Risk Assessment (Adult) History of falling in the last 3 months, vc1 including since admission No falls in past 3 months (0 pts) Confusion or Disorientation No (0 pts) Intoxicated or Sedated No (0 pts) Impaired Gait No (0 pts) Mobility Assist Device Used No (0 pt) Altered Elimination No (0 pt) Score/Fall Risk Level 0 - 2 = Low Risk Maintained a safe environment, Educated pt \\T\\ family on fall prevention, incl call for assistance when getting out of bed. Abuse screen: Denies threats or abuse. Nutritional screening: No deficits noted. Tuberculosis screening: No symptoms or risk factors identified. Assessment: 11/30 01:17 General: Appears in no apparent distress. uncomfortable, Behavior is calm, cooperative. bb Pain: Complains of pain in back. Neuro: Level of Consciousness is awake, alert, obeys commands, Oriented to person, place, time, situation. Cardiovascular: Capillary refill < 3 seconds Patient's skin is warm and dry. Respiratory: Airway is patent Respiratory effort is even, unlabored, Respiratory pattern is regular. GI: Bowel sounds present X 4 quads. Abd is soft X 4 quads. Derm: Skin is dry, Skin is normal, Skin temperature is warm. Musculoskeletal: Circulation, motion, and sensation intact. 03:06 Reassessment: Patient is alert, oriented x 3, equal unlabored respirations, skin bb warm/dry/pink. pt verbalized understanding of and agrees to plan of care discharge instructions given pt ambulated with steady gait to exit. Vital Signs: 11/29 22:31 Weight 75.75 kg; Height 5 ft. 9 in. (175.26 cm); Pain 7/10; vc1 22:37 BP 154 / 91; Pulse 97; Resp 16; Temp 98.2; Pulse Ox 97% ; vc1 11/30 01:16 BP 138 / 94; Pulse 87; Resp 16 S; Pulse Ox 99% on R/A; bb 03:07 BP 139 / 91; Pulse 78; Resp 16 S; Temp 98.1(O); Pulse Ox 99% on R/A; bb 11/29 22:31 Body Mass Index 24.66 (75.75 kg, 175.26 cm) vc1 ED Course: 11/29 22:25 Patient arrived in ED. [id number] 22:29 Noe Chavez PA is PHCP. cp 22:29 Noe Scales MD is Attending Physician. cp 22:33 Triage completed. vc1 22:36 Arm band placed on right wrist. vc1 11/30 00:14 CT Stone Protocol In Process Unspecified. EDMS 01:14 Initial lab(s) drawn, by me, sent to lab. Urine collected: clean catch specimen, clear. bb Inserted saline lock: 18 gauge in right antecubital area, using aseptic technique. Blood collected. 01:17 Patient has correct armband on for positive identification. Placed in gown. Bed in low bb position. Call light in reach. Side rails up X 1. Warm blanket given. 01:47 Lab(s) recollected, by ED staff, sent to lab. bb 03:00 Joanne Cortes, RN is Primary Nurse. bb 03:08 No provider procedures requiring assistance completed. IV discontinued, intact, bb bleeding controlled, No redness/swelling at site. Pressure dressing applied. Administered Medications: 02:45 Drug: Ketorolac 15 mg Route: IVP; Site: right antecubital; vc1 03:06 Follow up: Response: No adverse reaction bb Medication: 11/29 22:36 VIS not applicable for this client. vc1 Outcome: 11/30 02:44 Discharge ordered by . cp 03:08 Discharged to home ambulatory. bb 03:08 Condition: stable 03:08 Discharge instructions given to patient, Instructed on discharge instructions, follow up and referral plans. no driving heavy equipment, medication usage, Demonstrated understanding of instructions, follow-up care, medications, Prescriptions given X 2. 03:08 Patient left the ED. bb Signatures: Dispatcher [employer] EDND Joanne Cortes, RN RN Noe Rader PA PA cp Jeffries, Jennifer [id number] Gisel Hair RN RN vc1
--- NOTE | 2022-11-30 02:45 | EDPHYS ---
Physician Documentation [facility] Name: Clayton Shetty Jr Age: 37 yrs Sex: Male : 1985 Arrival Date: 11/29/2022 Time: 22:25 Bed 24 Private MD: ED Physician Noe Scales HPI: 11/29 22:40 This 37 yrs old Black Male presents to ER via Ambulatory with complaints of Abdominal cp Pain. 22:40 The patient complains of pain in the left flank and left lateral abdomen. The pain does cp not radiate. 22:40 Onset: The symptoms/episode began/occurred gradually, and became worse today. Modifying cp factors: the symptoms are aggravated by movement. 22:40 Associated signs and symptoms: Pertinent positives: constipation, Pertinent negatives: cp diarrhea, dysuria, fever, urinary frequency, hematuria, pain radiating to the lower extremities, vomiting. Severity of pain: in the emergency department the pain is unchanged despite home interventions. Historical: - Allergies: 22:33 No Known Allergies; vc1 - Home Meds: 22:33 olmesartan 5 mg oral tab [Active]; hydralazine 10 mg Oral tab [Active]; vc1 - PMHx: 22:33 Hypertensive disorder; seasonal allergies; vc1 - PSHx: 22:33 Testicle removed; vc1 - Immunization history:: Adult Immunizations up to date. - Social history:: Smoking status: unknown. ROS: 22:45 Constitutional: Negative for body aches, chills, fever, poor PO intake. cp 22:45 Cardiovascular: Negative for chest pain, edema, palpitations. cp 22:45 Respiratory: Negative for cough, shortness of breath, wheezing. 22:45 Back: Positive for flank pain, on the left. 22:45 Abdomen/GI: Positive for abdominal pain, of the left lateral abdomen, Negative for cp vomiting, diarrhea, constipation. 22:45 Eyes: Negative for injury, pain, redness, and discharge. cp 22:45 ENT: Negative for drainage from ear(s), ear pain, sore throat, difficulty swallowing, difficulty handling secretions. 22:45 : Negative for urinary symptoms, testicular pain 22:45 Skin: Negative for cellulitis, rash. 22:45 Neuro: Negative for altered mental status, dizziness, headache, numbness, weakness. 22:45 All other systems are negative. Exam: 22:50 Constitutional: The patient appears in no acute distress, alert, awake, non-toxic, well cp developed, well nourished. 22:50 Head/Face: Normocephalic, atraumatic. cp 22:50 Eyes: Periorbital structures: appear normal, Conjunctiva: normal, no exudate, no injection, Sclera: no appreciated abnormality, Lids and lashes: appear normal, bilaterally. 22:50 ENT: External ear(s): are unremarkable, Nose: is normal, Mouth: Lips: moist, Oral mucosa: moist, Posterior pharynx: is normal, airway is patent, no erythema, no exudate. 22:50 Chest/axilla: Inspection: normal. 22:50 Cardiovascular: Rate: normal, Rhythm: regular. 22:50 Respiratory: the patient does not display signs of respiratory distress, Respirations: normal, no use of accessory muscles, no retractions, labored breathing, is not present, Breath sounds: are clear throughout, no decreased breath sounds, no stridor, no wheezing. 22:50 Abdomen/GI: Inspection: abdomen appears normal, Bowel sounds: active, all quadrants, Palpation: soft, in all quadrants, mild abdominal tenderness, in the left lateral abdomen, rebound tenderness, is not appreciated. 22:50 Back: pain, that is mild, of the left mid back, ROM is normal. 22:50 Skin: cellulitis, is not appreciated, no rash present. 22:50 Neuro: Motor: moves all fours, strength is normal, Sensation: is normal, Gait: is steady, at a normal pace, without difficulty. Vital Signs: 22:31 Weight 75.75 kg; Height 5 ft. 9 in. (175.26 cm); Pain 7/10; vc1 22:37 BP 154 / 91; Pulse 97; Resp 16; Temp 98.2; Pulse Ox 97% ; vc1 11/30 01:16 BP 138 / 94; Pulse 87; Resp 16 S; Pulse Ox 99% on R/A; bb 03:07 BP 139 / 91; Pulse 78; Resp 16 S; Temp 98.1(O); Pulse Ox 99% on R/A; bb 11/29 22:31 Body Mass Index 24.66 (75.75 kg, 175.26 cm) vc1 MDM: 11/29 22:31 Patient medically screened. 11/30 02:42 Data reviewed: vital signs, nurses notes, lab test result(s), radiologic studies, CT cp scan. 02:42 Differential diagnosis: nephrolithiasis, pyelonephritis, UTI, muscle strain. cp Counseling: I had a detailed discussion with the patient and/or guardian regarding: the historical points, exam findings, and any diagnostic results supporting the discharge/admit diagnosis, lab results, radiology results, to return to the emergency department if symptoms worsen or persist or if there are any questions or concerns that arise at home. Response to treatment: the patient's symptoms have mildly improved after treatment, and as a result, I will discharge patient. 11/29 23:33 Order name: CBC with Diff; Complete Time: 02:26 11/30 02:26 Interpretation: Normal except: RBC 4.32; HGB 12.4; HCT 37.1; MN% 13.5. 11/29 23:33 Order name: CMP; Complete Time: 02:36 11/29 23:33 Order name: Lipase; Complete Time: 02:36 11/29 23:33 Order name: Urine Microscopic Only; Complete Time: 02:26 cp 11/29 23:33 Order name: CT Stone Protocol 11/30 01:21 Order name: Urine Dipstick-Ancillary; Complete Time: 01:46 EDMS 11/30 01:46 Interpretation: Reviewed. 11/29 23:33 Order name: IV Saline Lock; Complete Time: 01:19 cp 11/29 23:33 Order name: Labs collected and sent; Complete Time: 01:19 cp 11/29 23:33 Order name: Urine Dipstick-Ancillary (obtain specimen); Complete Time: 01:19 11/30 01:33 Order name: Labs - recollect needed: all labs; Complete Time: 01:47 mw2 Administered Medications: 02:45 Drug: Ketorolac 15 mg Route: IVP; Site: right antecubital; vc1 03:06 Follow up: Response: No adverse reaction bb Disposition Summary: 11/30/22 02:44 Discharge Ordered Location: Home cp Problem: new cp Symptoms: have improved cp Condition: Stable cp Diagnosis - Dorsalgia, unspecified cp Followup: cp - With: Private Physician - When: 2 - 3 days - Reason: Worsening of condition Discharge Instructions: - Discharge Summary Sheet cp - Acute Back Pain, Adult cp - Form - Excuse from Work, School, or Physical Activity cp Forms: - Work release form bb - Medication Reconciliation Form cp - Thank You Letter cp - Antibiotic Education cp - Prescription Opioid Use cp Prescriptions: - Cyclobenzaprine 10 mg Oral Tablet - take 1 tablet by ORAL route every 8 hours As needed; 20 tablet; Refills: 0, cp Product Selection Permitted - Diclofenac Sodium 75 mg Oral Tablet Sustained Release - take 1 tablet by ORAL route 2 times per day; 30 tablet; Refills: 0, Product cp Selection Permitted Signatures: Dispatcher [employer] Joanne Cunningham RN RN bb Noe Chavez PA PA cp Gatti, MyKena mw2 Gisel Hair RN RN vc1
[2022-11-30 03:33] VITALS: O2SAT 99
[2022-11-30 03:35] VITALS: BP 139/91; TEMP 98.1
--- NOTE | 2022-11-30 14:21 | RAD REPORT ---
EXAM DESCRIPTION: CT - Stone Protocol - 11/30/2022 6:43 am CLINICAL HISTORY: 37 years Male left flank pain TECHNIQUE: Contiguous axial images obtained through the abdomen and pelvis without IV contrast. Oneil nal and sagittal reformatted images provided. This CT exam was performed according to our departmental dose-optimization program, which includes on e or more of the following dose reduction techniques: automated exposure control, adjustment of the m A and/or kV according to patient size, and/or use of iterative reconstruction technique. COMPARISON: No prior exams provided for comparison. FINDINGS: There are no renal, ureteral, or bladder calculi. There is no hydronephrosis or perinephri c stranding on either side. Appendicolith without appendicitis. Mild colonic diffuse constipation without bowel inflammation, obs truction, free intraperitoneal air, or ascites. The lung bases, unenhanced liver, biliary tree, gallbladder, pancreas, spleen, adrenal glands, kidney s, urinary bladder, and osseous structures are normal. IMPRESSION: Mild colonic constipation. No other acute abdominal or pelvic findings. No urolithiasis or appendicitis. Electronically signed by: Pauly Childs MD 11/30/2022 12:23 AM GLOVE BOARDER Due to temporary technical issues with the PACS/Fluency reporting system, reports are being signed by the in house radiologists without review as a courtesy to insure prompt reporting. The interpreting radiologist is fully responsible for the content of the report.
== END 2022-11-30 03:08 | disposition home or self-care (01) ==
LOC: ER 22:21
DX: M54.9 Dorsalgia, unspecified (principal); R10.9 Unspecified abdominal pain; K59.00 Constipation, unspecified
CPT/HCPCS: 36415; 74176; 76377; 80053; 81003; 81015; 83690; 85025; 96374; 99284

== ENCOUNTER 2022-12-15 17:16 | Observation (INO) | payer OTHER ==
[2022-12-15 17:44] LABS: Absolute Lymphocytes (CBC) 1.2 K/uL (0.7-4.9); Hematocrit 37.7 % (39.6-49.0); MCV 84.9 fL (80-100); MPV 7.7 fL (7.6-11.3); RBC Red Blood Cell Count 4.45 M/uL (4.33-5.43)
[2022-12-15] MEDS ORDERED: NA CHLORIDE 0.9% 1,000 ML ONE ×3 (17:57→20:43)
[2022-12-15] MEDS ORDERED: KETOROLAC 30 MG/ML INJ ONE (17:57)
[2022-12-15 18:07] LABS: Albumin 3.9 g/dL (3.4-5.0); Bilirubin Total 0.8 mg/dL (0.2-1.0); Protein, Total 7.3 g/dL (6.4-8.2)
[2022-12-15 18:09] LABS: Potassium 2.9 mmol/L (3.5-5.1)
[2022-12-15] MEDS ORDERED: POTASSIUM CL SA 10 MEQ TAB PO ONE (18:24)
--- NOTE | 2022-12-15 18:24 | RAD REPORT ---
EXAM DESCRIPTION: US - Abdomen Exam Limited - 12/15/2022 5:52 pm CLINICAL HISTORY: Abdominal pain. COMPARISON: None. FINDINGS: The gallbladder wall is not thickened. A gallstone is not seen. The biliary tree is normal caliber. IMPRESSION: Unremarkable gallbladder ultrasound.
[2022-12-15] MEDS ORDERED: ONDANSETRON 4 MG/2 ML VIAL ONE (18:53)
[2022-12-15] MEDS ORDERED: FENTANYL CITR 100 MCG/2 ML ONE (18:53)
--- NOTE | 2022-12-15 19:20 | RAD REPORT ---
EXAM DESCRIPTION: CT - Abdomen Pelvis W Contrast - 12/15/2022 6:32 pm CLINICAL HISTORY: Abdominal pain COMPARISON: November 30, 2022 TECHNIQUE: Computed axial tomography of the abdomen pelvis was obtained. 100 cc Isovue-300 was admin istered intravenously. Oral contrast was not requested which limits evaluation of bowel and appendix All CT scans are performed using dose optimization technique as appropriate and may include automated exposure control or mA/KV adjustment according to patient size. FINDINGS: The liver, spleen, pancreas, adrenal and kidneys appear unremarkable. There is no evidence of diverticulitis. 7 mm appendicolith is present within the base of appendix. The appendix is borderline dilated. There is no stranding within the adjacent fat. IMPRESSION: 7 millimeter appendicolith with borderline distention of the appendix. This is equivocal for early appendicitis and should be correlated clinically
--- NOTE | 2022-12-15 19:34 | EDPHYS ---
Physician Documentation [facility] Name: Clayton Shetty Jr Age: 37 yrs Sex: Male : 1985 Arrival Date: 12/15/2022 Time: 17:20 Bed 11 Private MD: ED Physician Nick Reeder HPI: 12/15 19:24 This 37 yrs old Black Male presents to ER via EMS with complaints of Abdominal Pain. kb 19:24 The patient presents with abdominal pain in the right upper quadrant, right lower kb quadrant. Onset: The symptoms/episode began/occurred today. The symptoms do not radiate. Associated signs and symptoms: none. The symptoms are described as constant. Modifying factors: The symptoms are alleviated by nothing, the symptoms are aggravated by movement, pressure. Severity of pain: At its worst the pain was moderate in the emergency department the pain is unchanged. The patient has not experienced similar symptoms in the past. The patient has not recently seen a physician. 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 Denies n/v/d/f/c.. Historical: - Allergies: 17:26 No Known Allergies; iw - Home Meds: 17:26 olmesartan 5 mg Oral tab [Active]; Hydrochlorothiazide Oral [Active]; iw - PMHx: 17:26 Hypertensive disorder; seasonal allergies; iw - PSHx: 17:26 Testicle removed; iw - Social history:: Smoking status: Patient denies any tobacco usage or history of. ROS: 19:24 Constitutional: Negative for fever, chills, and weight loss. kb 19:24 Abdomen/GI: Positive for abdominal pain, Negative for nausea, vomiting, and diarrhea. 19:24 All other systems are negative. Exam: 19:24 Constitutional: This is a well developed, well nourished patient who is awake, alert, kb and in no acute distress. Head/Face: Normocephalic, atraumatic. ENT: Moist Mucous membranes Cardiovascular: Regular rate and rhythm with a normal S1 and S2. No gallops, murmurs, or rubs. No pulse deficits. Respiratory: Respirations even and unlabored. No increased work of breathing. Talking in full sentences Skin: Warm, dry with normal turgor. Normal color. MS/ Extremity: Pulses equal, no cyanosis. Neurovascular intact. Full, normal range of motion. Neuro: Awake and alert, GCS 15, oriented to person, place, time, and situation. Moves all extremities. Normal gait. Psych: Awake, alert, with orientation to person, place and time. Behavior, mood, and affect are within normal limits. 19:24 Abdomen/GI: Inspection: abdomen appears normal, Bowel sounds: normal, Palpation: soft, in all quadrants, moderate abdominal tenderness, in the right lower quadrant and left lower quadrant. Vital Signs: 17:24 BP 99 / 56; Pulse 84; Resp 16; Temp 97.0; Pulse Ox 100% on R/A; Weight 76.2 kg; Height iw 5 ft. 9 in. (175.26 cm); Pain 10/10; 18:00 BP 115 / 73; Pulse 93; Resp 16; Pulse Ox 99% on R/A; eh3 18:44 BP 126 / 85; Pulse 88; Resp 16; Pulse Ox 100% on R/A; eh3 17:24 Body Mass Index 24.81 (76.20 kg, 175.26 cm) iw MDM: 17:20 Patient medically screened. kb 19:23 Differential diagnosis: appendicitis, cholecystitis, gastritis, gastroesophageal reflux kb disease, non-specific abd pain. Data reviewed: vital signs, nurses notes. Historians other than the Patient: EMS: [facility]. 19:29 Consideration of Admission/Observation Patient was admitted/placed on observation. kb Management of patient was discussed with the following: Hospitalist: AUNG Redmond accepts admission under Dr Angulo. Welding Estimator: Dr Henry consulted. Wants pt admitted under hospitalist, CBC repeated in the morning, NPO after midnight, hold antibiotics for now. I considered the following discharge prescriptions or medication management in the emergency department Antibiotics: At this time antibiotics are not recommended. Counseling: I had a detailed discussion with the patient and/or guardian regarding: the historical points, exam findings, and any diagnostic results supporting the discharge/admit diagnosis, lab results, radiology results, the need for further work-up and treatment in the hospital. 12/15 17:21 Order name: CBC with Diff; Complete Time: 17:52 kb 12/15 17:21 Order name: CMP; Complete Time: 18:10 kb 12/15 17:21 Order name: Lipase; Complete Time: 18:10 kb 12/15 18:49 Order name: CREATININE WHOLE BLOOD; Complete Time: 18:55 EDMS 12/15 19:33 Order name: SARS RAPID kb 12/15 20:31 Order name: Magnesium la1 12/15 17:21 Order name: Abdomen Limited US; Complete Time: 18:28 kb 12/15 17:53 Order name: CT Abd/Pelvis - IV Contrast Only; Complete Time: 19:22 kb 12/15 17:21 Order name: IV Saline Lock; Complete Time: 17:37 kb 12/15 17:21 Order name: Labs collected and sent; Complete Time: 17:37 kb Administered Medications: 18:00 Drug: NS 0.9% 1000 ml Route: IV; Rate: 1000 ml; Site: left antecubital; 3 19:30 Follow up: IV Status: Completed infusion; IV Intake: 1000ml eh3 18:00 Drug: Ketorolac 15 mg Route: IVP; Site: left antecubital; eh3 18:57 Follow up: Response: Pain is unchanged, physician notified 3 18:43 Drug: Potassium Chloride 40 mEq Route: PO; eh3 21:00 Follow up: Response: No adverse reaction eh3 18:56 Drug: fentaNYL (PF) 50 mcg Route: IVP; Site: left antecubital; eh3 20:00 Follow up: Response: Pain is decreased eh3 18:56 Drug: Zofran (Ondansetron) 4 mg Route: IVP; Site: left antecubital; eh3 20:00 Follow up: Response: No adverse reaction eh3 21:07 Drug: morphine 4 mg Route: IVP; Infused Over: 4 mins; Site: left antecubital; eh3 21:07 Follow up: Response: Pain is decreased; RASS: Alert and Calm (0) eh3 Disposition: 12/16 12:34 Co-signature as Attending Physician, Nick Reeder MD I agree with the assessment and kdr plan of care. Disposition Summary: 12/15/22 19:34 Hospitalization Ordered Hospitalization Status: Observation kb Provider: Billy Angulo Location: Telemetry/MedSurg (observation) kb Condition: Stable kb Problem: new kb Symptoms: are unchanged kb Bed/Room Type: Standard Room Assignment: 409(12/15/22 20:45) eb1 Diagnosis - Unspecified acute appendicitis kb Forms: - Medication Reconciliation Form kb - SBAR form kb Signatures: Dispatcher [employer] EDAlisia Handley, WEIGHTS AND MEASURES SEALER-C WEIGHTS AND MEASURES SEALER-Ckb Nick Reeder MD MD kdr Williams, Irene, RN RN Chris Nixon, WEIGHTS AND MEASURES SEALER-C WEIGHTS AND MEASURES SEALER-ClaJo-Ann Rios RN RN eb1 Bella Daniel RN RN eh3 Corrections: (The following items were deleted from the chart) 12/15 20:45 19:34 kb [email or web address]
--- NOTE | 2022-12-15 19:34 | ER ---
Nurse's Notes [facility] Name: Clayton Shetty Jr Age: 37 yrs Sex: Male : 1985 Arrival Date: 12/15/2022 Time: 17:20 Bed 11 Private MD: Diagnosis: Unspecified acute appendicitis Presentation: 12/15 17:24 Chief complaint: Patient states: stomach started hurting at work, ate some fruit and iw [employer] and pain got worse , he was fasting for two days before that. Coronavirus screen: At this time, the client does not indicate any symptoms associated with coronavirus-19. Ebola Screen: Patient negative for fever greater than or equal to 101.5 degrees Fahrenheit, and additional compatible Ebola Virus Disease symptoms Patient denies exposure to infectious person. Patient denies travel to an Ebola-affected area in the 21 days before illness onset. No symptoms or risks identified at this time. Initial Sepsis Screen: Does the patient meet any 2 criteria? No. Patient's initial sepsis screen is negative. Does the patient have a suspected source of infection? No. Patient's initial sepsis screen is negative. Risk Assessment: Do you want to hurt yourself or someone else? Patient reports no desire to harm self or others. Onset of symptoms was December 15, 2022. 17:24 Method Of Arrival: EMS: [facility] 17:24 Acuity: CEM 3 iw Historical: - Allergies: 17:26 No Known Allergies; iw - Home Meds: 17:26 olmesartan 5 mg Oral tab [Active]; Hydrochlorothiazide Oral [Active]; iw - PMHx: 17:26 Hypertensive disorder; seasonal allergies; iw - PSHx: 17:26 Testicle removed; iw - Social history:: Smoking status: Patient denies any tobacco usage or history of. Screenin:45 [facility] ED Fall Risk Assessment (Adult) History of falling in the last 3 months, eh3 including since admission No falls in past 3 months (0 pts) Confusion or Disorientation No (0 pts) Intoxicated or Sedated No (0 pts) Impaired Gait No (0 pts) Mobility Assist Device Used No (0 pt) Altered Elimination No (0 pt) Score/Fall Risk Level 0 - 2 = Low Risk. Abuse screen: Denies threats or abuse. Denies injuries from another. Nutritional screening: No deficits noted. Tuberculosis screening: No symptoms or risk factors identified. Assessment: 17:45 General: Appears in no apparent distress. uncomfortable, Behavior is calm, cooperative, eh3 appropriate for age. Pain: Complains of pain in umbilical area and suprapubic area Pain does not radiate. Pain currently is 9 out of 10 on a pain scale. Quality of pain is described as burning. Neuro: Level of Consciousness is awake, alert, obeys commands, Oriented to person, place, time, situation. Cardiovascular: Capillary refill < 3 seconds Patient's skin is warm and dry. Respiratory: Airway is patent Respiratory effort is even, unlabored, Respiratory pattern is regular, symmetrical. GI: Abdomen is flat, non-distended, Bowel sounds present X 4 quads. Abd is soft X 4 quads Abdomen is tender to palpation in umbilical area and suprapubic area. : No signs and/or symptoms were reported regarding the genitourinary system. EENT: No signs and/or symptoms were reported regarding the EENT system. Derm: No signs and/or symptoms reported regarding the dermatologic system. Skin is healthy with good turgor, Skin is pink, warm \\T\\ dry. Musculoskeletal: No signs and/or symptoms reported regarding the musculoskeletal system. Circulation, motion, and sensation intact. Range of motion: intact in all extremities. 18:44 Reassessment: Patient and/or family updated on plan of care and expected duration. Pain eh3 level reassessed. Patient is alert, oriented x 3, equal unlabored respirations, skin warm/dry/pink. 20:05 General: Reports " I am still having pain." Patient is able to ambulate to the restroom eh3 without difficulty. Vital Signs: 17:24 BP 99 / 56; Pulse 84; Resp 16; Temp 97.0; Pulse Ox 100% on R/A; Weight 76.2 kg; Height iw 5 ft. 9 in. (175.26 cm); Pain 10/10; 18:00 BP 115 / 73; Pulse 93; Resp 16; Pulse Ox 99% on R/A; eh3 18:44 BP 126 / 85; Pulse 88; Resp 16; Pulse Ox 100% on R/A; eh3 17:24 Body Mass Index 24.81 (76.20 kg, 175.26 cm) iw ED Course: 17:20 Patient arrived in ED. iw 17:20 Al[facility] Mun[facility]C [facility]. kb 17:20 Nick Reeder MD is Attending Physician. kb 17:26 Triage completed. iw 17:27 Arm band placed on. iw 17:37 Bella Daniel, RN is Primary Nurse. eh3 17:40 CBC with Diff Sent. bc6 17:40 CMP Sent. bc6 17:40 Lipase Sent. bc6 17:40 Initial lab(s) drawn, by me, sent to lab. Inserted saline lock: 20 gauge in left bc6 forearm, using aseptic technique. 17:45 Patient has correct armband on for positive identification. Bed in low position. Call eh3 light in reach. Side rails up X2. Pulse ox on. NIBP on. Door closed. Noise minimized. Lights dimmed. Warm blanket given. 17:54 Abdomen Limited US In Process Unspecified. EDMS 18:33 CT Abd/Pelvis - IV Contrast Only In Process Unspecified. EDMS 19:34 Joe Angulo MD is Hospitalizing Provider. kb 19:34 Billy Angulo MD is Hospitalizing Provider. kb 20:09 SARS RAPID Sent. eh3 20:56 No provider procedures requiring assistance completed. Patient admitted, IV remains in tw5 place. Administered Medications: 18:00 Drug: NS 0.9% 1000 ml Route: IV; Rate: 1000 ml; Site: left antecubital; eh3 19:30 Follow up: IV Status: Completed infusion; IV Intake: 1000ml eh3 18:00 Drug: Ketorolac 15 mg Route: IVP; Site: left antecubital; eh3 18:57 Follow up: Response: Pain is unchanged, physician notified eh3 18:43 Drug: Potassium Chloride 40 mEq Route: PO; eh3 21:00 Follow up: Response: No adverse reaction eh3 18:56 Drug: fentaNYL (PF) 50 mcg Route: IVP; Site: left antecubital; eh3 20:00 Follow up: Response: Pain is decreased eh3 18:56 Drug: Zofran (Ondansetron) 4 mg Route: IVP; Site: left antecubital; eh3 20:00 Follow up: Response: No adverse reaction eh3 21:07 Drug: morphine 4 mg Route: IVP; Infused Over: 4 mins; Site: left antecubital; eh3 21:07 Follow up: Response: Pain is decreased; RASS: Alert and Calm (0) eh3 Medication: 20:57 VIS not applicable for this client. tw5 Intake: 19:30 IV: 1000ml; Total: 1000ml. eh3 Outcome: 19:34 Decision to Hospitalize by Provider. kb 20:57 Admitted to Med/surg Report called to Med/surg nurse tw5 20:57 Condition: stable 20:57 Instructed on the need for admit. 21:08 Patient left the ED. 3 Signatures: Dispatcher [employer] EDMS Alisia Munoz, DIRECTOR OF CONTENT MARKETING-C DIRECTOR OF CONTENT MARKETING-CkSofie Brady, RN RN iw Courtney Acevedo tw5 Bella Daniel, RN RN 3 Cele Plata 6 Corrections: (The following items were deleted from the chart) 17:26 17:24 Pulse 84bpm; Resp 16bpm; Pulse Ox 100% RA; Temp 97.0F; iw iw 17:27 17:24 Pulse 84bpm; Resp 16bpm; Pulse Ox 100% RA; Temp 97.0F; 76.2 kg; Height 5 ft. 9 iw in.; BMI: 24.8; Pain 10/10; iw
[2022-12-15] MEDS ORDERED: HYDROCODONE/APAP 10/325 TAB ONE (20:26)
[2022-12-15] MEDS ORDERED: TDAP (DIPHTH,PERTUSS(ACELL),TET VAC) 0.5 ML VIAL IMVAC ONE (20:26)
[2022-12-15] MEDS ORDERED: NICOTINE 21 MG/PAT TD ONE (20:26)
[2022-12-15 20:38] LABS: SARS-CoV-2 Antigen Rapid Res Negative (Negative)
--- NOTE | 2022-12-15 20:51 | P.HP ---
Certification for Inpatient Patient admitted to: Observation Patient will require the following post-hospital care: None Practitioner: I am a practitioner with admitting privileges, knowledge of patient current condition, hospital course, and medical plan of care. Services: Services provided to patient in accordance with Admission requirements found in Title 42 Section 412.3 of the Code of Federal Regulations Patient History Date of Service: 12/15/22 Reason for admission: Abdominal tenderness History of Present Illness: 37-year-old male with history of hypertension presents the emergency department with chief complaint of abdominal pain. He reports the pain began today is located in the periumbilical area with associated nausea. He is evaluated in the emergency department his labs were significant for white blood cell count 8.[address] abdomen pelvis with IV contrast was performed which revealed 7 mm appendicolith with borderline distention of the appendix. This is equivocal for an early appendicitis and should be correlated clinically. ED provider discussed case with general surgery who recommends patient be admitted to the hospital service, kept n.p.o. with current pain medications, hold off on IV antibiotics, repeat CBC/abdominal exams. Will admit for further valuation and management of abdominal tenderness/rule out acute appendicitis. - Past Medical/Surgical History -: Hypertension -: Testicle removed Psychosocial/ Personal History: Patient lives at home with family - Family History Father -: Heart disease, Stroke Mother -: Heart disease - Social History Smoking Status: Never smoker Alcohol use: No CD- Drugs: No Caffeine use: Yes Place of Residence: Home Review of Systems 10-point ROS is otherwise unremarkable Gastrointestinal: Nausea, Abdominal Pain Physical Examination - Physical Exam General: Alert, In no apparent distress, Oriented x3 HEENT: Atraumatic, PERRLA, Mucous membr. moist/pink, EOMI, Sclerae nonicteric Neck: Supple, 2+ carotid pulse no bruit, No LAD, Without JVD or thyroid abnormality Respiratory: Clear to auscultation bilaterally, Normal air movement Cardiovascular: Regular rate/rhythm, Normal S1 S2 Capillary refill: <2 Seconds Gastrointestinal: Normal bowel sounds, No masses, No rebound, No guarding, Tenderness (Mild right lower quadrant tenderness) Musculoskeletal: No tenderness Integumentary: No rashes Neurological: Normal speech, Normal strength at 5/5 x4 extr, Normal tone, Normal affect - Studies Laboratory Data (last 24 hrs) 12/15/22 17:35: Sodium 133 L, Potassium 2.9 L*, BUN 9, Creatinine 1.32 H, Glucose 108 H, Total Bilirubin 0.8, AST 19, ALT 18, Alkaline Phosphatase 44 L, Lipase 99 12/15/22 17:35: WBC 8.60, Hgb 12.7 L, Hct 37.7 L, Plt Count 260 Assessment and Plan - Plan Assessment: Abdominal tenderness/rule out acute appendicitis Hypertension Hypokalemia Plan: Abdominal tenderness/rule out acute appendicitis Surgical consult, n.p.o. for midnight, as needed pain medication/antiemetics. Serial abdominal exams currently with mild to moderate right lower quadrant tenderness. Surgery requested hold antibiotics tonight. Hypertension Hold oral medications, blood pressure within normal at this time, restart when appropriate. Hypokalemia Replaced in ED, mag level ordered and pending. Protocol placed. DVT PPX: SCD Code status: Full Discharge Plan: Home Plan to discharge in: 24 Hours - Advance Directives Does patient have a Living Will: No Does patient have a Durable POA for Healthcare: No - Code Status/Comfort Care Code Status Assessed: Yes (Full code) Critical Care: No Time Spent Managing Pts Care (In Minutes): 55
[2022-12-15] MEDS ORDERED: MORPHINE 4 MG/ML SYR ONE (21:04)
[2022-12-15 21:34] VITALS: BMI 24.4
[2022-12-15] MEDS ORDERED: MORPHINE 2 MG/ML SYR IV PRN (21:36)
[2022-12-15] MEDS ORDERED: ONDANSETRON 4 MG/2 ML VIAL IV PRN (21:36)
[2022-12-15] MEDS ORDERED: HYDROMORPHONE HCL 0.5 MG/0.5 ML INJ IV PRN (22:20)
[2022-12-15] MEDS ORDERED: Ringers Lactate 1,000 ML IV ONE (22:20)
[2022-12-15] MEDS: Ringers Lactate 1,000 ML IV SCH (22:30)
[2022-12-16] MEDS: KCL 20 MEQ/100 mL IVPB 20 MEQ/100 ML BAG IV SCH ×2 (00:43→03:53)
[2022-12-16 05:04] LABS: Absolute Lymphocytes (CBC) 0.7 K/uL (0.7-4.9); Hematocrit 35.6 % (39.6-49.0); Lymphocytes % 6.4 % (15.3-44.8); MCV 85.6 fL (80-100); MPV 7.7 fL (7.6-11.3); RBC Red Blood Cell Count 4.16 M/uL (4.33-5.43)
[2022-12-16 05:19] LABS: Magnesium 2.4 mg/dL (1.6-2.4); Potassium 4.1 mmol/L (3.5-5.1)
[2022-12-16] MEDS ORDERED: MIDAZOLAM HCL 2 MG/2 ML INJ ONE (07:44)
[2022-12-16] MEDS ORDERED: propofoL 200 MG/20 ML VIAL IV ONE (07:44)
[2022-12-16] MEDS ORDERED: KETOROLAC 30 MG/ML INJ ONE (07:45)
[2022-12-16] MEDS ORDERED: ROCURONIUM 50 MG/5 ML VIAL IV ONE (07:45)
[2022-12-16] MEDS ORDERED: ONDANSETRON 4 MG/2 ML VIAL ONE (07:45)
[2022-12-16] MEDS ORDERED: dexAMETHasone 10 MG/ML VIAL ONE (07:45)
[2022-12-16] MEDS ORDERED: LIDOCAINE 2% MPF 5 ML VIAL ONE (07:45)
[2022-12-16] MEDS ORDERED: FENTANYL CITR 100 MCG/2 ML ONE (07:45)
--- NOTE | 2022-12-16 07:48 | P.CNS ---
Date of Consult: 12/16/22 Reason for consult: Abdominal pain History of present illness: Patient is a 37-year-old gentleman who presented to the emergency room with acute onset of periumbilical and right lower quadrant abdominal pain yesterday afternoon. Patient has anorexia. Patient denies nausea, vomiting, diarrhea, occasional constipation and no blood per rectum. Patient denies hematuria or dysuria. Patient denies cough, headaches, dizziness, chest pain, fever or chills. Patient still has pain in the right lower quadrant. There is no history of trauma. Review of systems: Otherwise unremarkable Past medical history: Hypertension Past surgical history: Left orchiectomy for undescended testicle Allergies: None Social history: Patient denies smoking or drinking alcohol Family history: Heart disease, stroke and diabetes Vital signs: Stable, afebrile currently. Last night patient had 1 episode of tachycardia with a heart rate going up to 136. EKG done was unremarkable. Physical exam: Awake and alert, oriented x3 Head and neck exam: No neck masses Chest: Clear Heart: S1-S2 Abdomen: Soft, nondistended, positive bowel sounds, tenderness in the right lower quadrant with minimal rebound no rigidity or guarding Extremity: Neurovascular intact nontender Neuro: Nonfocal Diagnostic data: White count is normal but there is a left shift which has increased since admission. CT of the abdomen pelvis reveals appendicolith with mild dilatation of the appendix probable early appendicitis. Ultrasound of the abdomen was negative Assessment: Likely acute appendicitis Plan/recommendation: Admit, n.p.o., IV fluids, IV antibiotics and to the OR for laparoscopic appendectomy, possible open. Patient and family understand risks, benefits and alternatives and agreed to procedure. I will discussed with Dr. Angulo whether patient needs a cardiac work-up for his tachycardia as inpatient or outpatient. CC: Dr. Marte's office
[2022-12-16] MEDS ORDERED: PIPER TAZO 3.375 GM in NA CHLORIDE 0.9% 100 ML IV ONE (08:00)
[2022-12-16] MEDS ORDERED: EPHEDRINE SULF 50 MG/ML VIAL ONE (08:25)
[2022-12-16] MEDS ORDERED: GLYCOPYRROLATE 0.2 MG/ML SYR ONE (08:45)
[2022-12-16] MEDS ORDERED: NEOSTIGMINE 1 MG/ML -10 ML VIAL ONE (08:45)
[2022-12-16] MEDS ORDERED: Mastisol Adhesive Liq ONE (08:52)
--- NOTE | 2022-12-16 08:52 | P.OP ---
Date of Service: 12/16/22 Preop diagnosis: Acute appendicitis Postop diagnosis: Same Procedure performed: Laparoscopic appendectomy Surgeon: Adrian Henry MD Office Copy Selector: Catalina STRICKLAND Estimated blood loss: Minimal Specimen: Appendix Findings: As above Anesthesia: General Complications: None Drains: None Fluids and blood products: Nonapplicable Disposition: Recovery room Operative note: Patient brought to the OR and placed in the supine position. General anesthesia begun. Patient prepped and draped in the usual sterile fashion. Marcaine 0.5% infiltrated locally. 15 blade used to make a 1 cm supraumbilical midline incision. Subcutaneous tissue divided and bleeding controlled cautery. Fascia identified and divided. #1 Vicryl stay suture placed. Peritoneal cavity entered with sharp and blunt dissection. 12 mm trocar placed into the peritoneal cavity under direct vision. Pneumoperitoneum established. 2 5 mm trochars placed under direct vision. 1 trocar placed in the suprapubic region. Another trocar placed in the left lower quadrant. Laparoscopy revealed acute appendicitis with induration, dilatation and injection of blood vessels. Endo SULMA stapling device used to divide the base of the appendix and the mesoappendix. The appendix was removed via Endo Catch bag through the umbilicus. Right lower quadrant irrigated. Effluent clear. No evidence of bleeding or bowel injury appreciated. All trochars removed under direct vision. Stay sutures tied to each other to reapproximate the fascial defect. Subcutaneous wounds irrigated and bleeding controlled with cautery. 3- 0 chromic used to approximate subcutaneous tissue in close skin. Sterile dressing applied. Patient awakened and taken recovery room in good general condition. CC: Dr. Marte's office
[2022-12-16] MEDS: Ringers Lactate 1,000 ML IV SCH ×2 (09:10→09:46)
[2022-12-16] MEDS ORDERED: HYDROMORPHONE HCL 1 MG/ML INJ IV PRN (09:15)
[2022-12-16] MEDS ORDERED: ONDANSETRON 4 MG/2 ML VIAL IV PRN (09:15)
[2022-12-16] MEDS ORDERED: HYDROCODONE/APAP 7.5/325 MG TAB PO PRN (09:15)
[2022-12-16 13:19] VITALS: O2SAT 96
--- NOTE | 2022-12-16 14:39 | P.DS ---
Admission Date: 12/15/22 Discharge Date: 12/16/22 Disposition: ROUTINE DISCHARGE Discharge Condition: GOOD Reason for Admission: Abdominal tenderness Vital Signs/Physical Exam: Temp Pulse Resp BP Pulse Ox 97.5 F 108 H 19 116/58 L 98 12/16/22 12:00 12/16/22 12:00 12/16/22 12:00 12/16/22 12:00 12/16/22 12:00 Laboratory Data at Discharge: WBC 10.60 K/uL (4.3-10.9) 12/16/22 04:41 Hgb 11.9 g/dL (13.6-17.9) L 12/16/22 04:41 Hct 35.6 % (39.6-49.0) L 12/16/22 04:41 Plt Count 221 K/uL (152-406) 12/16/22 04:41 Sodium 136 mmol/L (136-145) 12/16/22 04:41 Potassium 4.1 mmol/L (3.5-5.1) D 12/16/22 04:41 BUN 10 mg/dL (7-18) 12/16/22 04:41 Creatinine 1.27 mg/dL (0.70-1.30) 12/16/22 04:41 Glucose 124 mg/dL (74-106) H 12/16/22 04:41 Magnesium 2.4 mg/dL (1.6-2.4) 12/16/22 04:41 Total Bilirubin 0.8 mg/dL (0.2-1.0) 12/15/22 17:35 AST 19 U/L (15-37) 12/15/22 17:35 ALT 18 U/L (16-61) 12/15/22 17:35 Alkaline Phosphatase 44 U/L (45-117) L 12/15/22 17:35 Lipase 99 U/L (73-393) 12/15/22 17:35 Home Medications: Codeine/APAP [Tylenol W/Codeine #3 tab] 1 tab PO Q6HP PRN #15 tab 12/16/22 New Medications: Codeine/APAP [Tylenol W/Codeine #3 tab] 1 tab PO Q6HP PRN #15 tab PRN Reason: Pain Physician Discharge Instructions: Remove outer dressing in 2 days and shower Keep Steri-Strips on at all times Incentive spirometry as ordered Follow-up our office in 1 week call for appointment Diet: Low sodium Activity: No lifting more than 10 lbs Followup: OOT,OOT [Primary Care Provider] - Adrian Henry MD [ACTIVE - CAN ADMIT] - 1 Week
[2022-12-16 14:44] LABS: Potassium 4.8 mmol/L (3.5-5.1)
[2022-12-16] MEDS ORDERED: PIPER TAZO 3.375 GM in NA CHLORIDE 0.9% 100 ML IV SCH ×2 (15:00→17:00)
--- NOTE | 2022-12-16 15:31 | EKG ---
Test Date: 2022-12-16 Test Time: 00:45:03 Cover Stripper: [place] MEASUREMENT RESULTS: Intervals: Rate: 129 AR: 152 QRSD: 84 QT: 294 QTc: 430 [place]: P: 60 AR: 152 QRS: 8 T: 56 INTERPRETIVE STATEMENTS: Sinus tachycardia Nonspecific T wave abnormality Abnormal ECG Compared to ECG 11/01/2022 23:36:31 T-wave abnormality now present Sinus rhythm no longer present Left ventricular hypertrophy no longer present Electronically Signed On 12-16-22 15:30:20 SLACKMAN by Patrick Gage
[2022-12-16 16:41] VITALS: BP 109/54; TEMP 97.3
--- NOTE | 2022-12-17 17:36 | EKG ---
Test Date: 2022-12-16 Test Time: 00:45:56 Library Paraprofessional: [place] MEASUREMENT RESULTS: Intervals: Rate: 128 TN: 146 QRSD: 84 QT: 308 QTc: 449 [place]: P: 63 TN: 146 QRS: 13 T: 53 INTERPRETIVE STATEMENTS: Sinus tachycardia Nonspecific T wave abnormality Abnormal ECG Compared to ECG 12/16/2022 00:45:03 No significant changes Electronically Signed On 12-17-22 17:32:26 MEDIA PRODUCTION OPERATOR by Patrick Gage
== END 2022-12-16 20:00 | disposition home or self-care (01) ==
LOC: ER 17:16 → ERHOLD 20:30 → 4TH 20:58
PROVIDERS: ADMIT Hospitalist; ATTEND Hospitalist
PROC: 0DTJ4ZZ Resection of Appendix, Percutaneous Endoscopic Approach (ICD-10-PCS; principal; 2022-12-16 07:30)
DX: K35.80 Unspecified acute appendicitis (principal); I10 Essential (primary) hypertension; E87.6 Hypokalemia; R63.0 Anorexia; Z68.24 Body mass index [BMI] 24.0-24.9, adult; Z20.822 Contact with and (suspected) exposure to COVID-19
CPT/HCPCS: 96361; 93005 ×2; 85025 ×2; 80048 ×2; 36415; 83735 ×2; 84132; 82565; 88304; 83690; 80053; 74177; 76705; 94010 ×2; 96375; 96374; 99285; 87811; 44970; Q9967; J2704; J2710; J2543 ×2; J2001; J3480; J2250; J3010 ×2; J1100; J1170; G0378 ×4; J7120 ×2; J7030 ×3; J2405 ×2

== ENCOUNTER 2022-12-25 13:25 | Emergency (ER) | payer OTHER ==
[2022-12-25 14:06] LABS: Absolute Lymphocytes (CBC) 0.8 K/uL (0.7-4.9); Hematocrit 38.1 % (39.6-49.0); MCV 86.3 fL (80-100); MPV 7.7 fL (7.6-11.3); RBC Red Blood Cell Count 4.41 M/uL (4.33-5.43)
[2022-12-25] MEDS ORDERED: PANTOPRAZOLE 40MG TABLET PO ONE (14:09)
[2022-12-25 14:21] LABS: Albumin 4.1 g/dL (3.4-5.0); Bilirubin Direct 0.2 mg/dL (0-0.2); Bilirubin Total 0.6 mg/dL (0.2-1.0); Magnesium 2.2 mg/dL (1.6-2.4); Potassium 3.9 mmol/L (3.5-5.1); Troponin High Sensitivity 6.5 pg/mL (<58.9)
--- NOTE | 2022-12-25 16:20 | RAD REPORT ---
EXAM DESCRIPTION: Jane Torres And Gregg (2 Views)12/25/2022 4:04 pm CLINICAL HISTORY: Chest pain COMPARISON: October 2022 FINDINGS: The lungs appear clear of acute infiltrate. The heart is normal size IMPRESSION: No acute abnormalities displayed
--- NOTE | 2022-12-25 18:32 | EDPHYS ---
Physician Documentation [facility] Name: Clayton Shetty Jr Age: 37 yrs Sex: Male : 1985 Arrival Date: 12/25/2022 Time: 13:27 Bed 13 Private MD: ED Physician Nick Reeder HPI: 12/25 16:28 This 37 yrs old Black Male presents to ER via Ambulatory with complaints of Chest Pain, snw Back Pain. 16:28 The patient or guardian reports chest pain that is located primarily in the anterior snw chest wall, right. The pain radiates to the right shoulder, right back. Associated signs and symptoms: The patient has no apparent associated signs or symptoms. The chest pain is described as sharp. Duration: The patient or guardian reports a single episode, that is now resolved. Severity of pain: At its worst the pain was moderate. The patient has not experienced similar symptoms in the past. pt recently had an appendectomy per Dr. Henry and was cleared last week. Pt went on a brisk walk to exercise today and began having right chest through to back pain, sharp in nature, called EMS. Historical: - Allergies: 13:36 No Known Allergies; hb - Home Meds: 13:36 Hydrochlorothiazide Oral [Active]; olmesartan 5 mg Oral tab [Active]; hb - PMHx: 13:36 Hypertensive disorder; seasonal allergies; hb - PSHx: 13:36 Testicle removed; hb - Immunization history:: Adult Immunizations up to date. - Social history:: Smoking status: Patient/guardian denies using tobacco. ROS: 16:27 Constitutional: Negative for fever, chills, and weight loss, Eyes: Negative for injury, snw pain, redness, and discharge, ENT: Negative for injury, pain, and discharge, Neck: Negative for injury, pain, and swelling, Respiratory: Negative for shortness of breath, cough, wheezing, and pleuritic chest pain, Abdomen/GI: Negative for abdominal pain, nausea, vomiting, diarrhea, and constipation, Back: Negative for injury, right upper back/shoulder pain, : Negative for injury, bleeding, discharge, and swelling, MS/Extremity: Negative for injury and deformity, Skin: Negative for injury, rash, and discoloration, Neuro: Negative for headache, weakness, numbness, tingling, and seizure, Psych: Negative for depression, anxiety, suicide ideation, homicidal ideation, and hallucinations. 16:27 Cardiovascular: Positive for chest pain, of the right supraclavicular area, right clavicle and anterior aspect of right upper chest. Exam: 16:26 Constitutional: This is a well developed, well nourished patient who is awake, alert, snw and in no acute distress. Head/Face: Normocephalic, atraumatic. Eyes: Pupils equal round and reactive to light, extra-ocular motions intact. Lids and lashes normal. Conjunctiva and sclera are non-icteric and not injected. Cornea within normal limits. Periorbital areas with no swelling, redness, or edema. ENT: Nares patent. No nasal discharge, no septal abnormalities noted. Tympanic membranes are normal and external auditory canals are clear. Oropharynx with no redness, swelling, or masses, exudates, or evidence of obstruction, uvula midline. Mucous membranes moist. Neck: Trachea midline, no thyromegaly or masses palpated, and no cervical lymphadenopathy. Supple, full range of motion without nuchal rigidity, or vertebral point tenderness. No Meningismus. Cardiovascular: Regular rate and rhythm with a normal S1 and S2. No gallops, murmurs, or rubs. Normal PMI, no JVD. No pulse deficits. Respiratory: Lungs have equal breath sounds bilaterally, clear to auscultation and percussion. No rales, rhonchi or wheezes noted. No increased work of breathing, no retractions or nasal flaring. Abdomen/GI: Soft, non-tender, with normal bowel sounds. No distension or tympany. No guarding or rebound. No evidence of tenderness throughout. Recent appendectomy. Back: No spinal tenderness. No costovertebral tenderness. Full range of motion. Skin: Warm, dry with normal turgor. Normal color with no rashes, no lesions, and no evidence of cellulitis. MS/ Extremity: Pulses equal, no cyanosis. Neurovascular intact. Full, normal range of motion. Neuro: Awake and alert, GCS 15, oriented to person, place, time, and situation. Cranial nerves II-XII grossly intact. Motor strength 5/5 in all extremities. Sensory grossly intact. Cerebellar exam normal. Normal gait. Psych: Awake, alert, with orientation to person, place and time. Behavior, mood, and affect are within normal limits. 16:26 Chest/axilla: Inspection: normal, Palpation: is normal. Vital Signs: 13:35 BP 128 / 79; Pulse 78; Resp 16; Temp 97.3; Pulse Ox 98% on R/A; Weight 74.84 kg; Height hb 5 ft. 9 in. (175.26 cm); Pain 7/10; 13:45 BP 116 / 70; Pulse 79; Resp 16; Pulse Ox 98% on R/A; db 15:00 BP 111 / 78; Pulse 74; Resp 16; Pulse Ox 98% on R/A; db 16:17 Pulse 89; Resp 18; Pulse Ox 98% ; db 13:35 Body Mass Index 24.37 (74.84 kg, 175.26 cm) hb MDM: 13:44 Patient medically screened. snw 18:28 Differential diagnosis: abnormal EKG, acute myocardial infarction, anxiety, chest wall snw pain, esophagitis, gastritis, gastroesophageal reflux disease (GERD). Data reviewed: vital signs, nurses notes. Scoring Tools HEART Score: History: ECG: Age: Risk Factors: 1 or 2 risk factors (1), Troponin: Total Score = 1. Counseling: I had a detailed discussion with the patient and/or guardian regarding: the historical points, exam findings, and any diagnostic results supporting the discharge/admit diagnosis, lab results, radiology results, the need for outpatient follow up, for definitive care, to return to the emergency department if symptoms worsen or persist or if there are any questions or concerns that arise at home. Response to treatment: the patient's symptoms have markedly improved after treatment. Special discussion: Based on the patient's history, exam, and Dx evaluation, there is no indication for emergent intervention or inpatient Tx. It is understood by the patient/guardian that if the Sx's persist or worsen they need to return immediately for re-evaluation. Based on the history and exam findings, there is no indication for further emergent testing or inpatient evaluation. I discussed with the patient/guardian the need to see the primary care provider for further evaluation of the symptoms. ED course: HEART, history unlikely, EKG normal, age 37, pt has a hx of HTN (1), troponin negative, rapid rule out done and continues to be negative for concern. 12/25 13:53 Order name: Basic Metabolic Panel; Complete Time: 14:23 12/25 13:53 Order name: CBC with Diff; Complete Time: 14:13 12/25 13:53 Order name: LFT's; Complete Time: 14:23 12/25 13:53 Order name: Magnesium; Complete Time: 14:23 12/25 13:53 Order name: Troponin HS; Complete Time: 14:23 12/25 16:15 Order name: Troponin High Sensitivity; Complete Time: 18:28 12/25 13:53 Order name: EKG; Complete Time: 13:53 12/25 13:53 Order name: Cardiac monitoring; Complete Time: 13:56 12/25 13:53 Order name: EKG - Nurse/Tech; Complete Time: 13:56 12/25 13:53 Order name: IV Saline Lock; Complete Time: 13:56 12/25 13:53 Order name: Labs collected and sent; Complete Time: 13:56 12/25 14:57 Order name: Chest Pa And Lat (2 Views) XRAY; Complete Time: 16:24 12/25 16:15 Order name: EKG; Complete Time: 16:16 12/25 13:53 Order name: O2 Per Protocol; Complete Time: 13:12/25 13:53 Order name: O2 Sat Monitoring; Complete Time: 14:01 12/25 16:15 Order name: EKG - Nurse/Tech; Complete Time: 16:44 12/25 17:32 Order name: Labs - recollect needed: recollect green top underfilled; Complete Time: eb 18:48 EC:37 Rate is 70 beats/min. Rhythm is regular. QRS [place] is Normal. [place] interval is normal. No snw Q waves. Clinical impression: Normal ECG. 16:40 Rate is 71 beats/min. Rhythm is regular. QRS [place] is Normal. [place] interval is normal. T snw waves are Inverted in lead aVR. Clinical impression: Normal ECG. Administered Medications: 14:10 Drug: ProTONIX (pantoprazole) 40 mg Route: PO; db 18:54 Follow up: Response: No adverse reaction db Disposition: 19:35 Co-signature as Attending Physician, Nick Reeder MD I agree with the assessment and kdr plan of care. Disposition Summary: 12/25/22 18:31 Discharge Ordered Location: Home snw Condition: Stable snw Diagnosis - Chest pain, unspecified snw Followup: snw - With: Emergency Department - When: As needed - Reason: Worsening of condition Followup: snw - With: Private Physician - When: 5 - 6 days - Reason: Recheck today's complaints, Continuance of care, Re-evaluation by your physician Discharge Instructions: - Discharge Summary Sheet snw - Nonspecific Chest Pain, Adult snw - Gastroesophageal Reflux Disease, Adult snw - Hypertension, Adult snw - How to Take Your Blood Pressure, [id number] snw - Aspirin and Your Heart snw Forms: - Medication Reconciliation Form snw - Thank You Letter snw - Antibiotic Education snw - Prescription Opioid Use snw Prescriptions: - simethicone - take 240 milligram by ORAL route 1-3 times daily As needed; 1 box; Refills: 0, snw Product Selection Permitted - Pepcid 20 mg Oral Tablet - take 1 tablet by ORAL route once daily; 20 tablet; Refills: 0, Product snw Selection Permitted Signatures: Dispatcher [employer] EDMS Nick Reeder MD MD kdr Waters, Shelly, NURSE DISCHARGE-C NURSE DISCHARGE-Csnw Katiana Andres, AN RN Tamiko Ramos Danielle RN RN db Corrections: (The following items were deleted from the chart) 16:26 16:24 Constitutional: Negative for fever, chills, and weight loss, Eyes: Negative for snw injury, pain, redness, and discharge, ENT: Negative for injury, pain, and discharge, Neck: Negative for injury, pain, and swelling, Cardiovascular: Negative for chest pain, palpitations, and edema, Respiratory: Negative for shortness of breath, cough, wheezing, and pleuritic chest pain, Abdomen/GI: Negative for abdominal pain, nausea, vomiting, diarrhea, and constipation, : Negative for injury, bleeding, discharge, and swelling, MS/Extremity: Negative for injury and deformity, Skin: Negative for injury, rash, and discoloration, Neuro: Negative for headache, weakness, numbness, tingling, and seizure, Psych: Negative for depression, anxiety, suicide ideation, homicidal ideation, and hallucinations, snw 16:26 16:24 Back: Positive for pain at rest, pain with movement, Negative for radiated pain, snw snw 16:27 16:26 Constitutional: This is a well developed, well nourished patient who is awake, snw alert, and in no acute distress. Head/Face: Normocephalic, atraumatic. Eyes: Pupils equal round and reactive to light, extra-ocular motions intact. Lids and lashes normal. Conjunctiva and sclera are non-icteric and not injected. Cornea within normal limits. Periorbital areas with no swelling, redness, or edema. ENT: Nares patent. No nasal discharge, no septal abnormalities noted. Tympanic membranes are normal and external auditory canals are clear. Oropharynx with no redness, swelling, or masses, exudates, or evidence of obstruction, uvula midline. Mucous membranes moist. Neck: Trachea midline, no thyromegaly or masses palpated, and no cervical lymphadenopathy. Supple, full range of motion without nuchal rigidity, or vertebral point tenderness. No Meningismus. Cardiovascular: Regular rate and rhythm with a normal S1 and S2. No gallops, murmurs, or rubs. Normal PMI, no JVD. No pulse deficits. Respiratory: Lungs have equal breath sounds bilaterally, clear to auscultation and percussion. No rales, rhonchi or wheezes noted. No increased work of breathing, no retractions or nasal flaring. Abdomen/GI: Soft, non-tender, with normal bowel sounds. No distension or tympany. No guarding or rebound. No evidence of tenderness throughout. Back: No spinal tenderness. No costovertebral tenderness. Full range of motion. Skin: Warm, dry with normal turgor. Normal color with no rashes, no lesions, and no evidence of cellulitis. MS/ Extremity: Pulses equal, no cyanosis. Neurovascular intact. Full, normal range of motion. Neuro: Awake and alert, GCS 15, oriented to person, place, time, and situation. Cranial nerves II-XII grossly intact. Motor strength 5/5 in all extremities. Sensory grossly intact. Cerebellar exam normal. Normal gait. Psych: Awake, alert, with orientation to person, place and time. Behavior, mood, and affect are within normal limits. snw 16:28 16:25 The patient presents with pain and an injury, and tenderness, snw snw : 16:25 The symptoms are located in the low back, snw snw : 16:25 The pain does not radiate. snw snw : 16:25 Onset: The symptoms/episode began/occurred suddenly, snw snw 16:25 The problem was sustained when lifting heavy object, snw snw 16:25 The patient has experienced a previous episode, many years ago, snw snw 16:25 This 37 yrs old Black Male presents to ER via Ambulatory with complaints of Chest snw Pain, Back Pain. snw
--- NOTE | 2022-12-25 18:32 | ER ---
Nurse's Notes [facility] Name: Clayton Shetty Jr Age: 37 yrs Sex: Male : 1985 Arrival Date: 12/25/2022 Time: 13:27 Bed 13 Private MD: Diagnosis: Chest pain, unspecified Presentation: 12/25 13:35 Chief complaint: Substernal chest pain that radiates to right chest that started after hb completing a 20 minute walk. Reports he had appendectomy by Dr. Henry 12/16. Coronavirus screen: At this time, the client does not indicate any symptoms associated with coronavirus-19. Ebola Screen: No symptoms or risks identified at this time. Initial Sepsis Screen: Does the patient meet any 2 criteria? No. Patient's initial sepsis screen is negative. Does the patient have a suspected source of infection? No. Patient's initial sepsis screen is negative. Risk Assessment: Do you want to hurt yourself or someone else? Patient reports no desire to harm self or others. Onset of symptoms was December 25, 2022. 13:35 Method Of Arrival: Ambulatory hb 13:35 Acuity: CEM 3 hb Triage Assessment: 13:40 General: Appears in no apparent distress. comfortable, Behavior is calm, cooperative. db Pain: Complains of pain in chest and back. Historical: - Allergies: 13:36 No Known Allergies; hb - Home Meds: 13:36 Hydrochlorothiazide Oral [Active]; olmesartan 5 mg Oral tab [Active]; hb - PMHx: 13:36 Hypertensive disorder; seasonal allergies; hb - PSHx: 13:36 Testicle removed; hb - Immunization history:: Adult Immunizations up to date. - Social history:: Smoking status: Patient/guardian denies using tobacco. Screenin:45 [facility] ED Fall Risk Assessment (Adult) History of falling in the last 3 months, db including since admission No falls in past 3 months (0 pts) Confusion or Disorientation No (0 pts) Intoxicated or Sedated No (0 pts) Impaired Gait No (0 pts) Mobility Assist Device Used No (0 pt) Altered Elimination No (0 pt) Score/Fall Risk Level 0 - 2 = Low Risk Oriented to surroundings, Maintained a safe environment. Abuse screen: Denies threats or abuse. Denies injuries from another. Nutritional screening: No deficits noted. Tuberculosis screening: No symptoms or risk factors identified. Assessment: 13:39 Reassessment: Patient appears in no apparent distress at this time. Patient and/or db family updated on plan of care and expected duration. Pain level reassessed. Patient is alert, oriented x 3, equal unlabored respirations, skin warm/dry/pink. chest pain started today after 20 min walk. recent appy last week. Pain: Complains of pain in chest Pain radiates to back Pain began suddenly. Cardiovascular: Reports chest pain, Denies shortness of breath. 15:09 Reassessment: Patient appears in no apparent distress at this time. Patient and/or db family updated on plan of care and expected duration. Pain level reassessed. Patient is alert, oriented x 3, equal unlabored respirations, skin warm/dry/pink. General: Appears in no apparent distress. comfortable, Behavior is calm, cooperative, appropriate for age. Pain: Complains of pain in chest and back. Neuro: No deficits noted. Level of Consciousness is awake, alert, obeys commands, Oriented to person, place, time, situation. 16:17 Reassessment: Patient appears in no apparent distress at this time. Patient and/or db family updated on plan of care and expected duration. Pain level reassessed. Patient is alert, oriented x 3, equal unlabored respirations, skin warm/dry/pink. 17:00 Reassessment: Patient appears in no apparent distress at this time. Patient and/or db family updated on plan of care and expected duration. Pain level reassessed. Patient is alert/active/playful, equal unlabored respirations, skin warm/dry/pink. 18:00 Reassessment: Patient appears in no apparent distress at this time. Patient and/or db family updated on plan of care and expected duration. Pain level reassessed. Patient is alert, oriented x 3, equal unlabored respirations, skin warm/dry/pink. lab is at bedside for repeat blood draw. 18:53 Reassessment: Patient appears in no apparent distress at this time. Patient and/or db family updated on plan of care and expected duration. Pain level reassessed. Patient is alert, oriented x 3, equal unlabored respirations, skin warm/dry/pink. General: Appears in no apparent distress. comfortable, Behavior is calm, cooperative, appropriate for age. Vital Signs: 13:35 BP 128 / 79; Pulse 78; Resp 16; Temp 97.3; Pulse Ox 98% on R/A; Weight 74.84 kg; Height hb 5 ft. 9 in. (175.26 cm); Pain 7/10; 13:45 BP 116 / 70; Pulse 79; Resp 16; Pulse Ox 98% on R/A; db 15:00 BP 111 / 78; Pulse 74; Resp 16; Pulse Ox 98% on R/A; db 16:17 Pulse 89; Resp 18; Pulse Ox 98% ; db 13:35 Body Mass Index 24.37 (74.84 kg, 175.26 cm) hb Vitals: 13:45 Cardiac Rhythm Assessment Sinus rhythm. db ED Course: 13:27 Patient arrived in ED. rg4 13:29 Alexandra Perkins FNP-C is PHCP. snw 13:29 Nick Reeder MD is Attending Physician. snw 13:32 Sharon Macdonald, AN is Primary Nurse. db 13:36 Triage completed. hb 13:36 Arm band placed on. hb 13:45 Patient has correct armband on for positive identification. Bed in low position. Call db light in reach. Side rails up X 1. Client placed on continuous cardiac and pulse oximetry monitoring. NIBP monitoring applied. Pillow given. 13:55 Initial lab(s) drawn, by me, sent to lab. kj1 13:55 Inserted saline lock: 20 gauge in right antecubital area, using aseptic technique. kj1 13:55 EKG done, by ED staff, reviewed by Nick Reeder MD. kj1 16:06 Chest Pa And Lat (2 Views) XRAY In Process Unspecified. EDMS 18:54 No provider procedures requiring assistance completed. IV discontinued, intact, db bleeding controlled, No redness/swelling at site. Patient maintains SpO2 saturation greater than 95% on room air. Administered Medications: 14:10 Drug: ProTONIX (pantoprazole) 40 mg Route: PO; db 18:54 Follow up: Response: No adverse reaction db Medication: 18:54 VIS not applicable for this client. db Outcome: 18:31 Discharge ordered by . snw 18:53 Discharged to home ambulatory. db 18:53 Condition: good 18:53 Discharge instructions given to patient, Instructed on discharge instructions, Prescriptions given X 2. 18:57 Patient left the ED. db Signatures: Dispatcher [employer] EDAlexandra Melchor, CASE SUPERVISOR-C CASE SUPERVISOR-Csnw Katiana Andres, RN RN Irina Jenkins Kandis kj1 Sharon Macdonald RN RN db Corrections: (The following items were deleted from the chart) 15: 14:25 Inserted saline lock: 20 gauge in right antecubital area, using aseptic kj1 technique. kj1 15: 14:25 Initial lab(s) drawn, by me, sent to lab. kj1 kj1 15:07 15:06 EKG done, by ED staff, reviewed by Nick Reeder MD kj1 kj1
[2022-12-25 19:10] VITALS: TEMP 97.3; O2SAT 98
[2022-12-25 19:25] VITALS: BP 111/78
--- NOTE | 2022-12-28 17:06 | EKG ---
Test Date: 2022-12-25 Test Time: 13:37:46 Ski Topper: EMILY MEASUREMENT RESULTS: Intervals: Rate: 70 NV: 142 QRSD: 102 QT: 396 QTc: 427 [place]: P: 57 NV: 142 QRS: 19 T: 44 INTERPRETIVE STATEMENTS: Normal sinus rhythm Normal ECG Compared to ECG 12/16/2022 00:45:56 Sinus tachycardia no longer present T-wave abnormality no longer present Electronically Signed On 12-28-22 16:59:26 MAIL HANDLER SORTER by Patrick Ggae
--- NOTE | 2022-12-28 17:06 | EKG ---
Test Date: 2022-12-25 Test Time: 16:38:24 Chlorine Cell Tender: EMILY MEASUREMENT RESULTS: Intervals: Rate: 71 ND: 142 QRSD: 84 QT: 386 QTc: 419 [place]: P: 40 ND: 142 QRS: 26 T: 48 INTERPRETIVE STATEMENTS: Normal sinus rhythm Normal ECG Compared to ECG 12/25/2022 13:37:46 No significant changes Electronically Signed On 12-28-22 16:58:44 WEB PRODUCER by Patrick Gage
== END 2022-12-25 18:57 | disposition home or self-care (01) ==
LOC: ER 13:25
DX: R07.89 Other chest pain (principal); I10 Essential (primary) hypertension
CPT/HCPCS: 36415; 71046; 80048; 80076; 83735; 84484; 85025; 93005; 99284

== ENCOUNTER 2023-08-13 23:32 | Emergency (ER) | payer OTHER ==
--- NOTE | 2023-08-14 00:40 | ER ---
Nurse's Notes [facility] Name: Clayton Shetty Jr Age: 37 yrs Sex: Male : 1985 Arrival Date: 08/13/2023 Time: 23:32 Bed 12 Private MD: Diagnosis: Sneezing Presentation: 08/13 23:42 Chief complaint: Patient states: Intermittent fever and chills since . Reports kb3 he sneezed just prior to arrival and felt light-headed momentarily. Dizziness has resolved. Reports mom has been sick recently. Coronavirus screen: Vaccine status: Patient reports receiving the 2nd dose of the covid vaccine. Client denies travel out of the [place] in the last 14 days. Ebola Screen: Patient negative for fever greater than or equal to 101.5 degrees Fahrenheit, and additional compatible Ebola Virus Disease symptoms Patient denies exposure to infectious person. Patient denies travel to an Ebola-affected area in the 21 days before illness onset. Initial Sepsis Screen: Does the patient meet any 2 criteria? No. Patient's initial sepsis screen is negative. Does the patient have a suspected source of infection? No. Patient's initial sepsis screen is negative. Risk Assessment: Do you want to hurt yourself or someone else? Patient reports no desire to harm self or others. Onset of symptoms was August 11, 2023. 23:42 Method Of Arrival: Ambulatory 3 23:42 Acuity: CEM 3 kb3 Triage Assessment: 23:44 General: Appears in no apparent distress. comfortable, Behavior is calm, cooperative. kb3 Pain: Denies pain. Neuro: No deficits noted. Level of Consciousness is awake, alert, obeys commands, Oriented to person, place, time, situation, Wire Brush Maker are equal bilaterally Moves all extremities. Gait is steady, Speech is normal, Facial symmetry appears normal. Historical: - Allergies: 23:44 No Known Allergies; kb3 - Home Meds: 23:44 olmesartan 5 mg Oral tab [Active]; hydrochlorothiazide 12.5 mg Oral capsule every other kb3 day [Active]; - PMHx: 23:44 Hypertensive disorder; seasonal allergies; kb3 - PSHx: 23:44 Testicle removed; Appendectomy; kb3 - Immunization history:: Adult Immunizations up to date, Client reports receiving the 2nd dose of the Covid vaccine. - Social history:: Smoking status: Patient denies any tobacco usage or history of. Patient/guardian denies using alcohol, street drugs. Screenin:46 [facility] ED Fall Risk Assessment (Adult) History of falling in the last 3 months, kb3 including since admission No falls in past 3 months (0 pts) Confusion or Disorientation No (0 pts) Intoxicated or Sedated No (0 pts) Impaired Gait No (0 pts) Mobility Assist Device Used No (0 pt) Altered Elimination No (0 pt) Score/Fall Risk Level 0 - 2 = Low Risk Oriented to surroundings, Maintained a safe environment, Educated pt \T\ family on fall prevention, incl call for assistance when getting out of bed. Abuse screen: Denies threats or abuse. Denies injuries from another. Nutritional screening: No deficits noted. Tuberculosis screening: No symptoms or risk factors identified. Assessment: 23:46 General: See triage notes. kb3 Vital Signs: 23:42 BP 146 / 93; Pulse 88; Resp 18; Pulse Ox 100% ; Weight 79.83 kg; Height 5 ft. 9 in. ; kb3 Pain 0/10; 08/14 01:20 BP 135 / 89; Pulse 83; Resp 20; Pulse Ox 100% ; Pain 0/10; kb3 08/13 23:42 Body Mass Index 25.99 (79.83 kg, 175.26 cm) kb3 08/13 23:42 Pain Scale: Adult kb3 08/14 01:20 Pain Scale: Adult kb3 ED Course: 08/13 23:36 Patient arrived in ED. jj6 23:38 Noe Chavez PA is PHCP. cp 23:38 Arnoldo Mendoza MD is Attending Physician. cp 23:44 Triage completed. kb3 23:44 Arm band placed on right wrist. Patient placed in an exam room, on a stretcher. kb3 23:46 Patient has correct armband on for positive identification. Bed in low position. Call kb3 light in reach. Provided Education on: Plan of care. Door closed. Warm blanket given. 23:46 No provider procedures requiring assistance completed. Patient did not have IV access kb3 during this emergency room visit. 08/14 00:01 COVID-19 SARS RT PCR Sent. pf1 00:01 Influenza Screen (a \T\ B) Sent. pf1 Administered Medications: No medications were administered Medication: 08/13 23:46 VIS not applicable for this client. kb3 Outcome: 08/14 00:40 Discharge ordered by . pranay 01:20 Discharged to home ambulatory. kb3 01:20 Condition: stable 01:20 Discharge instructions given to patient, Instructed on discharge instructions, follow up and referral plans. medication usage, Demonstrated understanding of instructions, follow-up care, medications, Prescriptions given X 1. 01:37 Patient left the ED. kb3 Signatures: Noe Chavez PA PA cp Jeffries, Jennifer jj6 Mago Mendez, RN RN kb3 Rebecca Koenig, RN RN pf1
--- NOTE | 2023-08-14 00:40 | EDPHYS ---
Physician Documentation [facility] Name: Clayton Shetty Jr Age: 37 yrs Sex: Male : 1985 Arrival Date: 08/13/2023 Time: 23:32 Bed 12 Private MD: ED Physician Arnoldo Mendoza HPI: 08/14 00:00 This 37 yrs old Black Male presents to ER via Ambulatory with complaints of Fever, cp Dizziness. 00:00 The patient reports fever, not measured (subjective), that was measured at 99 degrees cp Fahrenheit. Onset: The symptoms/episode began/occurred 2 day(s) ago. Associated signs and symptoms: Pertinent positives: dizziness after 1 episode of dizziness today, Pertinent negatives: chills, cough, diarrhea, skin rash, sore throat, vomiting, body aches. Severity of symptoms: in the emergency department the symptoms have improved markedly. Historical: - Allergies: 08/13 23:44 No Known Allergies; kb3 - Home Meds: 23:44 olmesartan 5 mg Oral tab [Active]; hydrochlorothiazide 12.5 mg Oral capsule every other kb3 day [Active]; - PMHx: 23:44 Hypertensive disorder; seasonal allergies; kb3 - PSHx: 23:44 Testicle removed; Appendectomy; kb3 - Immunization history:: Adult Immunizations up to date, Client reports receiving the 2nd dose of the Covid vaccine. - Social history:: Smoking status: Patient denies any tobacco usage or history of. Patient/guardian denies using alcohol, street drugs. ROS: 08/14 00:05 Constitutional: Negative for body aches, chills, fever, poor PO intake. cp 00:05 Eyes: Negative for injury, pain, redness, and discharge. cp 00:05 ENT: Negative for drainage from ear(s), ear pain, sore throat, difficulty swallowing, difficulty handling secretions. 00:05 Respiratory: Negative for cough, shortness of breath, wheezing. 00:05 Abdomen/GI: Negative for abdominal pain, nausea, vomiting, and diarrhea. 00:05 Skin: Negative for rash. 00:05 Neuro: Positive for dizziness, Negative for altered mental status, headache, weakness. 00:05 All other systems are negative. Exam: 00:10 Constitutional: The patient appears in no acute distress, alert, awake, comfortable, cp non-toxic, well developed, well nourished. 00:10 Head/Face: Normocephalic, atraumatic. cp 00:10 Eyes: Periorbital structures: appear normal, Conjunctiva: normal, no exudate, no cp injection, Sclera: no appreciated abnormality, Lids and lashes: appear normal, bilaterally. 00:10 ENT: External ear(s): are unremarkable, Ear canal(s): are normal, clear, TM's: dullness, bilaterally, Nose: is normal, Mouth: Lips: moist, Oral mucosa: pink and intact, moist, Posterior pharynx: is normal, airway is patent, no erythema, no exudate, Tonsils: are normal in appearance. 00:10 Neck: ROM/movement: is normal, is supple, without pain, no range of motions limitations, Lymph nodes: no appreciated lymphadenopathy. 00:10 Chest/axilla: Inspection: normal. cp 00:10 Cardiovascular: Rate: normal, Rhythm: regular. 00:10 Respiratory: the patient does not display signs of respiratory distress, Respirations: normal, no use of accessory muscles, no retractions, labored breathing, is not present, Breath sounds: are clear throughout, no decreased breath sounds, no stridor, no wheezing. 00:10 Abdomen/GI: Inspection: abdomen appears normal. Vital Signs: 08/13 23:42 BP 146 / 93; Pulse 88; Resp 18; Pulse Ox 100% ; Weight 79.83 kg; Height 5 ft. 9 in. ; kb3 Pain 0/10; 08/14 01:20 BP 135 / 89; Pulse 83; Resp 20; Pulse Ox 100% ; Pain 0/10; kb3 08/13 23:42 Body Mass Index 25.99 (79.83 kg, 175.26 cm) kb3 08/13 23:42 Pain Scale: Adult kb3 08/14 01:20 Pain Scale: Adult kb3 MDM: 08/13 23:38 Patient medically screened. cp 08/14 00:00 Differential diagnosis: viral Infection, bacterial infection, URI. cp 00:40 Data reviewed: vital signs, nurses notes, lab test result(s). cp 00:40 Counseling: I had a detailed discussion with the patient and/or guardian regarding the cp historical points, exam findings, and any diagnostic results supporting the discharge/admit diagnosis, lab results, to return to the emergency department if symptoms worsen or persist or if there are any questions or concerns that arise at home. 08/13 23:48 Order name: Influenza Screen (a \T\ B); Complete Time: 00:39 cp 08/14 00:39 Interpretation: Reviewed. cp 08/13 23:48 Order name: COVID-19 SARS RT PCR; Complete Time: 00:39 cp 08/14 00:39 Interpretation: Reviewed. cp Administered Medications: No medications were administered Disposition: 03:36 Co-signature as Attending Physician, Arnoldo Mendoza MD I agree with the assessment sp4 and plan of care. I reviewed the patient's care provided by the Advanced Practice Provider and agree with the diagnosis and treatment plan. Disposition Summary: 08/14/23 00:40 Discharge Ordered Location: Home cp Problem: new cp Symptoms: have improved cp Condition: Stable cp Diagnosis - Sneezing cp Followup: cp - With: Private Physician - When: 2 - 3 days - Reason: Worsening of condition Discharge Instructions: - Discharge Summary Sheet cp - Allergies, Adult cp Forms: - Medication Reconciliation Form cp - Thank You Letter cp - Antibiotic Education cp - Prescription Opioid Use cp - Patient Portal Instructions cp - Leadership Thank You Letter cp Prescriptions: - Zyrtec 10 mg Oral Tablet - take 1 tablet by ORAL route once daily As needed; 20 tablet; Refills: 0, cp Product Selection Permitted Signatures: Dispatcher [employer] EDMS Noe Chavez PA PA cp Mago Mendez, RN RN kb3 Arnoldo Mendoza MD MD sp4
[2023-08-14 01:45] VITALS: O2SAT 100
[2023-08-14 01:46] VITALS: BP 135/89
== END 2023-08-14 01:37 | disposition home or self-care (01) ==
LOC: ER 23:32
DX: R06.7 Sneezing (principal); R42 Dizziness and giddiness; J30.2 Other seasonal allergic rhinitis; I10 Essential (primary) hypertension; Z20.822 Contact with and (suspected) exposure to COVID-19
CPT/HCPCS: 87635; 87804; 99283

== ENCOUNTER 2023-08-30 21:27 | Emergency (ER) | payer OTHER ==
[2023-08-30] MEDS ORDERED: ACETAMINOPHEN 500 MG TAB ONE (21:57)
--- NOTE | 2023-08-30 22:37 | ER ---
Nurse's Notes [facility] Name: Clayton Shetty Jr Age: 38 yrs Sex: Male : 1985 Arrival Date: 08/30/2023 Time: 21:27 Bed 9 Private MD: Diagnosis: Acute upper respiratory infection, unspecified Presentation: 08/30 21:38 Chief complaint: Patient states: Tuesday he started not feeling well and today he pf1 developed a cough. pt states that he did an at home covid test and it was negative. Coronavirus screen: Vaccine status: Patient reports receiving the 2nd dose of the covid vaccine. Client denies travel out of the [place] in the last 14 days. Ebola Screen: Patient denies travel to an Ebola-affected area in the 21 days before illness onset. No symptoms or risks identified at this time. Resp Distress? No respiratory distress is noted at this time. Initial Sepsis Screen: Does the patient meet any 2 criteria? No. Patient's initial sepsis screen is negative. Does the patient have a suspected source of infection? No. Patient's initial sepsis screen is negative. Risk Assessment: Do you want to hurt yourself or someone else? Patient reports no desire to harm self or others. Onset of symptoms was August 30, 2023. 21:38 Method Of Arrival: Ambulatory pf1 21:38 Acuity: CEM 4 pf1 Triage Assessment: 21:41 General: Appears in no apparent distress. comfortable, Behavior is calm, cooperative. pf1 Pain: Denies pain. Neuro: No deficits noted. Level of Consciousness is awake, alert, obeys commands, Oriented to person, place, time, situation. Cardiovascular: No deficits noted. Respiratory: No deficits noted. Airway is patent Respiratory effort is even, unlabored, Respiratory pattern is regular, symmetrical, Breath sounds are clear bilaterally. GI: No deficits noted. No signs and/or symptoms were reported involving the gastrointestinal system. : No deficits noted. Derm: No deficits noted. No signs and/or symptoms reported regarding the dermatologic system. Skin is intact, Skin is pink, warm \T\ dry. Historical: - Allergies: 21:40 No Known Allergies; pf1 - PMHx: 21:40 Hypertensive disorder; seasonal allergies; pf1 - PSHx: 21:40 Appendectomy; Testicle removed; pf1 - Immunization history:: Adult Immunizations unknown. - Social history:: Smoking status: Patient/guardian denies using tobacco. Screenin:51 [facility] ED Fall Risk Assessment (Adult) History of falling in the last 3 months, cm10 including since admission No falls in past 3 months (0 pts) Confusion or Disorientation No (0 pts) Intoxicated or Sedated No (0 pts) Impaired Gait No (0 pts) Mobility Assist Device Used No (0 pt) Altered Elimination No (0 pt) Score/Fall Risk Level 0 - 2 = Low Risk Oriented to surroundings, Maintained a safe environment, Hourly rounding (assess needs \T\ fall precautionary measures) done. Abuse screen: Denies threats or abuse. Denies injuries from another. Nutritional screening: No deficits noted. Tuberculosis screening: No symptoms or risk factors identified. Assessment: 21:51 General: Appears in no apparent distress. comfortable, Behavior is calm, cooperative. cm10 Neuro: No deficits noted. Level of Consciousness is awake, alert, obeys commands, Oriented to person, place, time, situation. Cardiovascular: No deficits noted. Heart tones present. Cardiovascular:. Respiratory: No deficits noted. Airway is patent Respiratory effort is even, unlabored, Respiratory pattern is regular, symmetrical. Respiratory: Breath sounds are clear bilaterally. Respiratory: Reports cough that is non-productive, dry. Vital Signs: 21:38 BP 153 / 83; Pulse 88; Resp 18 S; Temp 98.7(O); Pulse Ox 97% on R/A; Weight 79.38 kg pf1 (R); Height 5 ft. 9 in. (R); Pain 0/10; 21:38 Body Mass Index 25.84 (79.38 kg, 175.26 cm) pf1 21:38 Pain Scale: Adult pf1 ED Course: 21:36 Patient arrived in ED. gm2 21:36 Al[facility] Munoz [facility]C [facility] kb 21:36 Aide Kaplan MD is Attending Physician. kb 21:40 Triage completed. pf1 21:41 Arm band placed on Patient placed in waiting room. pf1 21:51 SARS-COV-2 RT PCR Sent. cm10 21:51 Flu Sent. cm10 21:51 No provider procedures requiring assistance completed. COVID swab sent to lab. Flu cm10 and/or RSV swab sent to lab. Patient did not have IV access during this emergency room visit. 21:53 Patient has correct armband on for positive identification. Call light in reach. cm10 Provided Education on: ER process and procedures. . Administered Medications: 21:51 Drug: Acetaminophen PO 1000 mg PO once Route: PO; cm10 22:41 Follow up: Response: No adverse reaction cm10 Medication: 21:51 VIS not applicable for this client. cm10 Outcome: 22:36 Discharge ordered by MD. call 22:42 Discharged to home ambulatory, 10 22:42 Condition: good 22:42 Discharge instructions given to patient, Instructed on discharge instructions, follow up and referral plans. Demonstrated understanding of instructions, follow-up care, 22:42 Patient left the ED. cm10 Signatures: Alisia Munoz, MARQUEZ-C HAZARDOUS SUBSTANCES SCIENTIST-Rebecca Jasso, RN RN pf1 Monserrat Barbosa RN RN cm10 Gila Reyes 2
--- NOTE | 2023-08-30 22:37 | EDPHYS ---
Physician Documentation [facility] Name: Clayton Shetty Jr Age: 38 yrs Sex: Male : 1985 Arrival Date: 08/30/2023 Time: 21:27 Bed 9 Private MD: ED Physician Aide Kaplan HPI: 08/30 21:42 This 38 yrs old Black Male presents to ER via Ambulatory with complaints of Cough, kb Congestion. 21:42 The patient or guardian reports cough. Onset: The symptoms/episode began/occurred kb today. Severity of symptoms: At their worst the symptoms were mild, in the emergency department the symptoms are unchanged. Modifying factors: The symptoms are alleviated by nothing, the symptoms are aggravated by nothing. Associated signs and symptoms: The patient has no apparent associated signs or symptoms. The patient has not experienced similar symptoms in the past. The patient has not recently seen a physician. Pt reports malaise for 3 days, cough started today. States he came to make sure it wasn't anything to worry about because he has safety activities counselor tomorrow. Historical: - Allergies: 21:40 No Known Allergies; pf1 - PMHx: 21:40 Hypertensive disorder; seasonal allergies; pf1 - PSHx: 21:40 Appendectomy; Testicle removed; pf1 - Immunization history:: Adult Immunizations unknown. - Social history:: Smoking status: Patient/guardian denies using tobacco. ROS: 21:42 Abdomen/GI: Negative for abdominal pain, nausea, vomiting, diarrhea, and constipation, kb 21:42 Constitutional: Positive for malaise, 21:42 Respiratory: Positive for cough, 21:42 All other systems are negative, Exam: 21:42 Constitutional: This is a well developed, well nourished patient who is awake, alert, kb and in no acute distress. Head/Face: Normocephalic, atraumatic. ENT: Moist Mucous membranes Cardiovascular: Regular rate Respiratory: Respirations even and unlabored. No increased work of breathing. Talking in full sentences Skin: Warm, dry with normal turgor. Normal color. MS/ Extremity: Pulses equal, no cyanosis. Neurovascular intact. Full, normal range of motion. Neuro: Awake and alert, GCS 15, oriented to person, place, time, and situation. Moves all extremities. Normal gait. Vital Signs: 21:38 BP 153 / 83; Pulse 88; Resp 18 S; Temp 98.7(O); Pulse Ox 97% on R/A; Weight 79.38 kg pf1 (R); Height 5 ft. 9 in. (R); Pain 0/10; 21:38 Body Mass Index 25.84 (79.38 kg, 175.26 cm) pf1 21:38 Pain Scale: Adult pf1 MDM: 21:39 Patient medically screened. kb 21:43 Differential Diagnosis: Other uri, covid, flu. Data reviewed: vital signs, nurses notes.kb 22:35 Counseling: I had a detailed discussion with the patient and/or guardian regarding the historical points, exam findings, and any diagnostic results supporting the discharge/admit diagnosis, lab results, the need for outpatient follow up, a family practitioner, to return to the emergency department if symptoms worsen or persist or if there are any questions or concerns that arise at home. 22:35 I considered the following discharge prescriptions or medication management in the emergency department I discussed and recommended Over The Counter medications, Antibiotics: At this time antibiotics are not recommended. 08/30 21:39 Order name: Flu; Complete Time: 22:37 kb 08/30 21:39 Order name: SARS-COV-2 RT PCR; Complete Time: 22:30 kb Administered Medications: 21:51 Drug: Acetaminophen PO 1000 mg PO once Route: PO; cm10 22:41 Follow up: Response: No adverse reaction cm10 Disposition Summary: 08/30/23 22:36 Discharge Ordered Notes: Location: Home kb Condition: Stable kb Diagnosis - Acute upper respiratory infection, unspecified kb Followup: kb - With: Emergency Department - When: As needed - Reason: Worsening of condition Followup: kb - With: Private Physician - When: 2 - 3 days - Reason: Recheck today's complaints, Continuance of care, Re-evaluation by your physician Discharge Instructions: - Discharge Summary Sheet kb - Upper Respiratory Infection, Adult, [id number] kb - Viral Respiratory Infection, [id number] kb Forms: - Medication Reconciliation Form kb - Thank You Letter kb - Antibiotic Education kb - Prescription Opioid Use kb - Patient Portal Instructions kb - Leadership Thank You Letter kb Signatures: Dispatcher [employer] Alisia Schafer, MINERAL ECONOMIST-C MARQUEZ-Rebecca Jasso RN RN pf1 Monserrat Barbosa, RN RN cm10
[2023-08-30 22:51] VITALS: BP 153/83; TEMP 98.7; O2SAT 97
== END 2023-08-30 22:42 | disposition home or self-care (01) ==
LOC: ER 21:27
DX: J06.9 Acute upper respiratory infection, unspecified (principal); Z20.822 Contact with and (suspected) exposure to COVID-19; I10 Essential (primary) hypertension
CPT/HCPCS: 87635; 87804; 99283

== ENCOUNTER 2023-10-07 19:05 | Emergency (ER) | payer OTHER ==
[2023-10-07 21:37] LABS: Lymphocytes % 17.7 % (15.3-44.8); MCV 86.7 fL (80-100); MPV 7.6 fL (7.6-11.3); Platelets 225 thou/uL (152-406); RBC Red Blood Cell Count 4.61 M/uL (4.33-5.43)
--- NOTE | 2023-10-07 21:55 | RAD REPORT ---
EXAM DESCRIPTION: RADChest Single View10/07/2023 9:19 pm CLINICAL HISTORY: CHEST PAIN COMPARISON: Chest Pa And Lat (2 Views) dated 12/25/2022; Chest Single View dated 11/01/2022; Chest Sin gle View dated 09/18/2022 TECHNIQUE: Portable AP view of the chest. FINDINGS: The lungs are clear. No pneumothorax or effusion. The cardiomediastinal contours are unre markable. IMPRESSION: No acute cardiopulmonary process.
[2023-10-07 22:04] LABS: Magnesium 2.3 mg/dL (1.6-2.4); Potassium 3.5 mEq/L (3.5-5.1); Troponin High Sensitivity 7.6 pg/mL (<58.9)
[2023-10-07 22:16] LABS: Specific Gravity 1.018 (1.005-1.030); Urine Bacteria None Seen /HPF (<20); Urine Bilirubin NEGATIVE (Negative); Urine Blood Negative (Negative); Urine Clarity Clear (Clear); Urine Color Light-Yellow (Yellow); Urine Glucose NEGATIVE (Negative); Urine Mucus Slight /HPF (None Seen); Urine Protein NEGATIVE (Negative); Urine RBC <5 /HPF (None Seen); Urine Urobilinogen Normal (Normal); Urine pH 6.5 (5.0-7.0)
[2023-10-07 22:28] LABS: Barbiturates NEGATIVE (NEGATIVE); Benzodiazepines NEGATIVE (NEGATIVE); Cocaine NEGATIVE (NEGATIVE); METHAMPHETAM NEGATIVE (NEGATIVE); Methadone NEGATIVE (NEGATIVE); Opiates NEGATIVE (NEGATIVE); Phencyclidine NEGATIVE (NEGATIVE); THC Cannibis NEGATIVE (NEGATIVE)
--- NOTE | 2023-10-07 22:46 | EDPHYS ---
Physician Documentation [facility] Name: Clayton Shetty Jr Age: 38 yrs Sex: Male : 1985 Arrival Date: 10/07/2023 Time: 19:05 Bed 11 Private MD: Sergio Griffin Yu ED Physician Aide Kaplan HPI: 10/07 21:00 This 38 yrs old Black Male presents to ER via Ambulatory with complaints of Chest cp Tightness. 21:00 The patient or guardian reports chest pain that is located primarily in the anterior cp chest wall, left. 21:00 Onset: this morning. The pain does not radiate. Associated signs and symptoms: cp Pertinent positives: shortness of breath, Pertinent negatives: abdominal pain, cough, syncope. 21:00 Patient is a 38-year-old male with past medical history significant for hypertension cp who presents to emergency department with complaints of left-sided chest tightness that started this morning about 2 or 3 hours after awakening at about 5:00. Patient reports pain seems to worsen with deep inspiration and denies any exertional pain. Historical: - Allergies: 19:49 No Known Allergies; vc1 - PMHx: 19:49 Hypertensive disorder; seasonal allergies; vc1 - PSHx: 19:49 Appendectomy; Testicle removed; vc1 - Immunization history:: Client reports receiving the 2nd dose of the Covid vaccine. - Social history:: Smoking status: Patient denies any tobacco usage or history of. ROS: 21:05 Constitutional: Negative for body aches, chills, fever, poor PO intake, cp 21:05 Eyes: Negative for injury, pain, redness, and discharge, cp 21:05 ENT: Negative for drainage from ear(s), ear pain, sore throat, difficulty swallowing, difficulty handling secretions, 21:05 Cardiovascular: Positive for chest pain, of the left side of chest, Negative for edema, palpitations, 21:05 Respiratory: Negative for cough, wheezing, 21:05 Abdomen/GI: Negative for abdominal pain, vomiting, diarrhea, constipation, 21:05 Back: Negative for pain at rest, pain with movement, 21:05 Neuro: Negative for altered mental status, dizziness, headache, numbness, syncope, weakness, 21:05 All other systems are negative, Exam: 20:50 ECG was reviewed by the Attending Physician. cp 21:10 Constitutional: The patient appears in no acute distress, alert, awake, cp non-diaphoretic, non-toxic, well developed, well nourished, 21:10 Head/Face: Normocephalic, atraumatic. cp 21:10 Eyes: Periorbital structures: appear normal, Conjunctiva: normal, no exudate, no injection, Sclera: no appreciated abnormality, Lids and lashes: appear normal, bilaterally, 21:10 ENT: External ear(s): are unremarkable, Nose: is normal, Mouth: Lips: moist, Oral mucosa: pink and intact, moist, Posterior pharynx: is normal, airway is patent, no erythema, no exudate, 21:10 Neck: ROM/movement: is normal, is supple, without pain, no range of motions limitations, 21:10 Chest/axilla: Inspection: normal, Palpation: is normal, no crepitus, no tenderness, 21:10 Cardiovascular: Rate: tachycardic, Rhythm: regular, Heart sounds: murmur, not appreciated, Edema: is not appreciated, JVD: is not appreciated, 21:10 Respiratory: the patient does not display signs of respiratory distress, Respirations: normal, no use of accessory muscles, no retractions, labored breathing, is not present, Breath sounds: are clear throughout, no decreased breath sounds, no stridor, no wheezing, 21:10 Abdomen/GI: Inspection: abdomen appears normal, Palpation: abdomen is soft and non-tender, in all quadrants, 21:10 Back: pain, is absent, ROM is normal, 21:10 Neuro: Orientation: to person, place \T\ time. Mentation: is normal, Motor: moves all fours, strength is normal, Sensation: is normal, Gait: is steady, Vital Signs: 19:48 BP 145 / 91; Pulse 103; Resp 20; Temp 98.8; Pulse Ox 100% ; Weight 77.11 kg; Height 5 vc1 ft. 9 in. ; Pain 8/10; 21:28 BP 140 / 93; Pulse 71; Resp 18 S; Pulse Ox 97% on R/A; as6 23:46 BP 133 / 86; Pulse 75; vc1 19:48 Body Mass Index 25.10 (77.11 kg, 175.26 cm) vc1 19:48 Pain Scale: Adult vc1 MDM: 19:53 Patient medically screened. 21:00 Differential diagnosis: acute myocardial infarction, acute pericarditis, cp costochondritis, esophagitis, pericarditis, pleurisy, pneumonia, pneumothorax, pulmonary embolus, stable angina, unstable angina. 22:45 Data reviewed: vital signs, nurses notes, lab test result(s), EKG, radiologic studies, cp plain films, and as a result, I will discharge patient. 22:45 Consideration of Admission/Observation Escalation of care including cp admission/observation considered. I considered the following discharge prescriptions or medication management in the emergency department Medications were administered in the Emergency Department. See JAN. 22:45 ED course: VSS. Troponin and EKG normal. Denies chest pain with exertion. Will cp discharge to home and recommend outpatient f/u with cardiology. 10/07 20:57 Order name: Basic Metabolic Panel; Complete Time: 22:35 10/07 22:35 Interpretation: Normal except: GFR 87. 10/07 20:57 Order name: CBC with Diff; Complete Time: 22:35 10/07 22:35 Interpretation: Normal except: HGB 13.3. 10/07 20:57 Order name: D-Dimer; Complete Time: 22:35 10/07 20:57 Order name: Magnesium; Complete Time: 22:35 10/07 20:57 Order name: Troponin HS; Complete Time: 22:35 10/07 22:35 Interpretation: Troponin HS 7.6; Reviewed. 10/07 20:58 Order name: UDS; Complete Time: 22:35 10/07 22:36 Interpretation: Reviewed. 10/07 20:58 Order name: Urinalysis W/Microscopic; Complete Time: 22:35 10/07 22:35 Interpretation: Normal except: UKET 1+. 10/07 20:57 Order name: XRAY Chest (1 view); Complete Time: 22:35 10/07 22:36 Interpretation: Report review. 10/07 20:57 Order name: EKG; Complete Time: 20:58 10/07 20:57 Order name: Cardiac monitoring; Complete Time: 21:23 10/07 20:57 Order name: EKG - Nurse/Tech; Complete Time: 21:23 10/07 20:57 Order name: IV Saline Lock; Complete Time: 21:23 cp 10/07 20:57 Order name: Labs collected and sent; Complete Time: 21:23 cp 10/07 20:57 Order name: O2 Per Protocol; Complete Time: : cp 10/07 20:57 Order name: O2 Sat Monitoring; Complete Time: 21:23 cp EC:50 Rate is 76 beats/min. Rhythm is regular. [place] interval is normal. QRS interval is normal. cp QT interval is normal. T waves are Inverted in lead aVR. Interpreted by me. Reviewed by me. Administered Medications: 23:34 Drug: Ketorolac IVP 15 mg IVP once Route: IVP; Site: right antecubital; vc1 Disposition Summary: 10/07/23 22:46 Discharge Ordered Notes: Location: Home cp Problem: new cp Symptoms: have improved cp Condition: Stable cp Diagnosis - Chest pain, unspecified cp Followup: cp - With: Patrick Gage MD - When: 5 - 6 days - Reason: Recheck today's complaints Discharge Instructions: - Discharge Summary Sheet cp - Nonspecific Chest Pain, Adult cp - Aspirin and Your Heart cp Forms: - Medication Reconciliation Form cp - Thank You Letter cp - Antibiotic Education cp - Prescription Opioid Use cp - Patient Portal Instructions cp - Leadership Thank You Letter cp Prescriptions: - Ibuprofen 800 mg Oral Tablet - take 1 tablet ORAL route every 8 hours As needed take with food; 30 tablet; cp Refills: 0, Product Selection Permitted Signatures: Dispatcher [employer] EDMS Noe Chavez PA PA cp Gisel Hair RN RN vc1
--- NOTE | 2023-10-07 22:46 | ER ---
Nurse's Notes [facility] Name: Clayton Shetty Jr Age: 38 yrs Sex: Male : 1985 Arrival Date: 10/07/2023 Time: 19:05 Bed 11 Private MD: Sergio Griffin Yu Diagnosis: Chest pain, unspecified Presentation: 10/07 19:48 Chief complaint: Patient states: When I take a deep a breath it feels like it is vc1 squeezing my heart. Coronavirus screen: Vaccine status: Patient reports receiving the 2nd dose of the covid vaccine. [employer] Client denies travel out of the [place] in the last 14 days. At this time, the client does not indicate any symptoms associated with coronavirus-19. Ebola Screen: Patient negative for fever greater than or equal to 101.5 degrees Fahrenheit, and additional compatible Ebola Virus Disease symptoms Patient denies exposure to infectious person. Patient denies travel to an Ebola-affected area in the 21 days before illness onset. No symptoms or risks identified at this time. Initial Sepsis Screen: Does the patient meet any 2 criteria? Yes No. Patient's initial sepsis screen is negative. Does the patient have a suspected source of infection? No. Patient's initial sepsis screen is negative. Risk Assessment: Do you want to hurt yourself or someone else? Patient reports no desire to harm self or others. Onset of symptoms was October 07, 2023 at 08:00. 19:48 Method Of Arrival: Ambulatory vc1 19:48 Acuity: CEM 3 vc1 Triage Assessment: 19:49 General: Appears in no apparent distress. comfortable, Behavior is calm, cooperative, vc1 appropriate for age. Pain: Complains of pain in chest Pain does not radiate. Pain currently is 8 out of 10 on a pain scale. Quality of pain is described as squeezing. Cardiovascular: Chest pain is described as severe, quality is squeezing. Respiratory: No deficits noted. Airway is patent Respiratory effort is even, unlabored, Respiratory pattern is regular, symmetrical. Historical: - Allergies: 19:49 No Known Allergies; vc1 - PMHx: 19:49 Hypertensive disorder; seasonal allergies; vc1 - PSHx: 19:49 Appendectomy; Testicle removed; vc1 - Immunization history:: Client reports receiving the 2nd dose of the Covid vaccine. - Social history:: Smoking status: Patient denies any tobacco usage or history of. Screenin:24 [facility] ED Fall Risk Assessment (Adult) Score/Fall Risk Level 0 - 2 = Low Risk. Abuse as6 screen: Denies threats or abuse. Denies injuries from another. Nutritional screening: No deficits noted. Tuberculosis screening: No symptoms or risk factors identified. Assessment: 21:29 Reassessment: Patient appears in no apparent distress at this time. Patient and/or as6 family updated on plan of care and expected duration. Pain level reassessed. Patient is alert, oriented x 3, equal unlabored respirations, skin warm/dry/pink. 23:46 Reassessment: Patient and/or family updated on plan of care and expected duration. Pain vc1 level reassessed. Patient is alert, oriented x 3, equal unlabored respirations, skin warm/dry/pink. Patient states symptoms have improved. Vital Signs: 19:48 BP 145 / 91; Pulse 103; Resp 20; Temp 98.8; Pulse Ox 100% ; Weight 77.11 kg; Height 5 vc1 ft. 9 in. ; Pain 8/10; 21:28 BP 140 / 93; Pulse 71; Resp 18 S; Pulse Ox 97% on R/A; as6 23:46 BP 133 / 86; Pulse 75; vc1 19:48 Body Mass Index 25.10 (77.11 kg, 175.26 cm) vc1 19:48 Pain Scale: Adult vc1 ED Course: 19:08 Patient arrived in ED. es 19:09 Sergio Griffin DO is Private Physician. es 19:10 Noe Chavez PA is PHCP. cp 19:10 Aide Kaplan MD is Attending Physician. cp 19:48 Triage completed. vc1 19:49 Arm band placed on left wrist. vc1 21:21 XRAY Chest (1 view) In Process Unspecified. EDMS 21:23 Inserted saline lock: 20 gauge in right antecubital area, using aseptic technique. as6 Blood collected. 21:24 Bed in low position. Call light in reach. as6 22:46 Patrick Gage MD is Referral Physician. cp 23:05 Gisel Hair, AN is Primary Nurse. vc1 23:46 No provider procedures requiring assistance completed. IV discontinued, intact, vc1 bleeding controlled, No redness/swelling at site. Pressure dressing applied. Administered Medications: 23:34 Drug: Ketorolac IVP 15 mg IVP once Route: IVP; Site: right antecubital; vc1 Medication: 21:24 VIS not applicable for this client. as6 Outcome: :46 Discharge ordered by MD. cp 23:46 Discharged to home ambulatory, vc1 23:46 Discharged to 23:46 Condition: good 23:46 Discharge instructions given to patient, Instructed on discharge instructions, follow up and referral plans. medication usage, Demonstrated understanding of instructions, follow-up care, medications, Prescriptions given X 1, 23:47 Patient left the ED. vc1 Signatures: Dispatcher [employer] Natividad Garcia Corey, PA PA cp Slawson, Ashby, RN RN as6 Gisel Hair RN RN vc1
[2023-10-07] MEDS ORDERED: KETOROLAC 30 MG/ML INJ ONE (23:43)
[2023-10-07 23:57] VITALS: TEMP 98.8; O2SAT 100
[2023-10-07 23:58] VITALS: BP 133/86
--- NOTE | 2023-10-08 14:07 | EKG ---
Test Date: 2023-10-07 Test Time: 20:43:52 Group Reservations Coordinator: DANETTE MEASUREMENT RESULTS: Intervals: Rate: 76 TX: 148 QRSD: 86 QT: 380 QTc: 427 [place]: P: 46 TX: 148 QRS: -1 T: 40 INTERPRETIVE STATEMENTS: Normal sinus rhythm Normal ECG Compared to ECG 03/11/2023 21:27:53 Sinus arrhythmia no longer present Electronically Signed On 10-08-23 14:06:11 CONTACT LENS CURVE GRINDER by Patrick Gage
== END 2023-10-07 23:47 | disposition home or self-care (01) ==
LOC: ER 19:05
DX: R07.89 Other chest pain (principal); I10 Essential (primary) hypertension
CPT/HCPCS: 36415; 71045; 80048; 80307; 81001; 83735; 84484; 85025; 85379; 93005; 96374; 99284

== ENCOUNTER 2025-08-17 23:34 | Emergency (ER) | payer SELFPAY ==
[2025-08-18] MEDS ORDERED: LORazepam 2 MG/ML VIAL ONE (00:48)
[2025-08-18] MEDS ORDERED: KETOROLAC 30 MG/ML INJ ONE (00:48)
[2025-08-18] MEDS ORDERED: ACETAMINOPHEN 500 MG TAB ONE (00:49)
[2025-08-18 00:55] LABS: Absolute Lymphocytes (CBC) 1.0 K/uL (0.7-4.9); Hematocrit 44.7 % (39.6-49.0); Hemoglobin 15.0 g/dL (13.6-17.9); MCH 28.0 pg (27.0-35.0); MCHC 33.5 g/dL (32.0-36.0); MCV 83.7 fL (80-100); MPV 8.3 fL (7.6-11.3); Nucleated RBC Absolute Count 0.0 (0-0); Nucleated Red Blood Cells % 0.1 % (0-0); RBC Red Blood Cell Count 5.34 M/uL (4.33-5.43); White Blood Count 5.00 thou/uL (4.3-10.9)
[2025-08-18 01:23] LABS: ALT/SGPT 25.0 U/L (16-61); AST/SGOT 19.0 U/L (15-37); Albumin 3.8 g/dL (3.4-5.0); Albumin/Globulin Ratio 1.0 (1.1-1.8); Alkaline Phosphatase 61.0 U/L (45-117); Anion Gap 9.9 mEq/L (5.0-15.0); BUN Blood Urea Nitrogen 21.0 mg/dL (7-18); Bilirubin Indirect, Calculated 0.4 mg/dL (0.2-0.8); Globulin 4.0 g/dL (2.3-3.5); Glucose Level 97.0 mg/dL (74-106); Potassium 3.9 mEq/L (3.5-5.1); Troponin High Sensitivity 8.2 pg/mL (<58.9)
[2025-08-18] MEDS ORDERED: NA CHLORIDE 0.9% 1,000 ML ONE (01:48)
--- NOTE | 2025-08-18 03:02 | EDPHYS ---
Physician Documentation [facility] Name: Clayton Shetty Jr Age: 39 yrs Sex: Male : 1985 Arrival Date: 08/17/2025 Time: 23:34 Bed 6 Private MD: ED Physician Jovanny Barboza HPI: 08/18 01:08 This 39 yrs old Black Male presents to ER via Ambulatory with complaints of chest pain. tt7 01:08 Patient complains of pain across his upper back that is constant and tight in tt7 character. His pain is worsened by movement. He states that the pain radiates to the left side of his chest. No similar symptoms previously. No other associated symptoms. He denies shortness of breath or cough. Denies any recent physical exertion or injury. Historical: - Allergies: 08/17 23:44 No Known Allergies; kb4 - PMHx: 23:44 Hypertensive disorder; seasonal allergies; kb4 - PSHx: 23:44 Appendectomy; Testicle removed; kb4 - Immunization history:: Adult Immunizations up to date. - Infectious Disease History:: Denies. - Social history:: Smoking status: Patient denies any tobacco usage or history of. ROS: 08/18 01:09 Constitutional: negative for fever. Respiratory: negative for shortness of breath. tt7 Abdomen/GI: negative for abdominal pain, nausea, vomiting, diarrhea. MS/Extremity: negative for injury and deformity. Skin: negative for rash. Neuro: negative for focal weakness. Cardiovascular: Positive for chest pain, with movement, Negative for edema, palpitations, Vital Signs: 08/17 23:40 BP 124 / 92; Pulse 94; Resp 18; Temp 98.2; Pulse Ox 99% ; Weight 79.38 kg; Height 5 ft. kb4 9 in. ; Pain 7/10; 08/18 00:06 BP 150 / 97; Pulse 87; Resp 12; Pulse Ox 96% on R/A; mf3 01:50 BP 110 / 76; Pulse 96; Resp 15; Pulse Ox 98% on R/A; mf3 03:11 BP 144 / 92; Pulse 92; Resp 17; Pulse Ox 98% on R/A; mf3 08/17 23:40 Body Mass Index 25.84 (79.38 kg, 175.26 cm) kb4 08/17 23:40 Pain Scale: Adult kb4 Lanse Coma Score: 00:03 Eye Response: spontaneous(4). Motor Response: obeys commands(6). Verbal Response: mf3 oriented(5). Total: 15. MDM: 00:30 Medical Screening Exam initiated tt7 02:59 ED course: I have reviewed and independently interpreted the patient's chest x-ray. On tt7 my interpretation, chest x-ray demonstrates no radiographic evidence of acute cardiopulmonary disease. ED course: I have reviewed and independently interpreted the patient's EKG performed on 08/17/2025 at 2341. On my interpretation, sinus rhythm with sinus arrhythmia, ventricular rate 98 bpm, normal axis, normal QRS interval, normal ST segments, no STEMI. 08/18 00:37 Order name: Basic Metabolic Panel; Complete Time: 01:37 08/18 00:37 Order name: CBC with Diff; Complete Time: 01:37 tt08/18 00:37 Order name: LFT's; Complete Time: 01:37 tt08/18 00:37 Order name: Troponin HS; Complete Time: 01:37 08/18 01:38 Order name: CPK; Complete Time: 02:06 7 08/18 00:37 Order name: XRAY Chest (1 view) tt7 08/18 00:37 Order name: EKG; Complete Time: 00:38 08/18 00:37 Order name: Cardiac monitoring; Complete Time: 00:44 tt08/18 00:37 Order name: EKG - Nurse/Tech; Complete Time: 00:44 08/18 00:37 Order name: IV Saline Lock; Complete Time: 00:44 08/18 00:37 Order name: Labs collected and sent; Complete Time: 00:44 tt08/18 00:37 Order name: O2 Per Protocol; Complete Time: 00:45 08/18 00:37 Order name: O2 Sat Monitoring; Complete Time: 00:45 tt7 Administered Medications: 00:54 Drug: Acetaminophen PO 1000 mg PO once Route: PO; mf3 03:12 Follow up: Response: No adverse reaction mf3 00:54 Drug: Ativan IVP 0.5 mg IVP once Route: IVP; Site: right antecubital; mf3 03:12 Follow up: Response: No adverse reaction mf3 00:54 Drug: Ketorolac IVP 15 mg IVP once Route: IVP; Site: right antecubital; mf3 03:12 Follow up: Response: No adverse reaction 3 01:50 Drug: NS 0.9% IV 1000 ml IV at 1000 ml once; to be given as a bolus over 60 minutes 3 Route: IV; Rate: 1000 ml; Site: right antecubital; 03:12 Follow up: Response: No adverse reaction mf3 Disposition Summary: 08/18/25 03:01 Discharge Ordered Notes: Location: Home tt7 Problem: new tt7 Symptoms: have improved tt7 Condition: Stable tt7 Diagnosis - UPPER BACK PAIN tt7 - Chest pain, unspecified tt7 - ELEVATED SERUM CREATININE tt7 Followup: tt7 - With: Emergency Department - When: As needed - Reason: Followup: tt7 - With: Vic Medel DO - When: 1 - 2 days - Reason: Further diagnostic work-up, Recheck today's complaints Discharge Instructions: - Discharge Summary Sheet tt7 - Serum Creatinine Test tt7 Forms: - Medication Reconciliation Form tt7 - Antibiotic Education tt7 - Prescription Opioid Use tt7 - Patient Portal Instructions tt7 - Leadership Thank You Letter tt7 Signatures: Dispatcher [employer] Viktoriya Jerry RN RN kb4 Albina Wood RN RN mf3 Jovanny Barboza DO DO tt7 Corrections: (The following items were deleted from the chart) 00:38 00:37 BASIC METABOLIC PANEL+C.LAB.BRZ ordered. EDMS EDMS 00:38 00:37 CBC+H.LAB.BRZ ordered. EDMS EDMS 00:38 00:37 HEPATIC FUNCTION+C.LAB.BRZ ordered. EDMS EDMS 00:38 00:37 Troponin High Sensitivity+C.LAB.BRZ ordered. EDMS EDMS
--- NOTE | 2025-08-18 03:02 | ER ---
Nurse's Notes [facility] Name: Clayton Shetty Jr Age: 39 yrs Sex: Male : 1985 Arrival Date: 08/17/2025 Time: 23:34 Bed 6 Private MD: Diagnosis: UPPER BACK PAIN;Chest pain, unspecified;ELEVATED SERUM CREATININE Presentation: 08/17 23:40 Chief complaint: Patient states: started experiencing chest tightness with shoulder kb4 pain and SHAR side pain at 7pm tonight, reports being off of HTN medications for a "while" and restarted this last Tuesday. Coronavirus screen: At this time, unable to obtain information related to travel outside the [place] Ebola Screen: No symptoms or risks identified at this time. Initial Sepsis Screen: Does the patient meet any 2 criteria? No. Patient's initial sepsis screen is negative. Does the patient have a suspected source of infection? No. Patient's initial sepsis screen is negative. Risk Assessment: Do you want to hurt yourself or someone else? Patient reports no desire to harm self or others. Onset of symptoms was August 17, 2025 at 19:00. 23:40 Method Of Arrival: Ambulatory kb4 23:40 Acuity: CEM 2 kb4 Triage Assessment: 23:44 General: Appears in no apparent distress. comfortable, Behavior is calm, cooperative. kb4 Pain: Complains of pain in back and chest. Cardiovascular: Patient's skin is warm and dry. Chest pain is located in chest wall. Historical: - Allergies: 23:44 No Known Allergies; kb4 - PMHx: 23:44 Hypertensive disorder; seasonal allergies; kb4 - PSHx: 23:44 Appendectomy; Testicle removed; kb4 - Immunization history:: Adult Immunizations up to date. - Infectious Disease History:: Denies. - Social history:: Smoking status: Patient denies any tobacco usage or history of. Screenin/21 00:03 [facility] ED Fall Risk Assessment (Adult) History of falling in the last 3 months, mf3 including since admission No falls in past 3 months (0 pts) Confusion or Disorientation No (0 pts) Intoxicated or Sedated No (0 pts) Impaired Gait No (0 pts) Mobility Assist Device Used No (0 pt) Altered Elimination No (0 pt) Score/Fall Risk Level 0 - 2 = Low Risk Oriented to surroundings, Hourly rounding (assess needs \\T\\ fall precautionary measures) done. Abuse screen: Denies threats or abuse. Denies injuries from another. Nutritional screening: No deficits noted. Tuberculosis screening: No symptoms or risk factors identified. Never had TB. Assessment: 00:03 General: Appears in no apparent distress. comfortable, Behavior is calm, cooperative, mf3 appropriate for age. Pain: Complains of pain in base of the skull Pain does not radiate. Pain began. Neuro: Level of Consciousness is awake, alert, obeys commands, Oriented to person, place, time, situation, Appropriate for age. Cardiovascular: Capillary refill < 3 seconds. Respiratory: Airway is patent Trachea midline Respiratory effort is even, unlabored. GI: No signs and/or symptoms were reported involving the gastrointestinal system. : No signs and/or symptoms were reported regarding the genitourinary system. Derm: Skin is intact. 01:50 Reassessment: Patient and/or family updated on plan of care and expected duration. Pain mf3 level reassessed. Patient is alert, oriented x 3, equal unlabored respirations, skin warm/dry/pink. Patient denies pain at this time. Vital Signs: 08/17 23:40 BP 124 / 92; Pulse 94; Resp 18; Temp 98.2; Pulse Ox 99% ; Weight 79.38 kg; Height 5 ft. kb4 9 in. ; Pain 7/10; 08/18 00:06 BP 150 / 97; Pulse 87; Resp 12; Pulse Ox 96% on R/A; mf3 01:50 BP 110 / 76; Pulse 96; Resp 15; Pulse Ox 98% on R/A; mf3 03:11 BP 144 / 92; Pulse 92; Resp 17; Pulse Ox 98% on R/A; mf3 08/17 23:40 Body Mass Index 25.84 (79.38 kg, 175.26 cm) kb4 08/17 23:40 Pain Scale: Adult kb4 Vitals: 00:03 Cardiac Rhythm Assessment Regular Sinus rhythm W/unifocal PVC's. mf3 Ketan Coma Score: 00:03 Eye Response: spontaneous(4). Motor Response: obeys commands(6). Verbal Response: mf3 oriented(5). Total: 15. ED Course: 09/20 23:36 Patient arrived in ED. im 23:44 Triage completed. kb4 23:45 Arm band placed on right wrist. Patient placed in waiting room, in view of staff al5 members, on pulse oximetry. EKG completed in triage. Results shown to MD. 23:55 Jovanny Barboza DO is Attending Physician. tt7 23:56 Albina Wood, RN is Primary Nurse. mf3 08/18 00:03 Patient has correct armband on for positive identification. Bed in low position. Side mf3 rails up X 1. Side rails up X2. Provided Education on: pt updated on plan of care. Client placed on continuous cardiac and pulse oximetry monitoring. NIBP monitoring applied. 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 Pulse ox on. 00:03 No provider procedures requiring assistance completed. Inserted saline lock: 20 gauge mf3 in right antecubital area, using aseptic technique. Blood collected. Flushed with 10 mL NS. Patient maintains SpO2 saturation greater than 95% on room air. 00:45 Basic Metabolic Panel Sent. mf3 00:45 CBC with Diff Sent. mf3 00:45 LFT's Sent. mf3 00:45 Troponin HS Sent. mf3 01:10 XRAY Chest (1 view) In Process Unspecified. EDMS 03:00 Vic Medel DO is Referral Physician. tt7 03:11 IV discontinued, intact, bleeding controlled, No redness/swelling at site. Pressure mf3 dressing applied. Administered Medications: 00:54 Drug: Acetaminophen PO 1000 mg PO once Route: PO; mf3 03:12 Follow up: Response: No adverse reaction mf3 00:54 Drug: Ativan IVP 0.5 mg IVP once Route: IVP; Site: right antecubital; mf3 03:12 Follow up: Response: No adverse reaction mf3 00:54 Drug: Ketorolac IVP 15 mg IVP once Route: IVP; Site: right antecubital; mf3 03:12 Follow up: Response: No adverse reaction mf3 01:50 Drug: NS 0.9% IV 1000 ml IV at 1000 ml once; to be given as a bolus over 60 minutes mf3 Route: IV; Rate: 1000 ml; Site: right antecubital; 03:12 Follow up: Response: No adverse reaction mf3 Medication: 00:03 VIS not applicable for this client. mf3 Outcome: 03:01 Discharge ordered by . tt7 03:12 Discharged to home ambulatory, 3 03:12 Condition: stable 03:12 Discharge instructions given to patient, Instructed on discharge instructions, follow up and referral plans. Demonstrated understanding of instructions, follow-up care, 03:13 Patient left the ED. mf3 Signatures: Dispatcher [employer] EDMS Abbi Lopez Amanda, RN RN al5 Viktoriya Mendoza RN RN kb4 Albina Wood RN RN mf3 Jovanny Barboza DO DO tt7
[2025-08-18 03:25] VITALS: TEMP 98.2
[2025-08-18 03:28] VITALS: O2SAT 98
[2025-08-18 03:30] VITALS: BP 144/92
--- NOTE | 2025-08-18 05:48 | RAD REPORT ---
EXAM: XR Chest, 1 View CLINICAL HISTORY: The patient is 39 years old and is Male; CHEST PAIN TECHNIQUE: Frontal view of the chest. COMPARISON: No relevant prior studies available. FINDINGS: LUNGS: Unremarkable. No consolidation. PLEURAL SPACE: Unremarkable. No pneumothorax. HEART: Unremarkable. No cardiomegaly. MEDIASTINUM: Unremarkable. Normal mediastinal contour. BONES/JOINTS: Unremarkable. No acute fracture. UPPER ABDOMEN: Unremarkable as visualized. IMPRESSION: No acute cardiopulmonary process. Electronically signed by: Fatou Gonzales MD 08/18/2025 01:36 AM CDT RP Due to temporary technical issues with the PACS/[facility]ISS[facility] reporting system, reports are being hermelindo d by the in-house radiologist without review as a courtesy to ensure prompt reporting. The interpreting radiologist is fully responsible for the content of the report. Transcribed Date/Time: 08/18/2025 5:48 AM
== END 2025-08-18 03:13 | disposition home or self-care (01) ==
LOC: ER 23:34
DX: R07.9 Chest pain, unspecified (principal); M54.9 Dorsalgia, unspecified; R94.4 Abnormal results of kidney function studies; I10 Essential (primary) hypertension
CPT/HCPCS: 36415; 71045; 80048; 80076; 82550; 84484; 85025; 93005; 96374; 96375; 99285; J7030